=== PATIENT | male | born 1965 | race Caucasian/White ===

== ENCOUNTER → 2017-05-17 | Outpatient (CLI) | payer MEDICARE, OTHER ==
--- NOTE | 2017-05-17 14:37 | PN ---
PROGRESS NOTE 51-year-old gentleman has [facility] of obstructive sleep apnea-hypopnea syndrome. Recently patient had a polysomnogram and CPAP titration and I discussed results of sleep studies with patient in details. Recently, he was started on treatment with CPAP and able to use his machine without significant problems, except he does not feel very comfortable with his full face mask. I checked his CPAP unit. CPAP pressure is 11 cm of water as it was prescribed. Usage is 27/30 nights for more than 4 hours. Average usage 9.3 hours. Leak is in high range 44 L/minute. Apnea-hypopnea index is only 2.3, which is in normal range. MEDICATIONS: Lantus, NovoLog, niacin, Eliquis, aspirin, carvedilol, Lopid, Lasix, Cymbalta, lisinopril, Abilify, spironolactone, Protonix, nitroglycerin, Flonase, Claritin, B12, D supplement, temazepam. PHYSICAL EXAM: GENERAL During physical exam, patient in no distress. VITAL SIGNS BP 124/70, HR 104, RR 16, weight 263, temp 98.7, oxygen saturation room air 97%. HEENT PERRLA, EOMI, evaluation of oropharynx showed extremely low position of soft palate. NECK Supple, no JVD. Thyroid is not palpable. LUNGS Clear to percussion and to auscultation. Good air exchange. No wheezing or rhonchi. HEART S1, S2 regular. No murmurs, gallops, or rubs. ABDOMEN Obese. Soft and nontender. Bowel sounds are present. No organomegaly appreciated. EXTREMITIES No clubbing or cyanosis. PROJECT MANAGER/DESIGN MANAGER Awake, alert, and oriented X3. Cranial nerves 2 to 7 intact. There is no fasciculation or atrophy. noted. No focal deficits observed. IMPRESSION: 1. Obstructive sleep apnea-hypopnea syndrome on control with CPAP at 11 cm of water. Patient demonstrated close to 100% compliance with treatment benefitting from treatment. 2. The patient has some problem with the full-face mask. 3. Obesity. 4. Diabetes mellitus. 5. Coronary artery disease, status post CABG. 6. Status post defibrillator insertion. 7. Acid reflux. 8. History of sinusitis. PLAN: 1. We will consider to change fullface mask to nasal mask or nasal pillow mask. 2. Losing weight. 3. Continue to use CPAP every night for the whole night. 4. Lose losing weight. 5. No driving if feeling sleepiness. Thank you very much for allowing me to participate in management of your patient. Sincerely, Beka Ramirez MD, PhD, FAASM Diplomat of [employer] Hr Payroll Coordinator of [facility] Gary MMODL / IJN: [id number] /
== END | disposition home or self-care (01) ==
LOC: SLEEP 13:17
PROVIDERS: ATTEND Internal Medicine
DX: G47.33 Obstructive sleep apnea (adult) (pediatric) (principal); E66.9 Obesity, unspecified; E11.9 Type 2 diabetes mellitus without complications; I25.10 Atherosclerotic heart disease of native coronary artery without angina pectoris; K21.9 Gastro-esophageal reflux disease without esophagitis; Z95.1 Presence of aortocoronary bypass graft; Z79.899 Other long term (current) drug therapy; Z79.4 Long term (current) use of insulin; Z99.89 Dependence on other enabling machines and devices; Z79.82 Long term (current) use of aspirin; Z95.810 Presence of automatic (implantable) cardiac defibrillator; Z87.09 Personal history of other diseases of the respiratory system

== ENCOUNTER 2017-05-25 20:21 | Inpatient (IN) | payer MEDICARE, OTHER ==
[2017-05-25 21:46] LABS: Glucose,Whole Blood 135 mg/dL (75-99)
[2017-05-25] MEDS ORDERED: NALOXONE 0.4 MG/ML 1 ML VIAL IV PRN (22:07)
[2017-05-25] MEDS ORDERED: ALPRAZolam 0.25 MG TAB PO PRN (22:07)
[2017-05-25] MEDS ORDERED: TEMAZEPAM 15 MG CAP PO PRN (22:07)
[2017-05-25] MEDS ORDERED: ACETAMINOPHEN TAB 325 MG TAB PO PRN (22:07)
[2017-05-25] MEDS ORDERED: ALBUTEROL NEBULIZED 2.5 MG/3 ML INHALATION PRN (22:09)
[2017-05-25] MEDS ORDERED: TEMAZEPAM 7.5 MG CAP PO PRN (22:09)
[2017-05-25] MEDS ORDERED: NITROGLYCERIN SL TABS 0.4 MG TAB SUBLINGUAL PRN (22:09)
[2017-05-25 22:46] LABS: Basophils % (A) 0 %; Eosinophils % (A) 0 %; HCT 36.1 % (39.0-53.0); Lymphocytes % (A) 8 %; MCHC 33.3 g/dL (31.0-37.0); MCV 90.2 fL (80.0-100.0); Monocytes # (A) 0.6 k/uL (0-1.0); Monocytes % (A) 5 %; Neutrophils # (A) 10.3 k/uL (1.3-7.7); Neutrophils % (A) 84 %; Platelet Count 120 k/uL (150-450); RDW 12.7 % (11.5-15.5); WBC 12.1 k/uL (3.8-10.6)
[2017-05-25 22:56] LABS: ALT 49 U/L (21-72); AST 31 U/L (17-59); Alkaline Phosphatase 82 U/L (38-126); Anion Gap 10 mmol/L; Blood Urea Nitrogen 36 mg/dL (9-20); Calcium 8.1 mg/dL (8.4-10.2); Carbon Dioxide 25 mmol/L (22-30); Chloride 101 mmol/L (98-107); Glucose 128 mg/dL (74-99); Potassium 3.2 mmol/L (3.5-5.1); Sodium 136 mmol/L (137-145); Total Bilirubin 0.9 mg/dL (0.2-1.3); Total Protein 5.9 g/dL (6.3-8.2)
[2017-05-25] MEDS: INSULIN DETEMIR 100 UNIT/ML 10 ML VIAL SQ SCH (23:28)
[2017-05-25] MEDS: SODIUM CHLORIDE 0.9% 1,000 ML IV SCH (23:28)
[2017-05-25] MEDS ORDERED: Potassium Replacement Protocol 1 EACH MISC MISCELLANE PRN (23:32)
[2017-05-26] MEDS: ceFAZolin IN SWFI 2 GM/20 ML SYRINGE IVP SCH ×4 (00:08→23:45)
[2017-05-26] MEDS: POTASSIUM CHLORIDE ER 20 MEQ TAB.ER PO SCH ×6 (00:08→14:41)
[2017-05-26 06:21] LABS: Basophils % (A) 0 %; Eosinophils % (A) 0 %; HCT 36.3 % (39.0-53.0); HGB 11.7 gm/dL (13.0-17.5); Lymphocytes # (A) 0.9 k/uL (1.0-4.8); Lymphocytes % (A) 7 %; MCH 29.6 pg (25.0-35.0); MCHC 32.2 g/dL (31.0-37.0); MCV 91.9 fL (80.0-100.0); Mean Platelet Volume 8.5; Monocytes # (A) 0.6 k/uL (0-1.0); Monocytes % (A) 5 %; Neutrophils # (A) 10.8 k/uL (1.3-7.7); Neutrophils % (A) 87 %; Platelet Count 127 k/uL (150-450); RBC 3.95 m/uL (4.30-5.90); RDW 13.6 % (11.5-15.5); WBC 12.5 k/uL (3.8-10.6)
[2017-05-26 06:31] LABS: Anion Gap 9 mmol/L; Blood Urea Nitrogen 31 mg/dL (9-20); Calcium 8.2 mg/dL (8.4-10.2); Carbon Dioxide 26 mmol/L (22-30); Chloride 102 mmol/L (98-107); Glucose 130 mg/dL (74-99); Sodium 137 mmol/L (137-145)
[2017-05-26 06:34] LABS: Glucose,Whole Blood 138 mg/dL (75-99)
[2017-05-26 06:37] LABS: Potassium 3.4 mmol/L (3.5-5.1)
[2017-05-26] MEDS: INSULIN ASPART 100 UNIT/ML 1 ML 10 ML VIAL SQ SCH ×3 (07:14→17:37)
[2017-05-26] MEDS: PANTOPRAZOLE 40 MG TABLET PO SCH (07:15)
[2017-05-26] MEDS: GEMFIBROZIL 600 MG TAB PO SCH ×2 (07:15→17:37)
[2017-05-26] MEDS: HYDROmorphone 0.5 MG/0.5 ML SYRINGE IVP PRN (08:40)
[2017-05-26] MEDS: APIXABAN 5 MG TAB PO SCH ×2 (08:41→21:25)
[2017-05-26] MEDS: ARIPiprazole 5 MG TAB PO SCH (08:41)
[2017-05-26] MEDS: FATTY ACIDS PO SCH ×2 (08:42→20:57)
[2017-05-26] MEDS: FLUTICASONE 50MCG/SPRAY NASAL 16GM EA NOSTRIL SCH (08:42)
[2017-05-26] MEDS: OMEGA PO SCH ×2 (08:42→20:57)
[2017-05-26] MEDS: DULoxetine HCL 60 MG CAPSULE.DR PO SCH (08:42)
[2017-05-26] MEDS: LISINOPRIL 2.5 MG TAB PO SCH (08:42)
[2017-05-26] MEDS: CARVEDILOL 3.125 MG TAB PO SCH ×2 (08:42→21:25)
[2017-05-26] MEDS: MAGNESIUM OXIDE 400 MG TAB PO SCH (08:42)
[2017-05-26] MEDS: LORATADINE 10 MG TAB PO SCH (08:42)
--- NOTE | 2017-05-26 08:55 | P.CRDCN ---
History of Present Illness History of present illness: Patient was transferred from [facility]. He was complaining of nausea vomiting He denied any chest discomfort we no shortness of breath no dizziness lightheadedness. He is sleeping comfortably in bed Patient Dr. Santana. Past history of coronary artery disease coronary artery bypass grafting ICD implantation ischemic adenopathy hypertension dyslipidemia diabetes prior history of smoking Multiple coronary stents Medication list is reviewed and as documented in the chart NO KNOWN DRUG ALLERGIES Review of systems: No fever chills or rigors, no cough, phlegm or expectoration , positive GI symptoms, no hematuria, dysuria, no musculoskeletal complaints, no strokes or seizures, no skin lesions. Stress test few months back showed reduced LV systolic function which is chronic , no stress-induced ischemia noted The echo has shown severe LV dysfunction ejection fraction less than 20% Impression Patient admitted with upper GI symptoms. Denies any chest discomfort or shortness of breath does not appear to be in overt heart failure does have a chronic reduced LV systolic function CAD coronary artery bypass grafting ischemic cardio myopathy ICD implant Suggest Troponin level BMP Continue cardiac medications Past Medical History Past Medical History: Coronary Artery Disease (CAD), Diabetes Mellitus, GERD/ Reflux, Hyperlipidemia, Hypertension History of Any Multi-Drug Resistant Organisms: None Reported Past Surgical History: AICD, Cholecystectomy, Coronary Bypass/CABG, Heart Catheterization With Stent Additional Past Surgical History / Comment(s): LEFT ROTATOR CUFF REPAIR CABG-4 VESSELS, HEART STENTS X ?2-3 Past Anesthesia/Blood Transfusion Reactions: No Reported Reaction Date of Last Stent Placement:: 2011 APPROX Type of Cardiac Device: AICD Device Placement Date:: July 2014 Past Psychological History: Depression Smoking Status: Former smoker Past Alcohol Use History: None Reported Additional Past Alcohol Use History / Comment(s): QUIT SMOKING APPROX 2005, STARTED SMOKING AT AGE 18 Past Drug Use History: None Reported - Past Family History Father Family Medical History: Cancer Additional Family Medical History / Comment(s): LIVER Medications and Allergies Home Medications Medication Instructions Recorded Confirmed Type ARIPiprazole [Abilify] 5 mg PO DAILY 07/06/14 05/25/17 History DULoxetine HCL [Cymbalta] 60 mg PO DAILY 07/06/14 05/25/17 History Gemfibrozil [Lopid] 600 mg PO AC-BID 07/06/14 05/25/17 History Insulin Glargine [Lantus] 90 unit SQ HS 07/06/14 05/25/17 History Albuterol Inhaler [Ventolin Hfa 2 puff INHALATION RT-Q4H PRN 08/31/15 05/25/17 History Inhaler] Fluticasone Nasal [place] [Flonase 1 spr EA NOSTRIL DAILY 08/31/15 05/25/17 History Nasal [place]] Magnesium Oxide [Mag-Ox] 400 mg PO DAILY 08/31/15 05/25/17 History Niacin [Niacin ER] 1,000 mg PO HS 08/31/15 05/25/17 History [place]-3 Fatty Acids [[place]-3] 1 gm PO BID 08/31/15 05/25/17 History Atorvastatin [Lipitor] 80 mg PO HS #30 tab 09/04/15 05/25/17 Rx Lisinopril [Zestril] 2.5 mg PO DAILY #30 tab 09/04/15 05/25/17 Rx Nitroglycerin Sl Tabs [Nitrostat] 0.4 mg SUBLINGUAL Q5M PRN #25 tab 09/04/15 Rx Pantoprazole [Protonix] 40 mg PO AC-BRKFST #30 tablet.dr 09/04/15 05/25/17 Rx Apixaban [Eliquis] 5 mg PO BID 02/13/17 05/25/17 History Carvedilol [Coreg] 3.125 mg PO BID 02/13/17 05/25/17 History Ergocalciferol [Vitamin D2 50,000 unit PO Q7D 02/13/17 05/25/17 History ([place])] Hydrocodone/Acetaminophen [[place] 1 tab PO TID PRN 02/13/17 05/25/17 History 7.5-325] Insulin Aspart [NovoLOG Flexpen] 15 units SQ AC-TID 02/13/17 05/25/17 History Loratadine [Claritin] 10 mg PO DAILY 02/13/17 05/25/17 History Temazepam [Restoril] 7.5 - 15 mg PO HS PRN 02/13/17 05/25/17 History Allergies Allergy/AdvReac Type Severity Reaction Status Date / Time No Known Allergies Allergy Verified 05/25/17 22:13 Physical Exam Vitals: Vital Signs Temp Pulse Resp BP Pulse Ox 05/26/17 08:15 98.2 F 104 H 18 135/72 96 05/26/17 04:00 98.5 F 95 16 120/76 96 05/26/17 00:00 97.9 F 90 16 100/56 98 05/25/17 22:02 99.2 F 90 16 116/65 95 Intake and Output 05/25/17 05/26/17 05/26/17 22:59 06:59 14:59 Intake Total 660 Output Total 40 750 Balance 620 -750 Intake: IV 160 Sodium Chloride 0.9% 1, 160 000 ml @ 20 mls/hr IV . Q24H [facility] Rx#:[id number] Oral 500 Output: Urine 750 Stool 40 Other: Voiding Method Toilet Urinal # Voids 1 Weight 115.212 kg 117.1 kg Results 05/26/17 05:50 05/26/17 05:50 Cardiac Enzymes 05/25/17 Range/Units 22:25 AST 31 (17-59) U/L CBC 05/25/17 05/26/17 Range/Units 22:25 05:50 WBC 12.1 H 12.5 H (3.8-10.6) k/uL RBC 4.00 L 3.95 L (4.30-5.90) m/uL Hgb 12.0 L 11.7 L (13.0-17.5) gm/dL Hct 36.1 L 36.3 L (39.0-53.0) % Plt Count 120 L 127 L (150-450) k/uL Comprehensive Metabolic Panel 05/25/17 05/26/17 Range/Units 22:25 05:50 Sodium 136 L 137 (137-145) mmol/L Potassium 3.2 L 3.4 L (3.5-5.1) mmol/L Chloride 101 102 (98-107) mmol/L Carbon Dioxide 25 26 (22-30) mmol/L BUN 36 H 31 H (9-20) mg/dL Creatinine 1.00 1.00 (0.66-1.25) mg/dL Glucose 128 H 130 H (74-99) mg/dL Calcium 8.1 L 8.2 L (8.4-10.2) mg/dL AST 31 (17-59) U/L ALT 49 (21-72) U/L Alkaline Phosphatase 82 (38-126) U/L Total Protein 5.9 L (6.3-8.2) g/dL Albumin 3.0 L (3.5-5.0) g/dL Current Medications Generic Name Dose Route Start Last Admin Trade Name Freq PRN Reason Stop Dose Admin Acetaminophen 650 mg 05/25/17 22:07 Tylenol Tab PO Q6HR PRN Mild Pain or Fever > 100.5 Hydrocodone Bitart/Acetaminophen 1 each 05/25/17 22:07 [place] 5-325 PO Q4HR PRN Moderate Pain Hydrocodone Bitart/Acetaminophen 1 each 05/25/17 22:09 [place] 7.5-325 PO TID PRN Pain Albuterol Sulfate 2.5 mg 05/25/17 22:09 Ventolin Nebulized INHALATION RT-Q4H PRN Shortness Of Breath Alprazolam 0.25 mg 05/25/17 22:07 Xanax PO Q6HR PRN Anxiety Apixaban 5 mg 05/26/17 09:00 05/26/17 08:41 Eliquis PO 5 mg BID [facility] Administration Aripiprazole 5 mg 05/26/17 09:00 05/26/17 08:41 Abilify PO 5 mg DAILY [facility] Administration Atorvastatin Calcium 80 mg 05/26/17 21:00 Lipitor PO HS [facility] Carvedilol 3.125 mg 05/26/17 09:00 05/26/17 08:42 Coreg PO 3.125 mg BID [facility] Administration Cefazolin Sodium 2 gm 05/26/17 00:00 05/26/17 00:08 Kefzol IVP 2 gm Q8HR [facility] Administration Duloxetine HCl 60 mg 05/26/17 09:00 05/26/17 08:42 Cymbalta PO 60 mg DAILY [facility] Administration Ergocalciferol 50,000 unit 05/27/17 09:00 Vitamin D2 PO Q7D [facility] Fluticasone Propionate 1 spray 05/26/17 09:00 05/26/17 08:42 Flonase Nasal [place] EA NOSTRIL 1 spray DAILY [facility] Administration Gemfibrozil 600 mg 05/26/17 07:30 05/26/17 07:15 Lopid PO 600 mg AC-BID [facility] Administration Hydromorphone HCl 0.5 mg 05/25/17 22:12 05/26/17 08:40 Dilaudid IVP 0.5 mg Q6HR PRN Administration Severe Pain Sodium Chloride 1,000 mls @ 20 mls/hr 05/25/17 22:15 05/25/17 23:28 Saline 0.9% IV 20 mls/hr .Q24H [facility] Administration Insulin Aspart 15 unit 05/26/17 07:30 05/26/17 07:14 Novolog SQ 15 unit AC-TID [facility] Administration Insulin Detemir 90 unit 05/25/17 22:15 05/25/17 23:28 Levemir SQ 90 unit HS [facility] Administration Lisinopril 2.5 mg 05/26/17 09:00 05/26/17 08:42 Zestril PO 2.5 mg DAILY [facility] Administration Loratadine 10 mg 05/26/17 09:00 05/26/17 08:42 Claritin PO 10 mg DAILY [facility] Administration Magnesium Oxide 400 mg 05/26/17 09:00 05/26/17 08:42 Mag-Ox PO 400 mg DAILY [facility] Administration Miscellaneous Information 1 each 05/25/17 23:32 Potassium Per Protocol MISCELLANE DAILY PRN Per Protocol Protocol Naloxone HCl 0.2 mg 05/25/17 22:07 Narcan IV Q2M PRN Opioid Reversal Niacin 1,000 mg 05/26/17 21:00 Niacin Tr PO HS [facility] Nitroglycerin 0.4 mg 05/25/17 22:09 Nitrostat SUBLINGUAL Q5M PRN Chest Pain Non-Formulary Medication 1 gm 05/26/17 09:00 05/26/17 08:42 [place]-3 Fatty Acids [[place]-3] PO Not Given BID [facility] Pantoprazole Sodium 40 mg 05/26/17 07:30 05/26/17 07:15 Protonix PO 40 mg AC-BRKFST [facility] Administration Potassium Chloride 20 meq 05/26/17 08:00 05/26/17 08:41 K-Dur 20 PO 05/26/17 09:01 20 meq Q1HR [facility] Administration Temazepam 15 mg 05/25/17 22:07 Restoril PO HS PRN Insomnia Intake and Output 05/25/17 05/26/17 05/26/17 22:59 06:59 14:59 Intake Total 660 Output Total 40 750 Balance 620 -750 Intake: IV 160 Sodium Chloride 0.9% 1, 160 000 ml @ 20 mls/hr IV . Q24H [facility] Rx#:[id number] Oral 500 Output: Urine 750 Stool 40 Other: Voiding Method Toilet Urinal # Voids 1 Weight 115.212 kg 117.1 kg 05/26/17 05:50 05/26/17 05:50
[2017-05-26 09:01] LABS: Appearance,Urine Clear (Clear); Bilirubin,Urine Negative (Negative); Blood,Urine Negative (Negative); Color,Urine Yellow; Glucose,Urine (UA) Negative (Negative); Ketones,Urine Negative (Negative); Leukocyte Esterase,Urine Negative (Negative); Nitrite,Urine Negative (Negative); PH, Urine 5.5 (5.0-8.0); Protein,Urine Trace (Negative); Specific Gravity,Urine 1.018 (1.001-1.035); Urobilinogen,Urine <2.0 mg/dL (<2.0)
--- NOTE | 2017-05-26 09:13 | HP ---
HISTORY AND PHYSICAL DATE OF SERVICE: 05/25/2017 CHIEF COMPLAINT: Pain and swelling of the left leg and cellulitis. HISTORY OF PRESENT ILLNESS: This 51-year-old gentleman with a past medical history of multiple medical problems including CAD, history of diabetes mellitus, GERD, hypertension, hyperlipidemia, AICD, CAD, CABG, stent, depression being followed by Dr. Hilaria Patel in the outpatient setting apparently presented to [facility] with complaints of pain and swelling and discomfort of the left leg, which is going for several days according to him. The patient was noted to have hypotension, possibly due to sepsis suspected. Patient is on IV fluids, antibiotics and subsequently patient was transferred to [facility] for evaluation and treatment. Lactic acid is elevated elsewhere. There is no history of any chest pain, palpitation. No headache, loss of consciousness, seizures at this time. PAST MEDICAL HISTORY: History of CAD, diabetes mellitus type 2, GERD, hypertension, hyperlipidemia, AICD, cholecystectomy, CAD, CABG. MEDICATIONS: Prior to admission include home medications are: 1. Restoril 7.5/250 mg q.h.s. p.r.n. 2. Protonix 40 mg daily. 3. [place]-3 fatty acids p.o. b.i.d. 4. Nitrostat 0.4 mg p.r.n. 5. Niacin ER 1000 mg q.h.s. 6. Magnesium oxide 400 mg b.i.d. 7. Claritin 10 mg p.o. daily. 8. Zestril 2.5 mg p.o. daily. 9. Lantus 90 units subcu q.h.s. 10.NovoLog FlexPen 15 units a.c. t.i.d. 11.[place] 7.5 t.i.d. p.r.n. 12.Lopid 600 mg a.c. b.i.d. 13.Flonase 1 spray daily. 14.Vitamin D2 50,000 q.7 days. 15.Cymbalta 60 mg p.o. daily. 16.Coreg 3.125 mg p.o. b.i.d. 17.Lipitor 80 mg q.h.s. 18.Eliquis 5 mg p.o. b.i.d. 19.Ventolin HFA 2 puffs q.4h p.r.n. 20.Abilify 5 mg p.o. daily. ALLERGIES: None. FAMILY HISTORY: History of liver cancer in the family. SOCIAL HISTORY: Previous smoking. No history of current smoking or alcohol intake. REVIEW OF SYSTEMS: ENT: Diminished vision. No diminished hearing. CARDIOVASCULAR: No angina, palpitations. RESPIRATORY: No cough or hemoptysis. GI: No nausea. : No dysuria. NERVOUS SYSTEM: As mentioned. ALLERGIES/IMMUNOLOGY: No asthma. MUSCULOSKELETAL: As mentioned earlier. HEMATOLOGY: No history of anemia. ENDOCRINE: As mentioned earlier. CONSTITUTIONAL: As mentioned earlier. DERMATOLOGY: Negative. RHEUMATOLOGY: Negative. PSYCHIATRIC: As mentioned earlier. PHYSICAL EXAM: Patient is alert, oriented x3. Pulse 90, blood pressure 116/60, respiration 18, temperature 99.2, pulse ox 94% room air. HEENT: Conjunctivae normal. Oral mucosa moist. Neck is no jugular venous distention. No carotid bruit. No lymph node enlargement. CARDIOVASCULAR: S1, S2. No S3, no S4. RESPIRATORY: Breath sounds diminished in the bases. A few scattered rhonchi. No crackles. ABDOMEN: Soft, nontender. No mass palpable. LEGS: Left leg swelling erythematous and evidence of cellulitis also present, minimally tender. Multiple areas of excoriations and ulcerations also noted. The exact etiology is unknown to the patient on both legs. NERVOUS SYSTEM: Higher functions as mentioned earlier, moves all 4 limbs, no focal motor sensory deficits. LYMPHATICS: No lymphadenopathy in the neck, axillae, groin. SKIN: No ulcers, rash or bleeding. LABS: WBC 12.2, hemoglobin is 12, sodium 133, potassium 3.2, albumin 3. ASSESSMENT: 1. Acute cellulitis of the bilateral legs, left more than the right with some ulcerations with sepsis present on admission. 2. Increased WBC. 3. Anemia of chronic disease. 4. Thrombocytopenia. 5. Hyponatremia. 6. Hypokalemia. 7. History of coronary artery disease, CABG, stent. 8. History of diabetes type 2. 9. Hypertension. 10.Hyperlipidemia. 11.Gastroesophageal reflux disease. 12.Possible diabetic peripheral neuropathy. 13.History of AICD. 14.History of depression. 15.Remote history of nicotine dependence. RECOMMENDATIONS AND DISCUSSION: This 51-year-old gentleman who presented with multiple complex medical issues, we will monitor the patient closely. Continue the current management and symptomatic treatment. Continue broad spectrum IV antibiotics. Obtain cultures. Resume the home medications. DVT prophylaxis. Obtain cultures. Prognosis guarded because of multiple complex medical issues. Further recommendations to follow. Copy of dictation being forwarded to Dr. Hilaria Patel who is the primary physician. [id number] / LETTYN: [id number] /
[2017-05-26] MEDS: HYDROcodone/APAP 5-325MG 1 EACH TAB PO PRN ×2 (10:15→17:37)
[2017-05-26 12:17] LABS: Glucose,Whole Blood 159 mg/dL (75-99)
--- NOTE | 2017-05-26 16:59 | US ---
EXAMINATION TYPE: US venous doppler duplex LE LT DATE OF EXAM: 05/26/2017 4:44 PM COMPARISON: None CLINICAL HISTORY: 51-year-old male R/O DVT LEFT LEG. Pt states painful, swollen left leg SIDE PERFORMED: Left TECHNIQUE: The lower extremity deep venous system is examined utilizing real time linear array sonog lucas with graded compression, doppler sonography and color-flow sonography. FINDINGS: VESSELS IMAGED: External Iliac Vein (EIV) Common Femoral Vein Deep Femoral Vein Greater Saphenous Vein * Femoral Vein Popliteal Vein Small Saphenous Vein * Proximal Calf Veins (* superficial vessels) Left Leg: Negative for DVT Numerous prominent but nonenlarged left inguinal lymph nodes measuring up to 1 cm short axis. Mildly complex Wen's cyst left pop fossa= 4.2 x 2.0 x 3.9 cm IMPRESSION: 1. No evidence for DVT within the left lower extremity imaged from the groin to the upper calf. 2. Findings suggest a small to moderate sized, mildly complex Wen's cyst. 3. Numerous prominent but nonenlarged left inguinal lymph nodes probably reactive. These can be asses sed and followed clinically.
[2017-05-26 17:13] LABS: Glucose,Whole Blood 109 mg/dL (75-99)
[2017-05-26] MEDS ORDERED: POTASSIUM CHLORIDE ER 20 MEQ TAB.ER PO SCH (19:00)
[2017-05-26] MEDS: ATORVASTATIN 80 MG TAB PO SCH (21:25)
[2017-05-26] MEDS: NIACIN TR 250 MG CAPSULE.ER PO SCH (21:25)
[2017-05-26 21:35] LABS: Glucose,Whole Blood 70 mg/dL (75-99)
[2017-05-26] MEDS: INSULIN DETEMIR 100 UNIT/ML 10 ML VIAL SQ SCH (22:32)
[2017-05-26] MEDS: SODIUM CHLORIDE 0.9% 1,000 ML IV SCH (22:32)
[2017-05-27] MEDS: HYDROmorphone 0.5 MG/0.5 ML SYRINGE IVP PRN ×2 (00:29→15:17)
[2017-05-27] MEDS: HYDROcodone/APAP 7.5-325MG 1 EACH TAB PO PRN ×3 (04:54→20:07)
[2017-05-27 06:36] LABS: Basophils % (A) 0 %; Eosinophils % (A) 0 %; HCT 34.9 % (39.0-53.0); HGB 11.4 gm/dL (13.0-17.5); Lymphocytes % (A) 9 %; MCH 29.4 pg (25.0-35.0); MCHC 32.5 g/dL (31.0-37.0); MCV 90.3 fL (80.0-100.0); Mean Platelet Volume 8.7; Monocytes # (A) 0.7 k/uL (0-1.0); Monocytes % (A) 7 %; Neutrophils # (A) 9.1 k/uL (1.3-7.7); Neutrophils % (A) 83 %; Platelet Count 127 k/uL (150-450); RBC 3.86 m/uL (4.30-5.90); RDW 13.2 % (11.5-15.5)
[2017-05-27 06:46] LABS: Glucose,Whole Blood 193 mg/dL (75-99)
[2017-05-27 06:47] LABS: Anion Gap 8 mmol/L; Blood Urea Nitrogen 25 mg/dL (9-20); Calcium 7.9 mg/dL (8.4-10.2); Carbon Dioxide 26 mmol/L (22-30); Chloride 103 mmol/L (98-107); Glucose 105 mg/dL (74-99); Sodium 137 mmol/L (137-145)
--- NOTE | 2017-05-27 07:05 | PN ---
PROGRESS NOTE DATE OF SERVICE: 05/26/2017 This 51-year-old gentleman who was admitted with pain and swelling of the left leg and cellulitis also had hypotension also. The patient had features of early sepsis. The patient also had extensive cardiac history. The patient does have some swelling on the left leg also. The ejection fraction found to be 20%. No stress induced ischemia directly in the recent stress test. A venous Doppler was ordered today which showed a Wen's cyst, but no DVT. Lymph nodes also noted. PAST MEDICAL HISTORY: Reviewed. REVIEW OF SYSTEMS: CARDIOVASCULAR: As mentioned. RESPIRATORY: As mentioned. GI: No nausea. : No dysuria. NERVOUS SYSTEM: As mentioned earlier. CURRENT MEDICATIONS: 1. Tylenol 650 q.6 p.r.n. 2. [place] 5 mg q.4h p.r.n. 3. [place] 7.5 t.i.d. p.r.n. 4. Ventolin 2.5 q.4h p.r.n. 5. Xanax 0.5 q.6h p.r.n. 6. Eliquis 5 mg p.o. b.i.d. 7. Abilify 5 mg p.o. daily. 8. Lipitor 80 mg q.h.s. 9. Coreg 3.125 mg b.i.d. 10.Kefzol 2 g IV q.8h. 11.Cymbalta 60 mg daily. 12.Vitamin D2 50,000 daily. 13.Flonase 1 daily. 14.Lopid 600 mg b.i.d. 15.Dilaudid 0.5 q.6h p.r.n. 16.NovoLog and Levemir 19 units subcu q.h.s. 17.Zestril 2.5 mg. 18.Claritin 10 mg. 19.Magnesium oxide 400 mg daily. 20.Narcan 0.2 q.2h p.r.n. 21.Niacin 1000 mg q.h.s. 22.Nitrostat 0.4 mg p.r.n. 23.[place]-3 fatty acids b.i.d. 24.Protonix 40 mg daily. 25.Restoril 50 mg q.h.s. p.r.n. PHYSICAL EXAM: Patient is alert, oriented x3. Pulse is 106. Blood pressure 138/71, respiration 18, temp 98.6, pulse ox 94% room air. HEENT: Conjunctivae normal. Oral mucosa moist. Neck is no jugular venous distention. No carotid bruit. No lymph node enlargement. CARDIOVASCULAR: S1, S2. RESPIRATORY: Breath sounds diminished in the bases. A few scattered rhonchi, no crackles. ABDOMEN: Soft, nontender. LEGS: Left leg edema and swelling present and tenderness also present. Significant cellulitis also present. Pulses diminished bilaterally NERVOUS SYSTEM: Higher function as mentioned earlier, moves all 4 limbs. Otherwise minimal sensory neuropathy present bilaterally. SKIN: As mentioned earlier. LAB INVESTIGATIONS: At this time shows WBC 12.5, hemoglobin 11.7, platelets 127, otherwise glucose 70. C difficile is negative. ASSESSMENT: 1. Acute cellulitis of bilateral legs, left more than the right with multiple ulcerations and sepsis present on admission. 2. Increased WBC. 3. Anemia of chronic disease. 4. Thrombocytopenia. 5. Hyponatremia. 6. Hypokalemia. 7. History of coronary artery disease, CABG, stent. 8. Congestive heart failure with chronic systolic dysfunction, ejection fraction 20%. 9. History of diabetes mellitus type 2. 10.Hypertension. 11.Hyperlipidemia. 12.Gastroesophageal reflux disease. 13.Possible diabetic peripheral neuropathy. 14.History AICD. 15.History of depression. 16.Remote history of nicotine dependence. 17.FULL CODE. RECOMMENDATIONS AND DISCUSSION: This 51-year-old gentleman who presented with multiple complex medical issues, will monitor the patient closely. Continue the current management and symptomatic treatment. At this time, I recommend broad-spectrum IV antibiotics. I would also recommend infectious disease evaluation. The cultures are negative so far. Otherwise repeat labs will be ordered. Continue the rest of the medications. DVT prophylaxis. Guarded prognosis. Multiple complex medical issues and further recommendations to follow. Monitor blood sugars closely. MMODL / IJN: [id number] /
[2017-05-27] MEDS: GEMFIBROZIL 600 MG TAB PO SCH ×2 (07:08→17:46)
[2017-05-27] MEDS: INSULIN ASPART 100 UNIT/ML 1 ML 10 ML VIAL SQ SCH ×7 (07:08→20:07)
[2017-05-27] MEDS: PANTOPRAZOLE 40 MG TABLET PO SCH (07:08)
[2017-05-27] MEDS: FLUTICASONE 50MCG/SPRAY NASAL 16GM EA NOSTRIL SCH (08:43)
[2017-05-27] MEDS: ARIPiprazole 5 MG TAB PO SCH (08:44)
[2017-05-27] MEDS: CARVEDILOL 3.125 MG TAB PO SCH ×2 (08:44→20:09)
[2017-05-27] MEDS: DULoxetine HCL 60 MG CAPSULE.DR PO SCH (08:44)
[2017-05-27] MEDS: APIXABAN 5 MG TAB PO SCH ×2 (08:44→20:08)
[2017-05-27] MEDS: OMEGA PO SCH ×2 (08:45→20:09)
[2017-05-27] MEDS: LISINOPRIL 2.5 MG TAB PO SCH (08:45)
[2017-05-27] MEDS: FATTY ACIDS PO SCH ×2 (08:45→20:09)
[2017-05-27] MEDS: LORATADINE 10 MG TAB PO SCH (08:45)
[2017-05-27] MEDS: MAGNESIUM OXIDE 400 MG TAB PO SCH (08:45)
[2017-05-27] MEDS ORDERED: ERGOCALCIFEROL 50,000 UNIT CAP PO SCH (09:00)
[2017-05-27] MEDS: ceFAZolin IN SWFI 2 GM/20 ML SYRINGE IVP SCH ×3 (09:39→23:39)
[2017-05-27 11:43] LABS: Glucose,Whole Blood 392 mg/dL (75-99)
--- NOTE | 2017-05-27 13:30 | P.PN ---
Subjective Patient is doing well. He denies any chest discomfort no undue shortness of breath or dizziness or lightheadedness or palpitations On examination his blood pressure is 104/62 mmHg pulse rate in the 80s and 90s, afebrile 98.3F Breath sounds are clear no rhonchi no crackles heart sounds are normal normal S1 normal S2 Abdomen is soft nontender Extended is warm no edema Impression Known cardiac myopathy and congestive heart failure systolic, chronic normal cardiac enzymes Status post ICD implant Suggest Continue current medications without any changes Objective - Vital Signs Vital signs: Vital Signs Temp 98.3 F 05/27/17 08:23 Pulse 92 05/27/17 08:23 Resp 16 05/27/17 08:23 BP 104/62 05/27/17 08:23 Pulse Ox 94 L 05/27/17 08:23 Intake & Output 05/26/17 05/27/17 05/27/17 18:59 06:59 18:59 Intake Total 180 1340 360 Output Total 790 350 Balance -610 990 360 Weight 117.1 kg 117.934 kg Intake: IV 160 Sodium Chloride 0.9% 1, 160 000 ml @ 20 mls/hr IV . Q24H [facility] Rx#:[id number] Intake, IV Titration 1000 Amount Sodium Chloride 0.9% 1, 1000 000 ml @ 20 mls/hr IV . Q24H [facility] Rx#:[id number] Oral 180 180 360 Output: Urine 750 350 Stool 40 Other: Voiding Method Toilet Toilet Toilet Urinal Urinal Urinal # Voids 1 - Labs CBC & Chem 7: 05/27/17 05:59 05/27/17 05:59 Labs: Abnormal Lab Results - Last 24 Hours (Table) 05/26/17 05/26/17 05/27/17 Range/Units 17:09 21:15 05:59 WBC 11.0 H (3.8-10.6) k/uL RBC 3.86 L (4.30-5.90) m/uL Hgb 11.4 L (13.0-17.5) gm/dL Hct 34.9 L (39.0-53.0) % Plt Count 127 L (150-450) k/uL Neutrophils # 9.1 H (1.3-7.7) k/uL BUN (9-20) mg/dL Glucose (74-99) mg/dL POC Glucose (mg/dL) 109 H 70 L (75-99) mg/dL Calcium (8.4-10.2) mg/dL 05/27/17 05/27/17 05/27/17 Range/Units 05:59 06:36 11:31 WBC (3.8-10.6) k/uL RBC (4.30-5.90) m/uL Hgb (13.0-17.5) gm/dL Hct (39.0-53.0) % Plt Count (150-450) k/uL Neutrophils # (1.3-7.7) k/uL BUN 25 H (9-20) mg/dL Glucose 105 H (74-99) mg/dL POC Glucose (mg/dL) 193 H 392 H (75-99) mg/dL Calcium 7.9 L (8.4-10.2) mg/dL Microbiology - Last 24 Hours (Table) 05/25/17 22:25 Blood Culture - Preliminary Blood No Growth after 24 hours 05/25/17 22:40 Gram Stain - Preliminary Foot - Left Wound Culture - Preliminary
[2017-05-27 16:01] LABS: Glucose,Whole Blood 84 mg/dL (75-99)
[2017-05-27 17:14] LABS: Glucose,Whole Blood 78 mg/dL (75-99)
--- NOTE | 2017-05-27 18:38 | PN ---
PROGRESS NOTE DATE OF SERVICE: 05/27/2017 INTERIM HISTORY: This 51-year-old gentleman who was admitted with acute cellulitis bilateral legs , also with possible history of sepsis also. The patient's blood sugar is also fluctuating at this time. The venous Doppler showed no acute DVT. No chest pain. No palpitations. EXAM: Alert and oriented x3. Pulse is 95, blood pressure 111/56, respirations 16, temperature 98.2, pulse ox 99% on room air. HEENT: Conjunctivae normal. Neck is no jugular venous distention. Cardiovascular: S1, S2. Respirations: Breath sounds diminished in the bases. A few scattered rhonchi and no crackles. Abdomen is soft, obese, nontender. Legs: Left leg edema cellulitis. Central nervous system: No focal deficits. LAB STUDIES: WBC 11, hemoglobin 11.4, glucose 392. ASSESSMENT: 1. Acute cellulitis of bilateral legs, left more than the right with multiple ulcerations, sepsis present on admission. 2. Increased WBC. 3. Anemia of chronic disease. 4. Hypoglycemia with diabetes type 2, uncontrolled. 5. Thrombocytopenia. 6. Hyponatremia. 7. Hypokalemia. 8. History of coronary artery disease, coronary artery bypass grafting, stent. 9. History of congestive heart failure with chronic systolic dysfunction, ejection fraction 20%. 10.History of diabetes type 2. 11.Hypertension. 12.Hyperlipidemia. 13.Gastroesophageal reflux disease. 14.History of diabetic nephropathy. 15.History AICD. 16.History of depression. 17.Remote history of nicotine dependence. 18.FULL CODE. RECOMMENDATIONS AND DISCUSSION: Recommend to continue current medications, continue symptomatic treatment. Adjust dose of nighttime insulin. Otherwise continue the rest of medication. Continue the broad- spectrum IV antibiotics. The cultures are negative so far. Closely follow. Further recommendations to follow. MMODL / IJN: [id number] / MARY
[2017-05-27 19:20] LABS: Hemoglobin A1C 6.9 % (4.0-6.0)
[2017-05-27 20:03] LABS: Glucose,Whole Blood 174 mg/dL (75-99)
[2017-05-27] MEDS: NIACIN TR 250 MG CAPSULE.ER PO SCH (20:08)
[2017-05-27] MEDS: ATORVASTATIN 80 MG TAB PO SCH (20:08)
[2017-05-27] MEDS: INSULIN DETEMIR 100 UNIT/ML 10 ML VIAL SQ SCH (21:31)
[2017-05-27] MEDS: SODIUM CHLORIDE 0.9% 1,000 ML IV SCH (23:43)
[2017-05-28] MEDS: HYDROcodone/APAP 7.5-325MG 1 EACH TAB PO PRN ×3 (05:17→22:20)
[2017-05-28 07:16] LABS: Glucose,Whole Blood 121 mg/dL (75-99)
[2017-05-28] MEDS: INSULIN ASPART 100 UNIT/ML 1 ML 10 ML VIAL SQ SCH ×7 (07:38→21:34)
[2017-05-28 07:41] LABS: Basophils % (A) 0 %; Eosinophils # (A) 0.1 k/uL (0-0.7); Eosinophils % (A) 1 %; Lymphocytes # (A) 1.1 k/uL (1.0-4.8); Lymphocytes % (A) 11 %; MCH 29.6 pg (25.0-35.0); MCHC 32.4 g/dL (31.0-37.0); MCV 91.5 fL (80.0-100.0); Mean Platelet Volume 8.4; Monocytes # (A) 0.7 k/uL (0-1.0); Monocytes % (A) 7 %; Neutrophils # (A) 7.9 k/uL (1.3-7.7); Neutrophils % (A) 80 %; Platelet Count 143 k/uL (150-450); RBC 3.71 m/uL (4.30-5.90); RDW 12.5 % (11.5-15.5); WBC 9.9 k/uL (3.8-10.6)
[2017-05-28 08:13] LABS: Anion Gap 8 mmol/L; Blood Urea Nitrogen 22 mg/dL (9-20); Calcium 8.3 mg/dL (8.4-10.2); Carbon Dioxide 26 mmol/L (22-30); Chloride 102 mmol/L (98-107); Glucose 119 mg/dL (74-99); Sodium 136 mmol/L (137-145)
[2017-05-28] MEDS: GEMFIBROZIL 600 MG TAB PO SCH ×2 (08:13→17:33)
[2017-05-28] MEDS: ARIPiprazole 5 MG TAB PO SCH (08:14)
[2017-05-28] MEDS: PANTOPRAZOLE 40 MG TABLET PO SCH (08:14)
[2017-05-28] MEDS: APIXABAN 5 MG TAB PO SCH ×2 (08:14→22:21)
[2017-05-28] MEDS: DULoxetine HCL 60 MG CAPSULE.DR PO SCH (08:15)
[2017-05-28] MEDS: FLUTICASONE 50MCG/SPRAY NASAL 16GM EA NOSTRIL SCH (08:15)
[2017-05-28] MEDS: LISINOPRIL 2.5 MG TAB PO SCH (08:15)
[2017-05-28] MEDS: CARVEDILOL 3.125 MG TAB PO SCH ×2 (08:15→22:21)
[2017-05-28] MEDS: MAGNESIUM OXIDE 400 MG TAB PO SCH (08:16)
[2017-05-28] MEDS: LORATADINE 10 MG TAB PO SCH (08:16)
[2017-05-28] MEDS: FATTY ACIDS PO SCH ×2 (08:17→22:21)
[2017-05-28] MEDS: OMEGA PO SCH ×2 (08:17→22:21)
[2017-05-28] MEDS: ceFAZolin IN SWFI 2 GM/20 ML SYRINGE IVP SCH ×3 (08:24→23:57)
--- NOTE | 2017-05-28 09:06 | CONS ---
CONSULTATION DATE OF SERVICE: 05/27/2017. REASON FOR CONSULTATION: Left foot and leg cellulitis and sepsis. Antibiotic recommendations. HISTORY OF PRESENT ILLNESS: The patient is a 51-year-old male with past medical history significant for diabetes mellitus. The patient apparently started using some new shoes over the last few weeks. The patient did have underlying diabetic neuropathy, no significant Sensation in foot area. The patient noticed to have some swelling and redness of the left foot with at times some dull aching pain that was not improving with symptoms going on for the last 2 weeks pain was mild to 3 out of 10 and no radiation. Hence he presented to the [facility]. In the [facility], the patient was noted to be septic with hypotension, elevated white count, elevated lactic acid. The patient has been given IV fluids and subsequent transfer to the [facility] for further evaluation. The patient did have a left lower extremity Doppler that was negative for DVT and showed inguinal lymphadenopathy. ID was consulted for further recommendation regarding antibiotic therapy. REVIEW OF SYSTEMS: Constitutional: Positive for weakness and some chills. Eyes no complaint. ENT no complaint. Respiratory no complaint. Cardiovascular no complaint. Genitourinary no complaint. Gastrointestinal: No complaint. Musculoskeletal as per HPI. Integumentary as per HPI. PSYCHOLOGICAL: No complaint. Endocrine no complaint. Neurologic no complaint. PAST MEDICAL HISTORY: Significant for diabetes mellitus type 2, gastroesophageal reflux disease, hypertension, hyperlipidemia, AICD. PAST SURGICAL HISTORY: ICD placement, cholecystectomy, and coronary bypass grafting. SOCIAL HISTORY: Remote history of smoking. No drinking or drug use. FAMILY HISTORY: No pertinent findings noticed. ALLERGIES: No known drug allergies. MEDICATION: Medications include the patient is currently on: Tylenol, Russell, Xanax, Eliquis , Abilify, Lipitor, Coreg, cefazolin 2 g q.8h, Cymbalta, vitamin D2, Flonase, Lopid, Dilaudid, NovoLog Levemir, Zestril, Claritin, Mag oxide, Narcan, niacin, Nitrostat, Protonix, and Restoril. EXAMINATION: Blood pressure is 106/61 with a pulse of 97, temperature of 98.2 he is 99% on room air. General description is a middle aged male up in the bed, in no distress. No tachypnea or accessory muscle of respiration use. HEENT: Shows slight pallor. No scleral icterus. Oral mucosa membranes dry. No pharyngeal erythema or thrush Neck trachea central. No thyromegaly. Lungs unlabored breathing. Clear to auscultation anteriorly. No wheeze or crackles. Heart S1, S2. Regular rate and rhythm. No murmur ABDOMEN: Soft, no tenderness. No guarding or rigidity. No organomegaly Extremities left leg and foot swelling and redness. The patient did have a necrotic area to the left lateral border at the base of the 5th toe. Some drainage was noticed that was cultured Neurological the patient is awake, alert, oriented x3. Mood and affect normal. Speech is normal LABS: Hemoglobin is 11.4, white count of 11, admission white count was 12.1. BUN of 25, creatinine 0.96. Urine has been negative. Doppler study as mentioned above. DIAGNOSTIC IMPRESSION AND PLAN: Patient with left lower extremity cellulitis with left diabetic foot infection in a patient who did have a slight necrotic patch in the base of the 5th toe with a wound likely from a new shoes with trauma from the same and likely from a gram- positive skin jeanine such as Staphylococcus aureus, however polymicrobial infection not excluded as the patient is diabetic, With uncontrolled diabetes likely at risk factor in a patient also have a history of coronary artery disease, with concern for possible peripheral arterial disease, that will Complicate the healing process PLAN: 1. I recommend vascular surgery evaluation for possible debridement of the left foot lateral border wound and deep cultures. 2. Patient will be given cefazolin 2 g q.8 hours. 3. Ortega the area of redness. 4. Dilip wrap from just above to below the knee. 5. Depending upon his clinical response as well as cultures to further adjust the medication further if needed. Thank you for this consultation. Will follow the patient along with you. MMODL / IJN: [id number] / MARY
[2017-05-28 11:15] LABS: Glucose,Whole Blood 220 mg/dL (75-99)
[2017-05-28] MEDS ORDERED: VANCOMYCIN IV PER PHARMACY 1 EACH MISC MISCELLANE PRN (16:07)
[2017-05-28] MEDS: HYDROcodone/APAP 5-325MG 1 EACH TAB PO PRN (16:17)
[2017-05-28] MEDS ORDERED: VANCOMYCIN 2,000 MG in SODIUM CHLORIDE 0.9% 500 ML IVPB ONE (17:00)
[2017-05-28 17:14] LABS: Glucose,Whole Blood 91 mg/dL (75-99)
[2017-05-28 20:26] LABS: Glucose,Whole Blood 97 mg/dL (75-99)
--- NOTE | 2017-05-28 21:51 | PN ---
PROGRESS NOTE DATE OF SERVICE: 05/28/2017. INTERVAL HISTORY: This 51-year-old gentleman who was admitted with acute cellulitis bilateral legs and multiple ulcerations also. No chest pain. No palpitations. No fever. The culture showed presumptive Staph aureus and as well as strep agalactiae. The patient has also been started on vancomycin, also. EXAM: Alert and oriented x3. Pulse is 99. Blood pressure 111/64. Respirations 18. Temperature 100 degrees, pulse ox 98% on room air. HEENT: Conjunctivae normal. Neck: No jugular venous distention. Cardiovascular: S1, S2 muffled. Respiratory: Breath sounds diminished in the bases. A few scattered rhonchi and crackles. Abdomen is soft, nontender. No mass palpable. Legs: Left leg swelling and erythema present. Nervous system: No focal deficits. LABS: WBC 9.9, hemoglobin 11, sodium 133. ASSESSMENT: 1. Acute cellulitis of bilateral legs, left more than the right with multiple ulcerations with sepsis present on admission. 2. Presumptive Staph and strep agalactiae present on cultures. 3. Increased WBC. 4. Anemia of chronic disease. 5. Hypoglycemia, diabetes type 2 uncontrolled. 6. Thrombocytopenia. 7. Hyponatremia. 8. Hypokalemia. 9. History of coronary artery disease, coronary artery bypass grafting, stent. 10.History of congestive heart failure with chronic systolic dysfunction, EF 20%. 11.History of diabetes type 2. 12.Hypertension. 13.Hyperlipidemia. 14.History of gastroesophageal reflux disease. 15.History of diabetic nephropathy. 16.History of AICD. 17.History of depression. 18.Remote history of nicotine dependence. 19.FULL CODE. RECOMMENDATIONS AND DISCUSSION: Recommend to continue current medications, continue to monitor. Symptomatic treatment. Otherwise at this time, we will monitor the patient closely. Vascular surgery opinion. I would also obtain a bone scan also to rule out the possibility of any new osteomyelitis. Guarded prognosis. Further recommendations to follow. MMODL / IJN: [id number] /
[2017-05-28 22:06] LABS: Glucose,Whole Blood 117 mg/dL (75-99)
[2017-05-28] MEDS: INSULIN DETEMIR 100 UNIT/ML 10 ML VIAL SQ SCH (22:21)
[2017-05-28] MEDS: ATORVASTATIN 80 MG TAB PO SCH (22:21)
[2017-05-28] MEDS: NIACIN TR 250 MG CAPSULE.ER PO SCH (22:21)
[2017-05-28] MEDS: VANCOMYCIN 1,750 MG in SODIUM CHLORIDE 0.9% 250 ML IVPB SCH (23:57)
[2017-05-29] MEDS: SODIUM CHLORIDE 0.9% 1,000 ML IV SCH (07:18)
[2017-05-29 07:41] LABS: Glucose,Whole Blood 75 mg/dL (75-99)
[2017-05-29] MEDS: INSULIN ASPART 100 UNIT/ML 1 ML 10 ML VIAL SQ SCH ×7 (07:41→21:36)
--- NOTE | 2017-05-29 08:01 | PN ---
PROGRESS NOTE DATE OF SERVICE: 05/28/17 REASON FOR FOLLOW UP: Left diabetic foot infection with cellulitis. INTERVAL HISTORY: The patient did have a low-grade fever this afternoon. The patient denies having any chest pain or shortness of breath, cough. No abdominal pain, left leg swelling and redness. No worsening. Denies any worsening pain and no diarrhea. EXAMINATION: Blood pressure 111/54 with a pulse of 99, temperature of 100. He is 98% on room air. General description is a middle-aged male lying in bed in no distress. Respiratory system unlabored breathing. Clear to auscultation anteriorly. Heart S1, S2. Regular rate and rhythm. Abdomen soft. No tenderness. Left foot lateral border did have a necrotic area with some surrounding redness. No drainage was noticed today. LABS: Hemoglobin is 11, white count 9.9 with a BUN of 22, creatinine 0.89. Culture showing presumptive Staph aureus and Streptococcus agalactiae. DIAGNOSTIC IMPRESSION AND PLAN: Patient with a left diabetic foot infection with secondary cellulitis. Wound culture with Staph aureus and group B Strep. Vancomycin will be added to cover for possible MRSA and continue cefazolin. Await the vascular surgery evaluation and possible treatment of the infected hip. Continue supportive care. MMODL / IJN: [id number] /
--- NOTE | 2017-05-29 08:13 | CONS ---
DATE OF CONSULTATION: 05/28/2017 This is a 51-year-old gentleman who has been admitted to [facility] with history off infection left foot involving base of the 5th toe for the past few days. The patient has been admitted with IV antibiotic and I was consulted for surgical evaluation. SURGICAL HISTORY: Patient had a history of ICD placement, cholecystectomy and coronary artery bypass graft and greater saphenous vein has been used from the left leg. PHYSICAL EXAMINATION: NECK: Supple. CHEST: Clear. ABDOMEN: Soft. Femorals are palpable. Posterior tibial, dorsalis pedis by the Doppler. Patient has a cellulitis of the left foot and also the base of the 5th toe. There is a necrotic skin on the lateral aspect of the foot and some redness noted on the left foot fifth toe. There is some fluctuation also noted, tenderness. The patient is on IV antibiotics. Most likely patient will need debridement and possible 5th 5th toe amputation if it does not improve by antibiotic therapy. We will follow with you and we will arrange. Thank very much for this consultation. RODOLFOL / IJN: [id number] / MARY
[2017-05-29 08:17] LABS: Anion Gap 9 mmol/L; Blood Urea Nitrogen 19 mg/dL (9-20); Calcium 8.5 mg/dL (8.4-10.2); Carbon Dioxide 23 mmol/L (22-30); Chloride 105 mmol/L (98-107); Glucose 74 mg/dL (74-99); Potassium 4.6 mmol/L (3.5-5.1); Sodium 137 mmol/L (137-145)
[2017-05-29] MEDS: ceFAZolin IN SWFI 2 GM/20 ML SYRINGE IVP SCH ×2 (08:37→16:11)
[2017-05-29] MEDS: VANCOMYCIN 1,750 MG in SODIUM CHLORIDE 0.9% 250 ML IVPB SCH ×2 (08:37→16:11)
[2017-05-29] MEDS: HYDROcodone/APAP 7.5-325MG 1 EACH TAB PO PRN ×2 (08:45→16:08)
[2017-05-29 09:48] LABS: Glucose,Whole Blood 280 mg/dL (75-99)
[2017-05-29] MEDS: GEMFIBROZIL 600 MG TAB PO SCH ×2 (09:56→17:50)
[2017-05-29] MEDS: PANTOPRAZOLE 40 MG TABLET PO SCH (09:57)
[2017-05-29] MEDS: APIXABAN 5 MG TAB PO SCH ×3 (09:57→18:27)
[2017-05-29] MEDS: CARVEDILOL 3.125 MG TAB PO SCH ×2 (09:58→21:36)
[2017-05-29] MEDS: LORATADINE 10 MG TAB PO SCH (09:58)
[2017-05-29] MEDS: LISINOPRIL 2.5 MG TAB PO SCH (09:58)
[2017-05-29] MEDS: MAGNESIUM OXIDE 400 MG TAB PO SCH (09:58)
[2017-05-29] MEDS: FLUTICASONE 50MCG/SPRAY NASAL 16GM EA NOSTRIL SCH (09:58)
[2017-05-29] MEDS: DULoxetine HCL 60 MG CAPSULE.DR PO SCH (09:58)
[2017-05-29] MEDS: ARIPiprazole 5 MG TAB PO SCH (09:58)
[2017-05-29 10:09] LABS: Basophils % (A) 0 %; Eosinophils # (A) 0.1 k/uL (0-0.7); Eosinophils % (A) 1 %; HCT 33.8 % (39.0-53.0); HGB 11.6 gm/dL (13.0-17.5); Lymphocytes % (A) 10 %; MCH 30.2 pg (25.0-35.0); MCHC 34.2 g/dL (31.0-37.0); MCV 88.3 fL (80.0-100.0); Mean Platelet Volume 11.2; Monocytes # (A) 0.8 k/uL (0-1.0); Monocytes % (A) 7 %; Neutrophils # (A) 8.3 k/uL (1.3-7.7); Neutrophils % (A) 81 %; Platelet Count 112 k/uL (150-450); RBC 3.83 m/uL (4.30-5.90); RDW 13.1 % (11.5-15.5); WBC 10.3 k/uL (3.8-10.6)
[2017-05-29] MEDS: OMEGA PO SCH ×2 (10:49→21:37)
[2017-05-29] MEDS: FATTY ACIDS PO SCH ×2 (10:49→21:37)
[2017-05-29 11:33] LABS: Glucose,Whole Blood 254 mg/dL (75-99)
[2017-05-29] MEDS ORDERED: LIDOCAINE 1% (PF) 10MG/ML VIAL SQ STA (13:18)
--- NOTE | 2017-05-29 14:36 | NM ---
EXAMINATION TYPE: NM bone 3 phase DATE OF EXAM: 05/29/2017 COMPARISON: NONE HISTORY: Nonhealing wound left foot Triple phase bone scintigraphy was performed following the injection of29.5 mCi Tc 99m MDP. Immediat e images and 6 hours post injection images acquired. FINDINGS: There is increased perfusion to the left ankle and foot. There is increased soft tissue uptake compatible cellulitis within the left foot. Delayed images demonstrate symmetric uptake about the knees compatible with arthritic changes. There is increased uptake seen within the tarsal region of both bones and within the left fifth metacarpal. Abnormal uptake involving the phalanges likely is post arthritic. IMPRESSION: Findings compatible with cellulitis involving the left foot. If there is concern for osteomyelitis re lated to the fifth digit and the findings would be compatible otherwise consider trauma. X-ray correlation recommended.
[2017-05-29] MEDS ORDERED: HYDROmorphone 0.5 MG/0.5 ML SYRINGE IVP PRN (16:56)
[2017-05-29 17:26] LABS: Glucose,Whole Blood 133 mg/dL (75-99)
[2017-05-29] MEDS: LACTATED RINGERS 1,000 ML IV SCH (17:43)
--- NOTE | 2017-05-29 19:40 | PN ---
PROGRESS NOTE DATE OF SERVICE: 05/29/2017. INTERVAL HISTORY: This 51-year-old gentleman who was admitted with acute cellulitis of the bilateral legs, left more than the right, also had a significant lesion also on the left toe. The bone scan was noted which showed cellulitis involving the left foot. There is also concern of osteomyelitis of 5th digit. No chest pain. No palpitations. No fever. PHYSICAL EXAM: Alert and oriented x2. Pulse is 95, blood pressure 115/61, respirations 18, temperature 98.4, pulse ox 98% room air. HEENT: Conjunctivae normal. NECK: No jugular venous distention. CARDIOVASCULAR: S1, S2 muffled. RESPIRATORY: Breath sounds diminished in the bases. No scattered rhonchi. No crackles. ABDOMEN: Soft, nontender. No mass palpable. LEGS: Left leg ulceration and significant discoloration also present in the left little toe. Otherwise, evidence of cellulitis on the left montes area present. NERVOUS SYSTEM: No focal deficits. LABS: WBC 10.1, hemoglobin is 11.6 and the cultures are Staph aureus and Strep agalactiae. Staph aureus is MSSA. ASSESSMENT: 1. Acute cellulitis of bilateral legs, left more than the right, with multiple ulcerations with sepsis present on admission. 2. Methicillin-sensitive Staphylococcus aureus as well as Streptococcus agalactiae present on cultures. 3. Increased WBC. 4. Anemia of chronic disease. 5. Hypoglycemia with diabetes mellitus type 2, uncontrolled. 6. Thrombocytopenia. 7. Hyponatremia. 8. Hypokalemia. 9. History of coronary artery disease, coronary artery bypass graft, stent. 10.History of congestive heart failure with chronic systolic dysfunction, ejection fraction 20%. 11.History of diabetes mellitus type 2. 12.Hypertension. 13.Hyperlipidemia. 14.History of gastroesophageal reflux disease. 15.History of diabetic nephropathy. 16.History automatic implantable cardioverter-defibrillator. 17.History of depression. 18.Remote history of nicotine dependence. 19.FULL CODE. RECOMMENDATIONS AND DISCUSSION: Continue current medications, continue with monitoring and symptomatic treatment. Otherwise, discussed with Dr. Del Cid possible amputation of the little toe. Otherwise continue the antibiotics. Closely follow with Infectious Disease. Prognosis guarded. Further recommendations to follow. MMODL / IJN: [id number] /
[2017-05-29 20:35] LABS: Glucose,Whole Blood 209 mg/dL (75-99)
[2017-05-29] MEDS: ATORVASTATIN 80 MG TAB PO SCH (21:36)
[2017-05-29] MEDS: INSULIN DETEMIR 100 UNIT/ML 10 ML VIAL SQ SCH (21:36)
[2017-05-29] MEDS: NIACIN TR 250 MG CAPSULE.ER PO SCH (21:36)
--- NOTE | 2017-05-29 22:37 | PN ---
PROGRESS NOTE DATE OF SERVICE: 05/29/2017 REASON FOR FOLLOWUP: Left diabetic foot infection with cellulitis. INTERVAL HISTORY: The patient is afebrile, has been breathing comfortably. Denies having any chest pain. No cough. No abdominal pain or any worsening pain in her left leg area. PHYSICAL EXAMINATION: Blood pressure is 115/61 with a pulse of 95, temperature 98.4. He is 98% on room air. General description is a middle-aged male lying in bed in no distress. RESPIRATORY SYSTEM: Unlabored breathing. Clear to auscultation anteriorly. HEART: S1, S2. Regular rate and rhythm. ABDOMEN: Soft. No tenderness. Left foot lateral border necrotic patch with the redness slightly improved. LABS: White count down to 10.3, BUN of 19, creatinine 0.77. Wound culture has been finalized with MSSA and group B strep. DIAGNOSTIC IMPRESSION AND PLAN: Patient with a left diabetic foot infection with a black patch on the left lateral foot, likely from trauma from a new shoe, culture now showing MSSA and group B strep. Vancomycin will be discontinued. Keep the patient on cefazolin. Patient will likely need debridement of that area and deep culture. Will discuss with vascular surgeon Dr. Del Cid. MMODL / IJN: [id number] / MARY
[2017-05-30] MEDS ORDERED: HYDROcodone/APAP 7.5-325MG 1 EACH TAB ONE
[2017-05-30] MEDS ORDERED: VANCOMYCIN TROUGH DUE 1 EACH MISC MISCELLANE ONE (07:00)
[2017-05-30 07:03] LABS: Glucose,Whole Blood 130 mg/dL (75-99)
[2017-05-30] MEDS: SODIUM CHLORIDE 0.9% 1,000 ML IV SCH ×2 (07:09→21:58)
[2017-05-30] MEDS: ceFAZolin IN SWFI 2 GM/20 ML SYRINGE IVP SCH ×4 (07:10→23:44)
[2017-05-30] MEDS: GEMFIBROZIL 600 MG TAB PO SCH ×2 (08:13→17:39)
[2017-05-30] MEDS: CARVEDILOL 3.125 MG TAB PO SCH ×2 (08:14→20:45)
[2017-05-30] MEDS: DULoxetine HCL 60 MG CAPSULE.DR PO SCH (08:14)
[2017-05-30] MEDS: ARIPiprazole 5 MG TAB PO SCH (08:14)
[2017-05-30] MEDS: PANTOPRAZOLE 40 MG TABLET PO SCH (08:14)
[2017-05-30] MEDS: INSULIN ASPART 100 UNIT/ML 1 ML 10 ML VIAL SQ SCH ×7 (08:14→20:44)
[2017-05-30] MEDS: LORATADINE 10 MG TAB PO SCH (08:15)
[2017-05-30] MEDS: FLUTICASONE 50MCG/SPRAY NASAL 16GM EA NOSTRIL SCH (08:15)
[2017-05-30] MEDS: LISINOPRIL 2.5 MG TAB PO SCH (08:15)
[2017-05-30] MEDS: MAGNESIUM OXIDE 400 MG TAB PO SCH (08:15)
[2017-05-30] MEDS: HYDROcodone/APAP 7.5-325MG 1 EACH TAB PO PRN ×2 (08:20→20:44)
[2017-05-30 08:53] LABS: Anion Gap 9 mmol/L; Blood Urea Nitrogen 17 mg/dL (9-20); Calcium 8.5 mg/dL (8.4-10.2); Carbon Dioxide 28 mmol/L (22-30); Chloride 103 mmol/L (98-107); Glucose 128 mg/dL (74-99); Potassium 4.6 mmol/L (3.5-5.1); Sodium 140 mmol/L (137-145)
[2017-05-30 08:59] LABS: Basophils % (A) 0 %; Eosinophils # (A) 0.1 k/uL (0-0.7); Eosinophils % (A) 1 %; HCT 35.3 % (39.0-53.0); Lymphocytes # (A) 1.1 k/uL (1.0-4.8); Lymphocytes % (A) 11 %; MCH 29.5 pg (25.0-35.0); MCHC 31.2 g/dL (31.0-37.0); Monocytes # (A) 0.6 k/uL (0-1.0); Monocytes % (A) 6 %; Neutrophils # (A) 8.4 k/uL (1.3-7.7); Neutrophils % (A) 81 %; RBC 3.74 m/uL (4.30-5.90); RDW 13.3 % (11.5-15.5); WBC 10.4 k/uL (3.8-10.6)
[2017-05-30 09:13] LABS: Platelet Count 190 k/uL (150-450)
[2017-05-30 09:14] LABS: MCV 94.4 fL (80.0-100.0)
[2017-05-30] MEDS: OMEGA PO SCH ×2 (09:22→20:49)
[2017-05-30] MEDS: FATTY ACIDS PO SCH ×2 (09:22→20:49)
--- NOTE | 2017-05-30 11:20 | PN ---
PROGRESS NOTE This is a 51-year-old gentleman with history of diabetes. The patient came with cellulitis and discoloration of the left foot fifth toe and some scab formation noted on the base of the fifth toe. The patient is on IV antibiotic and the patient was growing Staph and also they have been using Silvadene cream for cellulitis of the dorsal aspect of the foot and left lower extremity. The patient also has some scab formation noted on the right foot fifth toe and big toe, but no sign of infection. The posterior tibial and dorsalis pedis by Doppler. No rest pain. No ischemic changes. The patient does have some ischemic changes noted on the fifth toe, but on the lateral aspect, the mid aspect, the patient had good color. At this point, no discharge or redness noted of the toe but there is some cellulitis noted on the dorsal aspect of the lower extremity and foot. We will watch for another 48 hours to continue with IV antibiotic and local care. So toe is not demarcating for to be amputated. I have discussed with infectious disease. Will continue with IV antibiotic and re-evaluate if patient needs left fifth toe amputation. MMODL / IJN: [id number] /
[2017-05-30 11:30] LABS: Glucose,Whole Blood 206 mg/dL (75-99)
[2017-05-30] MEDS: CLINDAMYCIN 900 MG in DEXTROSE 5% IN WATER 50 ML IVPB SCH ×4 (16:12→23:39)
[2017-05-30 17:17] LABS: Glucose,Whole Blood 90 mg/dL (75-99)
[2017-05-30] MEDS: LACTATED RINGERS 1,000 ML IV SCH (17:19)
--- NOTE | 2017-05-30 17:40 | PN ---
PROGRESS NOTE DATE OF SERVICE: 05/30/2017 REASON FOR FOLLOWUP: Left foot wound and cellulitis. INTERVAL HISTORY: The patient is afebrile, has been breathing comfortably. Denies significant chest pain. No cough. No abdominal pain or any worsening pain in the left leg area. PHYSICAL EXAMINATION: Blood pressure 140/77 with a pulse of 93, temperature of 98. He is 95% on room air. General description is a middle-aged male lying in bed in no distress. RESPIRATORY SYSTEM: Unlabored breathing. Clear to auscultation anteriorly. HEART: S1, S2. Regular rate and rhythm. ABDOMEN: Soft. No tenderness. Left foot lateral border still has that necrotic area and the toe looks slightly bluish, discolored as well. Redness has slightly decreased. Swelling persists, though. LABS: Hemoglobin is 11, white count 10.4, BUN of 17, creatinine 0.81. DIAGNOSTIC IMPRESSION AND PLAN: Patient with a left foot lateral border injury, likely pressure-related with necrotic spot with secondary cellulitis. Culture has been positive for group B strep and Staph aureus. Will keep the patient on cefazolin. Clindamycin will be added in view of the persistent cellulitis. Vascular Surgery is following the patient and the timing of the surgical debridement is per them. Continue supportive care. MMODL / IJN: [id number] /
[2017-05-30 20:33] LABS: Glucose,Whole Blood 149 mg/dL (75-99)
[2017-05-30] MEDS: INSULIN DETEMIR 100 UNIT/ML 10 ML VIAL SQ SCH (20:44)
[2017-05-30] MEDS: APIXABAN 5 MG TAB PO SCH (20:45)
[2017-05-30] MEDS: NIACIN TR 250 MG CAPSULE.ER PO SCH (20:45)
[2017-05-30] MEDS: ATORVASTATIN 80 MG TAB PO SCH (20:45)
--- NOTE | 2017-05-30 22:08 | PN ---
PROGRESS NOTE DATE OF SERVICE: 05/30/2017. INTERVAL HISTORY: This 51-year-old gentleman who was admitted with acute cellulitis of bilateral legs, left more than the right with multiple ulcerations schedule to have surgery by Dr. Del Cid. A bone scan showed possible osteomyelitis. IV antibiotics have been continued. No chest pain. No palpitation. EXAM: Alert and oriented times three. Pulse 85, blood pressure 108/60 respirations 16, temperature 98.4, pulse ox 100% on room air. HEENT: Conjunctivae normal. Neck: No jugular venous distention. Cardiovascular: S1, S2 muffled. Respirations: Breath sounds diminished in the bases. No rhonchi. No crackles. Abdomen soft nontender. Legs: Left leg cellulitis and . Central nervous system: No focal deficits. LABS: WBC 10.5, hemoglobin is 11. ASSESSMENT: 1. Acute cellulitis of bilateral legs, left more than the right with multiple ulcerations, sepsis present on admission. 2. Methicillin-sensitive Staphylococcus aureus as well as streptogalactaie present on cultures. 3. Increased WBC. 4. Anemia of chronic disease. 5. Hypoglycemia and diabetes type 2 uncontrolled. 6. Thrombocytopenia. 7. Hyponatremia. 8. Hypokalemia. 9. History of coronary artery disease, coronary artery bypass grafting, stent. 10.History of congestive heart failure with chronic systolic dysfunction, ejection fraction 20%. 11.History of diabetes type 2. 12.Hypertension. 13.Hyperlipidemia. 14.Gastroesophageal reflux disease. 15.History of diabetic neuropathy. 16.History of AICD. 17.History of depression. 18.Remote history of nicotine dependence. 19.FULL CODE. RECOMMENDATIONS AND DISCUSSION: Recommend to continue current medications, management and symptomatic treatment. Continue IV antibiotics. Closely follow with Infectious Disease and Vascular Surgery. Prognosis is extremely guarded because of multiple complex medical issues. Further recommendations to follow. MMODL / IJN: [id number] / MTDD
[2017-05-31 07:34] LABS: Glucose,Whole Blood 73 mg/dL (75-99)
[2017-05-31] MEDS: ceFAZolin IN SWFI 2 GM/20 ML SYRINGE IVP SCH ×2 (07:46→16:04)
[2017-05-31] MEDS: INSULIN ASPART 100 UNIT/ML 1 ML 10 ML VIAL SQ SCH ×7 (07:46→21:04)
[2017-05-31] MEDS: CLINDAMYCIN 900 MG in DEXTROSE 5% IN WATER 50 ML IVPB SCH ×4 (07:47→16:04)
[2017-05-31] MEDS: HYDROcodone/APAP 7.5-325MG 1 EACH TAB PO PRN ×2 (07:48→19:03)
[2017-05-31] MEDS: FLUTICASONE 50MCG/SPRAY NASAL 16GM EA NOSTRIL SCH (08:44)
[2017-05-31] MEDS: APIXABAN 5 MG TAB PO SCH ×2 (08:44→21:03)
[2017-05-31] MEDS: ARIPiprazole 5 MG TAB PO SCH (08:44)
[2017-05-31] MEDS: GEMFIBROZIL 600 MG TAB PO SCH ×2 (08:44→18:12)
[2017-05-31] MEDS: DULoxetine HCL 60 MG CAPSULE.DR PO SCH (08:44)
[2017-05-31] MEDS: PANTOPRAZOLE 40 MG TABLET PO SCH (08:44)
[2017-05-31] MEDS: CARVEDILOL 3.125 MG TAB PO SCH ×2 (08:44→21:03)
[2017-05-31] MEDS: LISINOPRIL 2.5 MG TAB PO SCH (08:45)
[2017-05-31] MEDS: LORATADINE 10 MG TAB PO SCH (08:45)
[2017-05-31] MEDS: MAGNESIUM OXIDE 400 MG TAB PO SCH (08:45)
[2017-05-31] MEDS: FATTY ACIDS PO SCH ×2 (08:46→22:47)
[2017-05-31] MEDS: OMEGA PO SCH ×2 (08:46→22:47)
--- NOTE | 2017-05-31 09:03 | PN ---
PROGRESS NOTE This is a 51-year-old, diabetic male, who came with cellulitis of the left lower extremity and dorsal aspect of the foot with some discoloration of the left foot fifth toe with some scab formation noted. Patient has been treated with IV antibiotic and local wound care. Medial aspect of the 5th toe has good color but lateral aspect of the foot has some skin changes. PLAN: We will continue with IV antibiotic and when there is demarcation of the 5th toe we proceed with possible amputation. Cellulitis is getting some much better. We will make decision pretty soon when this demarcation of the 5th toe was seen. MMODL / IJN: [id number] /
[2017-05-31 10:33] VITALS: BMI 35.4
[2017-05-31 10:46] LABS: Glucose,Whole Blood 142 mg/dL (75-99)
[2017-05-31 12:06] LABS: Glucose,Whole Blood 122 mg/dL (75-99)
--- NOTE | 2017-05-31 17:06 | PN ---
PROGRESS NOTE DATE OF SERVICE: 05/31/17 REASON FOR FOLLOWUP: Left foot wound with secondary cellulitis MSSA and Group B Strep. INTERVAL HISTORY: The patient is afebrile. He is currently breathing comfortably. Denies any chest pain or cough. No abdominal pain or any worsening pain in the left foot area. PHYSICAL EXAMINATION: Blood pressure is 124/60 with a pulse of 85, temperature of 98.6. He is 95% on room air. General description is a middle aged male up in the room in no distress. Respiratory system: Unlabored breathing, clear to auscultation anteriorly. Heart S1, S2 regular rate and rhythm. Abdomen soft with no tenderness. Left foot lateral border with some necrotic black area with some surrounding redness. No drainage. LABS: White count of 10.4, sedimentation rate was 54, BUN of 17, creatinine 0.81. DIAGNOSTIC IMPRESSION AND PLAN: Patient with left foot wound, traumatic with secondary cellulitis. Culture positive for group B strep and MSSA. Vascular Surgery is following the patient and timing of the debridement of the wound. He will continue with cefazolin and Clinda and in view of extensive infection, may benefit from PICC line and outpatient IV antibiotic therapy. Also discussed in detail with the nurse practitioner for the primary team who is working on the discharge. Continue supportive care. MMODL / IJN: [id number] /
[2017-05-31 17:45] LABS: Glucose,Whole Blood 79 mg/dL (75-99)
--- NOTE | 2017-05-31 18:12 | PN ---
PROGRESS NOTE DATE OF SERVICE: 05/31/17 INTERVAL HISTORY: This 51-year-old gentleman who was admitted with acute cellulitis of bilateral legs, left more than right, is being closely monitored. Dr. Del Cid is planning for a demarcation line to appear. No chest pain. No palpitations. No fever. EXAM: Alert and oriented times three. Pulse 85, blood pressure 124/60, respiration 21, temperature 98.6, pulse ox 94% on room air. HEENT: Conjunctivae normal. Neck: No jugular venous distention. Cardiovascular: S1, S2 muffled. Respiratory: Breath sounds diminished in the bases. No rhonchi and no crackles. Abdomen is soft, nontender. Legs: Leg cellulitis and ulceration present. Nervous system: No focal deficits. LABS: Accu-Cheks 140-122. Hemoglobin is 11. Other labs are noted. The culture is Staph aureus and strep agalactiae emesis. ASSESSMENT: 1. Acute cellulitis of bilateral legs, left more than the right with multiple ulcerations with sepsis present on admission. 2. MSSA as well as Strep agalactiae present on cultures. 3. Increased WBC. 4. Anemia of chronic disease. 5. Hypoglycemia with diabetes type 2 uncontrolled. 6. Thrombocytopenia. 7. Hyponatremia. 8. Hypokalemia. 9. History of coronary artery disease, coronary artery bypass grafting stent. 10.History of congestive heart failure with chronic systolic dysfunction, ejection fraction 20%. 11.History of diabetes type 2. 12.Hypertension. 13.Hyperlipidemia. 14.Gastroesophageal reflux disease. 15.History of diabetic neuropathy. 16.History AICD. 17.History of depression. 18.Remote history of nicotine dependence. 19.FULL CODE. RECOMMENDATIONS AND DISCUSSION: Recommend to continue current medications, management and symptomatic treatment. Otherwise continue the antibiotics. Closely monitor. Guarded prognosis because of multiple complex medical issues. Further recommendations to follow. MMODL / IJN: [id number] / MARY
[2017-05-31] MEDS: LACTATED RINGERS 1,000 ML IV SCH (19:25)
[2017-05-31 20:00] LABS: Glucose,Whole Blood 131 mg/dL (75-99)
[2017-05-31] MEDS: ATORVASTATIN 80 MG TAB PO SCH (21:03)
[2017-05-31] MEDS: SODIUM CHLORIDE 0.9% 1,000 ML IV SCH (21:03)
[2017-05-31] MEDS: NIACIN TR 250 MG CAPSULE.ER PO SCH (21:03)
[2017-05-31] MEDS: INSULIN DETEMIR 100 UNIT/ML 10 ML VIAL SQ SCH (21:04)
[2017-06-01] MEDS: ceFAZolin IN SWFI 2 GM/20 ML SYRINGE IVP SCH ×3 (00:17→17:14)
[2017-06-01] MEDS: CLINDAMYCIN 900 MG in DEXTROSE 5% IN WATER 50 ML IVPB SCH ×6 (00:17→17:13)
[2017-06-01] MEDS: HYDROcodone/APAP 7.5-325MG 1 EACH TAB PO PRN ×2 (04:42→12:46)
[2017-06-01 07:02] LABS: Glucose,Whole Blood 93 mg/dL (75-99)
[2017-06-01] MEDS: INSULIN ASPART 100 UNIT/ML 1 ML 10 ML VIAL SQ SCH ×6 (07:05→18:07)
[2017-06-01] MEDS: ARIPiprazole 5 MG TAB PO SCH (08:06)
[2017-06-01] MEDS: CARVEDILOL 3.125 MG TAB PO SCH (08:06)
[2017-06-01] MEDS: APIXABAN 5 MG TAB PO SCH (08:06)
[2017-06-01] MEDS: PANTOPRAZOLE 40 MG TABLET PO SCH (08:06)
[2017-06-01] MEDS: GEMFIBROZIL 600 MG TAB PO SCH ×2 (08:06→18:07)
[2017-06-01] MEDS: DULoxetine HCL 60 MG CAPSULE.DR PO SCH (08:06)
[2017-06-01] MEDS: LISINOPRIL 2.5 MG TAB PO SCH (08:06)
[2017-06-01] MEDS: MAGNESIUM OXIDE 400 MG TAB PO SCH (08:07)
[2017-06-01] MEDS: FLUTICASONE 50MCG/SPRAY NASAL 16GM EA NOSTRIL SCH (08:07)
[2017-06-01] MEDS: LORATADINE 10 MG TAB PO SCH (08:07)
[2017-06-01] MEDS: FATTY ACIDS PO SCH (08:12)
[2017-06-01] MEDS: OMEGA PO SCH (08:12)
[2017-06-01 09:39] VITALS: PULSE 82
[2017-06-01 11:47] LABS: Glucose,Whole Blood 142 mg/dL (75-99)
--- NOTE | 2017-06-01 15:16 | PN ---
PROGRESS NOTE DATE OF SERVICE: 06/01/2017 REASON FOR FOLLOWUP: Left diabetic foot infection. INTERVAL HISTORY: The patient is afebrile, has been breathing comfortably. The blister he has on the left foot lateral border has opened, drainage of some clear purulent material. The overall swelling and redness of the foot has improved. Denies having any chest pain or shortness of breath or cough. PHYSICAL EXAMINATION: His blood pressure is 117/56 with a pulse of 82, temperature of 98. He is 95% on room air. General description is a middle-aged male lying in bed, in no distress. RESPIRATORY SYSTEM: Unlabored breathing, clear to auscultation anteriorly. HEART: S1, S2. Regular rate and rhythm. ABDOMEN: Soft, no tenderness. Left foot and leg swelling and redness has improved. On the lateral border, the blister has opened up, leading to a good granulation tissue, no purulence was noted. LABS: Hemoglobin is 11, white count of 10.4. Wound culture with MSSA and streptococcal agalactiae. DIAGNOSTIC IMPRESSION AND PLAN: Patient with left diabetic foot infection with an infected blister, status post spontaneous rupture. Local wound care with Aquacel Silver dressing to be applied dry. The 5th toe still has slight discoloration and Vascular Surgery is evaluated the patient. Clinically doubt underlying osteomyelitis, BONE SCAN negative as well. Plan to finish therapy with oral Keflex 500 mg t.i.d. for another 10 days. Local wound care with Aquacel Silver and close outpatient followup. MMODL / IJN: [id number] / [id number]
[2017-06-01 16:34] VITALS: BP 118/76; RESP 16; TEMP 98.1
[2017-06-01 17:34] LABS: Glucose,Whole Blood 209 mg/dL (75-99)
--- NOTE | 2017-06-02 11:26 | DS ---
DISCHARGE SUMMARY DATE OF SERVICE: 06/01/2017 FINAL DIAGNOSES: 1. Acute cellulitis of bilateral legs, left more than right with multiple ulcerations and sepsis present on admission. 2. No cultures. 3. Increased WBC. 4. Anemia of chronic disease. 5. Hypoglycemia with diabetes type 2, uncontrolled. 6. Thrombocytopenia. 7. Hyponatremia. 8. Hypokalemia. 9. History of CAD, CABG, stent. DISCHARGE DISPOSITION: The patient is being discharged in stable condition with guarded prognosis. HISTORY OF PRESENT ILLNESS: Discharge cleared by Dr. Winn and as well as Dr. Del Cid. This 51-year-old gentleman admitted with infection diabetic foot cellulitis and multiple ulcerations treated symptomatically. Patient improved significantly. Dr. Winn and Dr. Del Cid saw the patient and recommended the patient be discharged and follow up in the outpatient setting. On exam, vital signs are stable. Cardiovascular: S1, S2. Abdomen is soft. Central nervous system: No focal deficits. LEGS: Leg ulceration present which is improving. DISCHARGE ADVICE AND MEDICATIONS: 1. Ventolin HFA 2 puffs q.i.d. p.r.n. 2. Eliquis 5 mg p.o. b.i.d. 3. Abilify 5 mg. 4. Lipitor 80 mg q.h.s. 5. Coreg 3.125 mg p.o. b.i.d. 6. Keflex 500 mg q.6h for 10 days. 7. Cymbalta 60 mg p.o. daily. 8. Vitamin D2 50,000 daily. 9. Flonase 1 spray daily. 10.Lopid 600 mg daily. 11.Hydrocodone acetaminophen. 12.NovoLog FlexPen 15 units a.c. t.i.d. 13.Lantus 70 units subcu q.h.s. 14.Zestril 2.5 mg p.o. daily. 15.Claritin 10 mg p.o. daily. 16.Magnesium oxide 400 mg. 17.Niacin ER 1000 mg q.h.s. 18.Nitro 0.2 mg p.r.n. 19.[place] 3 1 g p.o. b.i.d. 20.Protonix 40 mg daily. 21.Restoril 7.5/50 mg p.o. q.h.s. p.r.n. Once again, the patient being discharged in a stable condition with guarded prognosis. Follow up with primary physician, Dr. Hilaria Patel in the outpatient setting. Total time taken 35 minutes. DIAMANTE / LETTYN: [id number] / MTDD
== END 2017-06-01 19:17 | disposition home or self-care (01) | DRG 872 ==
LOC: 6SEL 21:34 → 5MS5E 05-27 16:12
PROVIDERS: ADMIT Hospitalist; ATTEND Hospitalist
DX: A41.9 Sepsis, unspecified organism (principal); D69.6 Thrombocytopenia, unspecified; E11.21 Type 2 diabetes mellitus with diabetic nephropathy; E11.40 Type 2 diabetes mellitus with diabetic neuropathy, unspecified; E11.622 Type 2 diabetes mellitus with other skin ulcer; E87.1 Hypo-osmolality and hyponatremia; I50.22 Chronic systolic (congestive) heart failure; L03.115 Cellulitis of right lower limb; L03.116 Cellulitis of left lower limb; L97.909 Non-pressure chronic ulcer of unspecified part of unspecified lower leg with unspecified severity; D63.8 Anemia in other chronic diseases classified elsewhere; E11.628 Type 2 diabetes mellitus with other skin complications; E11.649 Type 2 diabetes mellitus with hypoglycemia without coma; E78.5 Hyperlipidemia, unspecified; E87.6 Hypokalemia; F32.9 Major depressive disorder, single episode, unspecified; I11.0 Hypertensive heart disease with heart failure; I25.10 Atherosclerotic heart disease of native coronary artery without angina pectoris; I25.5 Ischemic cardiomyopathy; K21.9 Gastro-esophageal reflux disease without esophagitis; M71.20 Synovial cyst of popliteal space [Baker], unspecified knee; S91.302A Unspecified open wound, left foot, initial encounter; Z79.01 Long term (current) use of anticoagulants; Z79.4 Long term (current) use of insulin; Z79.899 Other long term (current) drug therapy; Z80.0 Family history of malignant neoplasm of digestive organs; Z87.891 Personal history of nicotine dependence; Z95.1 Presence of aortocoronary bypass graft; Z95.5 Presence of coronary angioplasty implant and graft; Z95.810 Presence of automatic (implantable) cardiac defibrillator; B95.1 Streptococcus, group B, as the cause of diseases classified elsewhere; B95.61 Methicillin susceptible Staphylococcus aureus infection as the cause of diseases classified elsewhere
CPT/HCPCS: 78315; 80048; 80053; 80202; 81003; 83036; 83605; 84132; 84484; 85025; 85652; 86140; 87040; 87070; 87075; 87077; 87186; 87205; 87324

== ENCOUNTER 2017-11-15 21:50 | Inpatient (IN) | payer MEDICARE, OTHER ==
[2017-11-16 00:42] VITALS: BMI 34.2
[2017-11-16 01:32] LABS: Glucose,Whole Blood 89 mg/dL (75-99)
[2017-11-16] MEDS ORDERED: NITROGLYCERIN SL TABS 0.4 MG TAB SUBLINGUAL PRN (01:37)
[2017-11-16] MEDS ORDERED: VANCOMYCIN IV PER PHARMACY 1 EACH MISC MISCELLANE PRN (01:45)
[2017-11-16] MEDS ORDERED: VANCOMYCIN 1,750 MG in SODIUM CHLORIDE 0.9% 500 ML IVPB ONE (03:00)
[2017-11-16] MEDS: LACTATED RINGERS 1,000 ML IV SCH ×3 (03:38→21:32)
[2017-11-16] MEDS: VANCOMYCIN 1,750 MG in SODIUM CHLORIDE 0.9% 500 ML IVPB SCH ×2 (06:02→17:54)
[2017-11-16] MEDS ORDERED: INSULIN ASPART 100 UNIT/ML 1 ML 10 ML VIAL SQ SCH (07:30)
[2017-11-16 07:39] LABS: Glucose,Whole Blood 199 mg/dL (75-99)
[2017-11-16] MEDS: FUROSEMIDE 40 MG TAB PO SCH ×2 (08:24→16:16)
[2017-11-16] MEDS: APIXABAN 5 MG TAB PO SCH ×2 (08:24→20:24)
[2017-11-16] MEDS: DULoxetine HCL 60 MG CAPSULE.DR PO SCH (08:25)
[2017-11-16] MEDS: LORATADINE 10 MG TAB PO SCH (08:25)
[2017-11-16] MEDS: PANTOPRAZOLE 40 MG TABLET PO SCH (08:25)
[2017-11-16] MEDS: MAGNESIUM OXIDE 400 MG TAB PO SCH (08:25)
[2017-11-16] MEDS: ARIPiprazole 5 MG TAB PO SCH (08:25)
[2017-11-16] MEDS: CARVEDILOL 3.125 MG TAB PO SCH ×2 (08:25→17:52)
[2017-11-16] MEDS: ASPIRIN 81 MG PO SCH (08:25)
[2017-11-16] MEDS: LISINOPRIL 2.5 MG TAB PO SCH (08:25)
[2017-11-16] MEDS: INSULIN ASPART 100 UNIT/ML 1 ML 10 ML VIAL SQ SCH ×4 (08:27→21:31)
[2017-11-16] MEDS: FLUTICASONE 50MCG/SPRAY NASAL 16GM EA NOSTRIL SCH (08:28)
[2017-11-16] MEDS ORDERED: FATTY ACIDS PO SCH (09:00)
[2017-11-16] MEDS ORDERED: OMEGA PO SCH (09:00)
[2017-11-16 09:14] LABS: Basophils % (A) 0 %; Eosinophils # (A) 0.2 k/uL (0-0.7); Eosinophils % (A) 3 %; HGB 11.4 gm/dL (13.0-17.5); Hypochromasia Slight; Lymphocytes # (A) 1.3 k/uL (1.0-4.8); Lymphocytes % (A) 24 %; MCH 26.8 pg (25.0-35.0); MCHC 31.7 g/dL (31.0-37.0); MCV 84.3 fL (80.0-100.0); Mean Platelet Volume 7.4; Monocytes # (A) 0.4 k/uL (0-1.0); Monocytes % (A) 7 %; Neutrophils # (A) 3.5 k/uL (1.3-7.7); Neutrophils % (A) 63 %; Platelet Count 145 k/uL (150-450); RBC 4.27 m/uL (4.30-5.90); RDW 15.4 % (11.5-15.5); WBC 5.6 k/uL (3.8-10.6)
[2017-11-16 09:27] LABS: Anion Gap 10 mmol/L; Blood Urea Nitrogen 24 mg/dL (9-20); Calcium 8.4 mg/dL (8.4-10.2); Carbon Dioxide 25 mmol/L (22-30); Chloride 105 mmol/L (98-107); Glucose 217 mg/dL (74-99); Sodium 140 mmol/L (137-145)
[2017-11-16 11:53] LABS: Glucose,Whole Blood 231 mg/dL (75-99)
[2017-11-16 16:57] LABS: Glucose,Whole Blood 184 mg/dL (75-99)
[2017-11-16] MEDS ORDERED: ASPIRIN 81 MG PO SCH (17:00)
[2017-11-16] MEDS ORDERED: ACETAMINOPHEN TAB 325 MG TAB PO PRN (17:01)
[2017-11-16] MEDS ORDERED: LACTULOSE 20 GM/30 ML CUP PO PRN (17:01)
[2017-11-16] MEDS ORDERED: MELATONIN 3 MG TABLET PO PRN (17:01)
[2017-11-16] MEDS ORDERED: CALCIUM CARBONATE 500 MG CHEWABLE PO PRN (17:01)
[2017-11-16] MEDS ORDERED: LORazepam 0.5 MG TAB PO PRN (17:01)
[2017-11-16] MEDS ORDERED: MAGNESIUM HYDROXIDE 2,400 MG/10 ML CUP PO PRN (17:01)
[2017-11-16] MEDS ORDERED: ONDANSETRON 4 MG/2 ML VIAL IVP PRN (17:01)
--- NOTE | 2017-11-16 17:52 | HP ---
HISTORY AND PHYSICAL DATE OF ADMISSION: 11/15/2017 DATE OF SERVICE: 11/16/2017 PRESENTING COMPLAINT: Redness, pain in the left lower extremity. HISTORY OF PRESENTING COMPLAINT: This is a 52-year-old patient who follows with Dr. Hilaria Patel. Chronic stable medical conditions include coronary artery disease, diabetes, GERD, hyperlipidemia, hypertension. Patient has had vascular surgery done on his lower extremity, including amputation of the 2 small toes on the left by Dr. Del Cid. Patient presents with increasing pain, swelling, redness of the left lower extremity coming on for 2 or 3 days. There was no fever or chills. The patient was admitted with acute cellulitis. Patient in the ER was started on vancomycin. Pain and redness actually started to improve. He was given IV fluids. The patient did tolerate some diet. Does feel tired and rundown. REVIEW OF SYSTEMS: CONSTITUTIONAL: Tired. HEENT: None. RESPIRATORY: None. CARDIOVASCULAR: None. GASTROINTESTINAL: Heartburn. GENITOURINARY: None. MUSCULOSKELETAL: As above. DERMATOLOGICAL: As above. LYMPHATICS: None. PSYCHIATRY: Depression, controlled. NEUROLOGICAL: Numbness and tingling in the feet. PAST MEDICAL HISTORY: 1. Coronary artery disease. 2. Diabetes. 3. GERD. 4. Hyperlipidemia. 5. Hypertension. 6. Suspected brachial plexus injury. Patient was born with umbilical cord around his neck and he says he was born with an outstretched arm. PAST SURGICAL HISTORY: 1. AICD. 2. Cholecystectomy. 3. Coronary artery bypass, stent. 4. Left rotator cuff repair. 5. Coronary artery bypass, 4-vessel, stents. PSYCH HISTORY: Depression. SOCIAL HISTORY: Patient started smoking at age of 18. Smoked for about 30 years. Stopped in 2013. Lives with his girlfriend. No alcohol. FAMILY HISTORY: Liver cancer. HOME MEDICATIONS: 1. Restoril 15 mg with supper. 2. Magnesium oxide. 3. Sandra's Wort. 4. Cohosh 1 tablet p.o. daily. 5. Lasix 40 mg p.o. daily. 6. Insulin Lantus 45 units subcutaneously at bedtime. 7. Augmentin 1 tablet p.o. b.i.d. 8. Aspirin 81 mg p.o. daily. 9. Abilify 5 mg p.o. daily. 10.Eliquis 5 mg p.o. b.i.d. 11.Lopid 600 mg b.i.d. 12.Flonase. 13.Cymbalta 60 mg p.o. daily. 14.Coreg 3.125 p.o. b.i.d. 15.Lipitor 80 mg at bedtime. 16.Claritin 10 mg p.o. daily. 17.Zestril 2.5 p.o. daily. 18.NovoLog 15 units before meals t.i.d. 19.Nitrostat 0.4 sublingually q.5 p.r.n. 20.Niacin ER 1000 mg p.o. at bedtime. 21.Protonix 40 mg with breakfast. 22.[place]-3 1 gram p.o. b.i.d. ALLERGIES: NONE. PHYSICAL EXAMINATION: Temperature 98, pulse 97, respiration 14, blood pressure 110/70, pulse ox 99% on room air. GENERAL APPEARANCE: Average build. BMI 31.8. Lying in bed. EYES: Pupils equal. Conjunctivae normal. HEENT: External appearance of nose and ears normal. Oral cavity normal. NECK: JVD not raised. Mass not palpable. RESPIRATORY: Effort normal. Lungs are clear. CARDIOVASCULAR: First and second sounds normal. No edema. ABDOMEN: Soft, non-tender. Liver and spleen not palpable. LYMPHATIC: No lymph node palpable in neck or axillae. PSYCHIATRY: Alert and oriented x3. Mood and affect normal. EXTREMITIES: Patient has some scar sprague on the lower extremities. Patient has had amputation of left foot lateral toes. Some redness, mild tenderness in left lower extremity coming up to below the knee. INVESTIGATIONS: White count 5.6, hemoglobin 11.4, potassium 4, BUN 24, creatinine 1.0. Accu-Cheks are noted. ASSESSMENT: 1. Acute left lower extremity cellulitis. 2. Diabetes mellitus, type 2, chronically on insulin. 3. Coronary artery disease with prior history of coronary artery bypass. 4. Gastroesophageal reflux disease. 5. Hyperlipidemia. 6. Essential hypertension. 7. Depression not otherwise specified. PLAN: Patient was started on vancomycin in the ER. Home medications are resumed. Accu-Cheks will be followed. Will switch the patient over to clindamycin. Labs in the morning. Patient overall is feeling better. MMODL / IJN: [id number] /
[2017-11-16] MEDS: TEMAZEPAM 15 MG CAP PO SCH (17:53)
[2017-11-16 18:53] LABS: Hemoglobin A1C 6.1 % (4.0-6.0)
[2017-11-16] MEDS ORDERED: ATORVASTATIN 80 MG TAB PO SCH (21:00)
[2017-11-16] MEDS ORDERED: NIACIN TR 500 MG CAPSULE.ER PO SCH (21:00)
[2017-11-16] MEDS ORDERED: INSULIN DETEMIR 100 UNIT/ML 10 ML VIAL SQ SCH ×2 (21:00)
[2017-11-16 21:11] LABS: Glucose,Whole Blood 165 mg/dL (75-99)
[2017-11-17] MEDS: VANCOMYCIN 1,750 MG in SODIUM CHLORIDE 0.9% 500 ML IVPB SCH (06:20)
[2017-11-17 07:43] LABS: Glucose,Whole Blood 158 mg/dL (75-99)
[2017-11-17 07:46] VITALS: RESP 16
[2017-11-17] MEDS: ARIPiprazole 5 MG TAB PO SCH (09:26)
[2017-11-17] MEDS: PANTOPRAZOLE 40 MG TABLET PO SCH (09:26)
[2017-11-17] MEDS: MAGNESIUM OXIDE 400 MG TAB PO SCH (09:26)
[2017-11-17] MEDS: CARVEDILOL 3.125 MG TAB PO SCH ×2 (09:26→17:42)
[2017-11-17] MEDS: LISINOPRIL 2.5 MG TAB PO SCH (09:26)
[2017-11-17] MEDS: APIXABAN 5 MG TAB PO SCH (09:26)
[2017-11-17] MEDS: DULoxetine HCL 60 MG CAPSULE.DR PO SCH (09:27)
[2017-11-17] MEDS: FUROSEMIDE 40 MG TAB PO SCH ×2 (09:27→17:41)
[2017-11-17] MEDS: LORATADINE 10 MG TAB PO SCH (09:27)
[2017-11-17] MEDS: ASPIRIN 81 MG PO SCH (09:27)
[2017-11-17] MEDS: INSULIN ASPART 100 UNIT/ML 1 ML 10 ML VIAL SQ SCH ×3 (09:30→17:42)
[2017-11-17] MEDS: FLUTICASONE 50MCG/SPRAY NASAL 16GM EA NOSTRIL SCH (09:32)
[2017-11-17 12:30] LABS: Glucose,Whole Blood 230 mg/dL (75-99)
[2017-11-17] MEDS: LACTATED RINGERS 1,000 ML IV SCH ×2 (13:00→17:42)
[2017-11-17 14:51] VITALS: BP 122/57; PULSE 79; TEMP 96.4
[2017-11-17 17:34] LABS: Glucose,Whole Blood 170 mg/dL (75-99)
[2017-11-17] MEDS: TEMAZEPAM 15 MG CAP PO SCH (17:42)
--- NOTE | 2017-11-17 21:41 | DS ---
DISCHARGE SUMMARY DATE OF ADMISSION: 11/15/2017 DATE OF DISCHARGE: 11/17/2017 FINAL DIAGNOSES: 1. Acute left lower extremity cellulitis. 2. Diabetes mellitus type 2, chronically on insulin. 3. Coronary artery disease, prior history of coronary artery bypass. 4. Gastroesophageal reflux disease. 5. Hyperlipidemia. 6. Essential hypertension. 7. Depression, not otherwise specified. 8. Left foot metatarsal stump following amputation, healing well. HOSPITAL COURSE: This patient has had left foot 2 small toes removed by Dr. Del Cid and follows up with Dr. Winn at the wound center at [facility], admitted with cellulitis left lower extremity, doing much better. The patient had told me he was following with Dr. Del Cid, but Dr. Del Cid told me that the patient actually follows with Dr. Winn at the wound care center. Leg is really doing well. No fever. No chills. The pain is greatly improved. Tolerating a diet. EXAMINATION: Lungs are clear. CARDIOVASCULAR: First and second sounds normal. Much improved appearance of left lower extremity. Wound is healing well. DISCUSSION AND DISCHARGE PLANNING: More than 35 minutes. DISCHARGE MEDICATIONS: 1. Cymbalta 60 mg a day. 2. Lopid 600 mg b.i.d. 3. Flonase 1 spray each nostril daily. 4. Niacin ER 1000 mg p.o. q.h.s. 5. [place]-3 1 g p.o. b.i.d. 6. Lipitor 80 mg q.h.s. 7. Zestril 2.5 p.o. daily. 8. Nitrostat 0.4 sublingual q.5 p.r.n. 9. Protonix 40 mg before breakfast. 10.Eliquis 5 mg p.o. b.i.d. 11.Coreg 3.125 p.o. b.i.d. 12.Insulin Aspart 15 units subcu a.c. t.i.d. p.r.n. 13.Claritin 10 mg p.o. daily. 14.Abilify 5 mg a day. 15.Aspirin 81 mg p.o. daily. 16.Lasix 40 mg daily. 17.Insulin Lantus 45 units subcu q.h.s. 18.Black cohosh 1 tablet p.o. daily. 19.Restoril 50 mg p.o. with supper. 20.Doxycycline 100 mg p.o. q.12, 14 tablets. Wound care to continue as before. FOLLOWUP: With Hilaria Patel in 1 week. Follow up with Dr. Winn at the wound center at [facility]. MMLEONEL / LETTYN: [id number] /
[2017-11-18] MEDS ORDERED: VANCOMYCIN TROUGH DUE 1 EACH MISC MISCELLANE ONE (06:00)
== END 2017-11-17 20:23 | disposition home or self-care (01) | DRG 603 ==
LOC: 4MS4W 21:50
PROVIDERS: ADMIT Hospitalist; ATTEND Hospitalist
DX: L03.116 Cellulitis of left lower limb (principal); E11.9 Type 2 diabetes mellitus without complications; I25.10 Atherosclerotic heart disease of native coronary artery without angina pectoris; K21.9 Gastro-esophageal reflux disease without esophagitis; E78.5 Hyperlipidemia, unspecified; I10 Essential (primary) hypertension; F32.9 Major depressive disorder, single episode, unspecified; Z79.01 Long term (current) use of anticoagulants; Z79.82 Long term (current) use of aspirin; Z79.4 Long term (current) use of insulin; Z79.51 Long term (current) use of inhaled steroids; Z79.899 Other long term (current) drug therapy; Z90.49 Acquired absence of other specified parts of digestive tract; Z87.891 Personal history of nicotine dependence; Z95.1 Presence of aortocoronary bypass graft; Z89.422 Acquired absence of other left toe(s); Z80.0 Family history of malignant neoplasm of digestive organs
CPT/HCPCS: 80048; 83036; 85025

== ENCOUNTER 2017-12-13 17:34 | Inpatient (IN) | payer MEDICARE, OTHER ==
[2017-12-14] MEDS ORDERED: NALOXONE 0.4 MG/ML 1 ML VIAL IV PRN (00:05)
[2017-12-14] MEDS ORDERED: TEMAZEPAM 15 MG CAP PO PRN (00:07)
[2017-12-14] MEDS ORDERED: ALPRAZolam 0.25 MG TAB PO PRN (00:07)
[2017-12-14] MEDS ORDERED: hydrALAZINE HCL 20 MG/ML 1 ML VIAL IVP PRN (00:07)
[2017-12-14] MEDS ORDERED: ACETAMINOPHEN TAB 500 MG TAB PO PRN (00:07)
[2017-12-14] MEDS ORDERED: INSULIN ASPART 100 UNIT/ML 1 ML 10 ML VIAL SQ PRN (00:08)
[2017-12-14] MEDS ORDERED: VANCOMYCIN IV PER PHARMACY 1 EACH MISC MISCELLANE PRN (00:08)
[2017-12-14] MEDS ORDERED: NITROGLYCERIN SL TABS 0.4 MG TAB SUBLINGUAL PRN (00:08)
[2017-12-14] MEDS ORDERED: VANCOMYCIN 2,000 MG in SODIUM CHLORIDE 0.9% 250 ML IVPB ONE (00:30)
[2017-12-14] MEDS ORDERED: VANCOMYCIN 2,000 MG in SODIUM CHLORIDE 0.9% 500 ML IVPB ONE (00:30)
[2017-12-14] MEDS: SODIUM CHLORIDE 0.9% 1,000 ML IV SCH (01:01)
[2017-12-14] MEDS: PIPERACILLIN-TAZOBACTAM 3.375 GM in DEXTROSE/WATER 1 50ML.BAG IVPB SCH ×3 (01:02→18:09)
[2017-12-14] MEDS: HYDROcodone/APAP 5-325MG 1 EACH TAB PO PRN ×2 (01:44→20:49)
--- NOTE | 2017-12-14 06:12 | HP ---
HISTORY AND PHYSICAL DATE OF SERVICE: 12/13/2017 CHIEF COMPLAINT: Pain, swelling and infection of the left foot. HISTORY OF PRESENT ILLNESS: This 52-year-old gentleman with a past medical history of CHF, diabetes, GERD, hypertension, hyperlipidemia being followed by Dr. Hilaria Patel in the outpatient setting presented to [facility] with the complaints of pain and discharge from the left foot. The patient was directly transferred to [facility] for further evaluation and treatment. There is no history of any rigors or chills. No history of headache, loss of consciousness, or seizures. Patient had a previous amputation by Dr. Del Cid. PAST MEDICAL HISTORY: CAD, CHF, diabetes mellitus, history of GERD, hypertension, hyperlipidemia, AICD, CAD, CABG, stent. MEDICATIONS: Medications prior to admission include home medications are: 1. Eliquis 5 mg p.o. b.i.d. 2. Abilify 5 mg p.o. daily. 3. Lipitor 80 mg at bedtime. 4. Ecotrin 81 mg. 5. Flonase 1 spray daily. 6. Vibramycin 100 mg p.o. b.i.d. 7. Cymbalta 60 mg p.o. daily. 8. Coreg 3.125 mg p.o. b.i.d. 9. NovoLog FlexPen 15 units subcutaneous t.i.d. p.r.n. 10.Lopid 600 mg a.c. b.i.d. 11.Lasix 40 mg p.o. daily. 12.Restoril 15 mg with supper. 13.Claritin 10 mg p.o. daily. 14.Zestril 2.5 mg p.o. daily. 15.Basaglar KwikPen 45 units subcutaneous at bedtime. 16.Niacin ER 1000 mg at bedtime. 17.Magnesium oxide 1 p.o. daily. 18.Protonix 40 mg with breakfast. 19.[place]-3 1 p.o. daily. 20.Nitrostat 0.4 sublingual p.r.n. ALLERGIES: Allergies are none. FAMILY HISTORY: History of liver cancer in the family. SOCIAL HISTORY: No history of smoking. No history of alcohol intake. REVIEW OF SYSTEMS: ENT: No diminished hearing or diminished vision. CARDIOVASCULAR SYSTEM: No angina. RESPIRATORY SYSTEM: No cough or hemoptysis. GI: No nausea. : No dysuria. NERVOUS SYSTEM: No numbness or weakness. ALLERGY/IMMUNOLOGICAL: No asthma or hayfever. MUSCULOSKELETAL: As mentioned earlier. HEMATOLOGY/ONCOLOGY: No history of anemia. ENDOCRINE: As mentioned earlier. CONSTITUTIONAL: As mentioned earlier. DERMATOLOGY: Negative. RHEUMATOLOGY: Negative. PSYCHIATRY: As mentioned earlier. PHYSICAL EXAMINATION: The patient is alert and oriented x3. Pulse of 91, blood pressure 137/63, respirations 16, temperature 99.5, pulse ox 97% on room. HEENT: Conjunctivae normal. Oral mucosa moist. Neck is no jugular venous distention. No carotid bruit. No lymph node enlargement. CARDIOVASCULAR: S1, S2 muffled. No S3 or S4. RESPIRATORY: Breath sounds diminished at the bases. A few scattered rhonchi. No crackles. ABDOMEN: Soft, nontender. No mass palpable. LEGS: Left leg pain and swelling and tenderness present. Sensation diminished. NERVOUS SYSTEM: Higher function as mentioned earlier. No focal motor deficit. LYMPHATICS: No lymphadenopathy of the neck, axillae or groin. JOINTS: No active deforming arthropathy. LABS: Labs are not available. ASSESSMENT: 1. Left foot infection with failure of outpatient treatment, rule out osteomyelitis. 2. Diabetes mellitus type 2. 3. Congestive heart failure. 4. Gastroesophageal reflux disease. 5. History of coronary artery disease, stent. 6. Hypertension. 7. Hyperlipidemia. 8. History of AICD. 9. History of cholecystectomy. 10.History of depression. RECOMMENDATIONS AND DISCUSSION: This 52-year-old gentleman who presented with multiple complex medical issues, will monitor the patient closely. Continue the current medications. Continue symptomatic treatment. Otherwise broad-spectrum IV antibiotic, cultures, Infectious Disease and as well as Vascular Surgery consultations. Guarded prognosis because of multiple complex medical issues. Further recommendations to follow. A copy of dictation forwarded to Dr. Hilaria Patel who is the primary physician. Will monitor blood sugars closely. DVT prophylaxis. See orders for details. MMODL / IJN: [id number] /
[2017-12-14 07:22] LABS: Glucose,Whole Blood 122 mg/dL (75-99)
[2017-12-14 07:57] LABS: Basophils % (A) 0 %; Eosinophils % (A) 0 %; HCT 34.3 % (39.0-53.0); HGB 11.1 gm/dL (13.0-17.5); Lymphocytes # (A) 1.1 k/uL (1.0-4.8); Lymphocytes % (A) 11 %; MCH 27.2 pg (25.0-35.0); MCHC 32.3 g/dL (31.0-37.0); MCV 84.1 fL (80.0-100.0); Monocytes # (A) 0.5 k/uL (0-1.0); Monocytes % (A) 4 %; Neutrophils # (A) 8.8 k/uL (1.3-7.7); Neutrophils % (A) 84 %; Platelet Count 128 k/uL (150-450); RBC 4.09 m/uL (4.30-5.90); RDW 14.9 % (11.5-15.5); WBC 10.5 k/uL (3.8-10.6)
[2017-12-14 08:16] LABS: Anion Gap 9 mmol/L; Blood Urea Nitrogen 28 mg/dL (9-20); Calcium 7.8 mg/dL (8.4-10.2); Carbon Dioxide 23 mmol/L (22-30); Chloride 106 mmol/L (98-107); Glucose 103 mg/dL (74-99); Potassium 3.4 mmol/L (3.5-5.1); Sodium 138 mmol/L (137-145)
[2017-12-14] MEDS ORDERED: MAG OX PO SCH (09:00)
[2017-12-14] MEDS ORDERED: [UNRECOGNIZED DRUG - OTHER] PO SCH (09:00)
--- NOTE | 2017-12-14 09:24 | CONS ---
CONSULTATION This is a 52-year-old gentleman known to me from the past. Patient had gangrene of the left foot 4th and 5th toe for that patient went for ray amputation. He has been seeing Dr. Winn in the wound center for local wound care. He came in and admitted to the hospital with swelling, discharge and tenderness to the wound area. The patient is on IV antibiotic and I was consulted for evaluation. MEDICAL HISTORY: History of coronary artery disease, congestive heart failure, diabetes mellitus, history of hypertension, hyperlipidemia, AICD placement, coronary artery disease and CABG and stent placed. The patient is on Eliquis, Ecotrin. PHYSICAL EXAMINATION: On examination, neck is supple. Chest is clear on auscultation. ABDOMEN: Soft. Femorals are present. The patient has a left foot open wound on the lateral aspect post ray amputation of the 4th and 5th toe. Base of the wound is granulating. There is some callus formation noted at this point. We will continue with local wound care and IV antibiotic. Follow with you. MMODL / IJN: [id number] /
[2017-12-14] MEDS: INSULIN ASPART 100 UNIT/ML 1 ML 10 ML VIAL SQ SCH ×4 (10:20→20:50)
[2017-12-14] MEDS: PANTOPRAZOLE 40 MG TABLET PO SCH (10:22)
[2017-12-14] MEDS: LISINOPRIL 2.5 MG TAB PO SCH (10:22)
[2017-12-14] MEDS: GEMFIBROZIL 600 MG TAB PO SCH ×2 (10:22→18:06)
[2017-12-14] MEDS: ASPIRIN 81 MG PO SCH (10:22)
[2017-12-14] MEDS: CARVEDILOL 3.125 MG TAB PO SCH ×2 (10:22→18:07)
[2017-12-14] MEDS: LORATADINE 10 MG TAB PO SCH (10:22)
[2017-12-14] MEDS: FUROSEMIDE 40 MG TAB PO SCH (10:22)
[2017-12-14] MEDS: APIXABAN 5 MG TAB PO SCH ×2 (10:23→20:49)
[2017-12-14] MEDS: DULoxetine HCL 60 MG CAPSULE.DR PO SCH (10:23)
[2017-12-14] MEDS: ARIPiprazole 5 MG TAB PO SCH (10:23)
[2017-12-14] MEDS: FLUTICASONE 50MCG/SPRAY NASAL 16GM EA NOSTRIL SCH (10:23)
[2017-12-14 11:12] LABS: Glucose,Whole Blood 165 mg/dL (75-99)
[2017-12-14 13:39] LABS: Hemoglobin A1C 6.2 % (4.0-6.0)
--- NOTE | 2017-12-14 15:14 | NM ---
EXAMINATION TYPE: NM bone 3 phase DATE OF EXAM: 12/14/2017 COMPARISON: Prior 3 phase bone scan 05/29/2017 HISTORY: Osteomyelitis left foot Triple phase bone scintigraphy was performed following the injection of 26.2 mCi Tc 99m MDP. Immedia te images and 6.5 hours post injection images acquired. FINDINGS: Increased blood flow and blood pool activity noted to the lateral aspect of the left foot, increased radio pharmaceutical uptake noted on delayed imaging focal pattern to the lateral aspect of the left foot. Uptake in the midfoot and ankles is likely degenerative. IMPRESSION: Findings compatible with osteomyelitis lateral left foot.
[2017-12-14 16:57] LABS: Glucose,Whole Blood 170 mg/dL (75-99)
--- NOTE | 2017-12-14 18:06 | CONS ---
CONSULTATION DATE OF SERVICE: 12/14/2017 REASON FOR CONSULTATION: Left diabetic foot infection, possible osteomyelitis. HISTORY OF PRESENT ILLNESS: The patient is a 52-year-old male with a past medical history significant for left diabetic foot infection, Kiki's grade 4, with gangrene of his left fifth toe. The patient subsequently had left fourth and fifth toe amputation. The patient did have a chronic wound, currently being treated at the [facility]. However, the patient has not been very compliant with his follow-up visit in view of unavailability of transportation. The patient presented to [facility] yesterday with the chief complaints of not feeling well off and on, having some fever, and the patient was complaining of more drainage from his left foot lateral wound. The patient subsequently also developed some redness to the left leg. The patient did have mild pain into the left foot, more of a dull aching 3 to 4 out of 10, and no radiation. With these symptoms, the patient was evaluated at that facility and subsequently has been transferred to [facility] for further evaluation and management. Patient on arrival at this hospital was been afebrile. His highest temperature has been 99.5. Patient did have a white count of 10.5. He did have some local wound culture which is currently pending. A bone scan subsequently done is suspicious for osteomyelitis. Patient will be treated with broad-spectrum antibiotics. Infectious Disease was consulted for further recommendations regarding antibiotic therapy. REVIEW OF SYSTEMS: CONSTITUTIONAL: Positive for weakness and some chills. EYES: No complaint. ENT: No complaint. RESPIRATORY: No complaint. CARDIOVASCULAR: No complaint. GENITOURINARY: No complaint. GASTROINTESTINAL: No complaint. MUSCULOSKELETAL: As per HPI. INTEGUMENTARY: As per HPI. PSYCHOLOGICAL: No complaint. ENDOCRINE: No complaint. NEUROLOGICAL: No complaint. PAST MEDICAL HISTORY: 1. Diabetes mellitus, type 2. 2. Gastroesophageal reflux disease. 3. Hypertension. 4. Hyperlipidemia. 5. AICD placement. PAST SURGICAL HISTORY: 1. ICD placement. 2. Cholecystectomy. 3. Coronary artery bypass grafting. 4. Amputation of his left fourth and fifth toes. SOCIAL HISTORY: Remote history of smoking. No drinking or drug use. FAMILY HISTORY: No pertinent findings noticed. ALLERGIES: NO KNOWN DRUG ALLERGIES. CURRENT MEDICATIONS: 1. Vancomycin, Pharmacy to dose. 2. Zosyn 3.375 grams q.8. 3. Tylenol. 4. [place]. 5. Xanax. 6. Eliquis. 7. Abilify. 8. Aspirin. 9. Lipitor. 10.Coreg. 11.Cymbalta. 12.Lasix. 13.Gemfibrozil. 14.Hydralazine. 15.NovoLog. 16.Levemir. 17.Zestril. 18.Claritin. 19.Protonix. PHYSICAL EXAMINATION: Blood pressure 119/59 with a pulse of 79, temperature 97.9. He is 98% on room air. General description is a middle-aged male lying in bed in no distress. No tachypnea or accessory muscle of respiration use. HEENT examination shows slight pallor. No scleral icterus. Oral mucosa membrane is dry. No pharyngeal erythema or thrush. NECK: Trachea is central. No thyromegaly. LUNGS: Unlabored breathing. Clear to auscultation anteriorly. No wheeze or crackle. HEART: S1, S2. Regular rate and rhythm. ABDOMEN: Soft. No tenderness. No guarding or rigidity. EXTREMITIES: Left leg with minimal swelling and redness, slightly warm to touch. Left foot actually looks much better than what was seen last time. Very minimal drainage on the dressing. No significant warmth was noticed or any foul smell. Neurologically patient is awake, alert, oriented x3. Mood and affect normal. LABS: Hemoglobin is 11.1, white count 10.5, BUN of 28, creatinine 1.04. Wound culture currently pending. Unfortunately blood cultures were not done. DIAGNOSTIC IMPRESSION AND PLAN: Patient with left diabetic foot infection with a nonhealing wound to the left lateral foot area, status post amputation of left fourth and fifth toes, now with evidence of secondary cellulitis to the left leg, likely from gram-positive; however, gram-negative infection not excluded in view of his underlying diabetes mellitus, currently controlled. PLAN: 1. We will obtain x-rays of his left foot and compare those with the bone scan that has been ordered to determine the significance of this bone scan. 2. Check a baseline CRP and sed rate. 3. Vancomycin, Pharmacy to dose, target of 15, while watching his kidney function closely, along with Zosyn 3.375 grams q.8 hours. 4. Local wound care with an Aquacel Silver dressing, changing every 48 hours. 5. We will follow up on clinical condition and culture to further adjust medication if needed. Thank you for this consultation. Will follow this patient along with you. MMODL / IJN: [id number] /
[2017-12-14 19:56] LABS: Glucose,Whole Blood 188 mg/dL (75-99)
--- NOTE | 2017-12-14 20:22 | XR ---
EXAMINATION TYPE: XR foot complete LT DATE OF EXAM: 12/14/2017 COMPARISON: NONE HISTORY: Foot pain osteomyelitis TECHNIQUE: 3 views FINDINGS: There is amputation deformity of the little toe at the level of the mid fifth metatarsal. T here is amputation deformity of the fourth toe at the fourth metatarsal head. I see no focal bone mathew truction. There are plantar and Achilles calcaneal spurs. There is soft tissue swelling of the forefo ot. There is deformity of the distal fourth metatarsal consistent with old fracture. IMPRESSION: No acute bony abnormality. Soft tissue swelling. No specific sign of osteomyelitis.
[2017-12-14] MEDS: NIACIN TR 500 MG CAPSULE.ER PO SCH (20:49)
[2017-12-14] MEDS: ATORVASTATIN 80 MG TAB PO SCH (20:49)
[2017-12-14] MEDS: INSULIN DETEMIR 100 UNIT/ML 10 ML VIAL SQ SCH (20:50)
[2017-12-15] MEDS: PIPERACILLIN-TAZOBACTAM 3.375 GM in DEXTROSE/WATER 1 50ML.BAG IVPB SCH ×3 (01:47→16:52)
[2017-12-15] MEDS: SODIUM CHLORIDE 0.9% 1,000 ML IV SCH (05:35)
[2017-12-15 07:13] LABS: Basophils % (A) 0 %; Eosinophils # (A) 0.2 k/uL (0-0.7); Eosinophils % (A) 3 %; HCT 35.7 % (39.0-53.0); HGB 11.3 gm/dL (13.0-17.5); Lymphocytes # (A) 1.3 k/uL (1.0-4.8); Lymphocytes % (A) 18 %; MCHC 31.7 g/dL (31.0-37.0); Mean Platelet Volume 7.3; Monocytes # (A) 0.4 k/uL (0-1.0); Monocytes % (A) 6 %; Neutrophils % (A) 70 %; Platelet Count 128 k/uL (150-450); RDW 14.9 % (11.5-15.5); WBC 7.2 k/uL (3.8-10.6)
[2017-12-15 07:17] LABS: Anion Gap 7 mmol/L; Blood Urea Nitrogen 18 mg/dL (9-20); C Reactive Protein 81.7 mg/L (<10.0); Calcium 8.5 mg/dL (8.4-10.2); Carbon Dioxide 23 mmol/L (22-30); Chloride 108 mmol/L (98-107); Glucose 120 mg/dL (74-99); Potassium 3.9 mmol/L (3.5-5.1); Sodium 138 mmol/L (137-145)
[2017-12-15 07:21] LABS: Glucose,Whole Blood 116 mg/dL (75-99)
[2017-12-15] MEDS: INSULIN ASPART 100 UNIT/ML 1 ML 10 ML VIAL SQ SCH ×4 (07:23→21:36)
[2017-12-15] MEDS: PANTOPRAZOLE 40 MG TABLET PO SCH (08:23)
[2017-12-15] MEDS: FLUTICASONE 50MCG/SPRAY NASAL 16GM EA NOSTRIL SCH (08:23)
[2017-12-15] MEDS: APIXABAN 5 MG TAB PO SCH ×2 (08:24→21:37)
[2017-12-15] MEDS: CARVEDILOL 3.125 MG TAB PO SCH ×2 (08:24→17:53)
[2017-12-15] MEDS: POTASSIUM CHLORIDE ER 20 MEQ TAB.ER PO SCH ×2 (08:24→21:37)
[2017-12-15] MEDS: ARIPiprazole 5 MG TAB PO SCH (08:24)
[2017-12-15] MEDS: LISINOPRIL 2.5 MG TAB PO SCH (08:24)
[2017-12-15] MEDS: FUROSEMIDE 40 MG TAB PO SCH (08:25)
[2017-12-15] MEDS: GEMFIBROZIL 600 MG TAB PO SCH ×2 (08:25→17:53)
[2017-12-15] MEDS: DULoxetine HCL 60 MG CAPSULE.DR PO SCH (08:25)
[2017-12-15] MEDS: ASPIRIN 81 MG PO SCH (08:25)
[2017-12-15] MEDS: LORATADINE 10 MG TAB PO SCH (08:25)
[2017-12-15 09:38] LABS: Erythrocyte Sedimentation Rate 30 mm/hr (0-15)
--- NOTE | 2017-12-15 09:40 | PN ---
PROGRESS NOTE DATE OF SERVICE: 12/14/2017. INTERVAL HISTORY: This 52-year-old gentleman was admitted with significant cellulitis, being closely monitored at this time. The cultures are negative. Infectious Disease and Wound Care, Dr. Del Cid, are following the patient. No chest pain. No palpitations. No fever. EXAM: Alert and oriented x3. Pulse 77, blood pressure 128/77, respirations 16, temperature 98.7, pulse ox 98% on room air. HEENT: Conjunctivae normal. NECK: No JVD. CARDIOVASCULAR: S1 and S2 muffled. LUNGS: Breath sounds diminished at the bases. No rhonchi. No crackles. ABDOMEN: Soft, nontender. EXTREMITIES: Legs, left leg wound. NERVOUS SYSTEM: No focal deficits. LABORATORY DATA: WBC 10, hemoglobin 11, sodium 130, potassium 3.4 otherwise, Accu-Cheks noted. ASSESSMENT: 1. Left foot infection and failure of outpatient treatment. Rule out osteomyelitis. 2. Diabetes type 2. 3. Congestive heart failure. 4. Hypokalemia. 5. Gastroesophageal reflux disease. 6. History of coronary artery disease with stent. 7. Hyperlipidemia. 8. History of automatic implantable cardioverter defibrillator. 9. History of cholecystectomy. 10.History of depression. 11.Osteomyelitis, left lateral foot. RECOMMENDATIONS: Recommend to continue current medication. Continue symptomatic treatment. Continue with broad-spectrum IV antibiotics. Otherwise repeat labs. We will continue to monitor. Bone scan was done which showed osteomyelitis of the left lateral foot. We will continue to monitor. MMODL / IJN: [id number] /
[2017-12-15 12:05] LABS: Glucose,Whole Blood 211 mg/dL (75-99)
--- NOTE | 2017-12-15 16:52 | PN ---
PROGRESS NOTE DATE OF SERVICE: 12/15/2017 This 52-year-old gentleman was admitted with significant cellulitis and possible osteomyelitis of the foot, is being closely monitored. No chest pain or palpitation. No fever. PHYSICAL EXAMINATION: On exam, alert and oriented x3. The pulse is 71, blood pressure 109/57, respiration 18, temperature 97.8, pulse ox 94% on room air. HEENT: Conjunctivae normal. NECK: No jugular venous distention. CARDIOVASCULAR: S1, S2 muffled. RESPIRATORY: Breath sounds diminished at the bases. No rhonchi, no crackles. Abdomen is soft, nontender. LEGS: Left foot infection, possible osteomyelitis. NERVOUS SYSTEM: No focal deficits. LABS: WBC 7.2, hemoglobin 11.3. Glucose 120, 116. C-reactive protein is 81.7. ASSESSMENT: 1. Left foot infection with failure of outpatient treatment, possible osteomyelitis. 2. Diabetes mellitus type 2. 3. Congestive heart failure. 4. Hypokalemia. 5. Gastroesophageal reflux disease. 6. History of coronary artery disease, stent. 7. Hyperlipidemia. 8. History of AICD. 9. History of cholecystectomy. 10.History of depression. 11.Osteomyelitis, left lateral foot: RECOMMENDATIONS AND DISCUSSION: Recommend to continue current medications. Continued monitoring and symptomatic treatment. Otherwise at this time, continue the broad-spectrum IV antibiotics. Closely monitor. Guarded prognosis. Further recommendations to follow. PT, OT evaluation. Possible ECF rehab. MMODL / IJN: [id number] /
[2017-12-15 17:40] LABS: Glucose,Whole Blood 131 mg/dL (75-99)
[2017-12-15 20:36] LABS: Glucose,Whole Blood 158 mg/dL (75-99)
[2017-12-15] MEDS: HYDROcodone/APAP 5-325MG 1 EACH TAB PO PRN (21:36)
[2017-12-15] MEDS: NIACIN TR 500 MG CAPSULE.ER PO SCH (21:37)
[2017-12-15] MEDS: ATORVASTATIN 80 MG TAB PO SCH (21:37)
[2017-12-15] MEDS: INSULIN DETEMIR 100 UNIT/ML 10 ML VIAL SQ SCH (22:04)
[2017-12-16] MEDS: PIPERACILLIN-TAZOBACTAM 3.375 GM in DEXTROSE/WATER 1 50ML.BAG IVPB SCH ×3 (00:21→16:57)
[2017-12-16] MEDS: SODIUM CHLORIDE 0.9% 1,000 ML IV SCH (00:23)
[2017-12-16] MEDS: HYDROcodone/APAP 5-325MG 1 EACH TAB PO PRN ×2 (07:16→15:37)
[2017-12-16] MEDS: APIXABAN 5 MG TAB PO SCH ×2 (07:17→20:14)
[2017-12-16] MEDS: PANTOPRAZOLE 40 MG TABLET PO SCH (07:17)
[2017-12-16] MEDS: GEMFIBROZIL 600 MG TAB PO SCH ×2 (07:17→17:00)
[2017-12-16] MEDS: ARIPiprazole 5 MG TAB PO SCH (07:18)
[2017-12-16] MEDS: LORATADINE 10 MG TAB PO SCH (07:18)
[2017-12-16] MEDS: LISINOPRIL 2.5 MG TAB PO SCH (07:18)
[2017-12-16] MEDS: CARVEDILOL 3.125 MG TAB PO SCH ×2 (07:18→17:36)
[2017-12-16] MEDS: ASPIRIN 81 MG PO SCH (07:19)
[2017-12-16] MEDS: POTASSIUM CHLORIDE ER 20 MEQ TAB.ER PO SCH (07:19)
[2017-12-16 07:20] LABS: Glucose,Whole Blood 135 mg/dL (75-99)
[2017-12-16] MEDS: DULoxetine HCL 60 MG CAPSULE.DR PO SCH (07:20)
[2017-12-16] MEDS: FUROSEMIDE 40 MG TAB PO SCH (07:22)
[2017-12-16] MEDS: FLUTICASONE 50MCG/SPRAY NASAL 16GM EA NOSTRIL SCH (07:22)
[2017-12-16] MEDS: INSULIN ASPART 100 UNIT/ML 1 ML 10 ML VIAL SQ SCH ×4 (07:32→20:51)
[2017-12-16 08:06] LABS: Basophils % (A) 1 %; Eosinophils # (A) 0.3 k/uL (0-0.7); Eosinophils % (A) 4 %; HCT 35.6 % (39.0-53.0); HGB 11.9 gm/dL (13.0-17.5); Lymphocytes # (A) 1.6 k/uL (1.0-4.8); Lymphocytes % (A) 24 %; MCH 27.5 pg (25.0-35.0); MCHC 33.4 g/dL (31.0-37.0); MCV 82.3 fL (80.0-100.0); Mean Platelet Volume 8.1; Monocytes # (A) 0.4 k/uL (0-1.0); Monocytes % (A) 6 %; Neutrophils # (A) 4.2 k/uL (1.3-7.7); Neutrophils % (A) 64 %; Platelet Count 138 k/uL (150-450); RBC 4.33 m/uL (4.30-5.90); RDW 14.9 % (11.5-15.5); WBC 6.6 k/uL (3.8-10.6)
[2017-12-16 08:11] LABS: Anion Gap 10 mmol/L; Calcium 8.9 mg/dL (8.4-10.2); Carbon Dioxide 20 mmol/L (22-30); Chloride 111 mmol/L (98-107); Glucose 110 mg/dL (74-99); Sodium 141 mmol/L (137-145)
[2017-12-16 08:15] LABS: Blood Urea Nitrogen 16 mg/dL (9-20); Potassium 5.6 mmol/L (3.5-5.1)
[2017-12-16 12:04] LABS: Glucose,Whole Blood 159 mg/dL (75-99)
--- NOTE | 2017-12-16 16:38 | PN ---
PROGRESS NOTE DATE OF SERVICE: 12/16/2017. This 52-year-old gentleman who was admitted with left foot infection also has hyperkalemia today. No chest pain. No palpitations. No fever. The multiple organisms grown from the cultures including a Pseudomonas and strep agalactiae. No chest pain. No palpitations. No fever. PHYSICAL EXAM: Alert and oriented x3. Pulse 75, blood pressure 120/72, respiration 18, temperature 97.7, pulse ox 97% on room air. HEENT: Conjunctivae normal. NECK: No jugular venous distention. CARDIOVASCULAR: S1, S2. RESPIRATORY: Breath sounds diminished in the bases. No rhonchi, no crackles. ABDOMEN: Soft. LEGS: Left leg wound present. NERVOUS SYSTEM: No focal deficits. LAB STUDIES: WBC 6, hemoglobin 11.2, potassium 5.6. ASSESSMENT: 1. Left foot infection with failure of outpatient treatment with possible osteomyelitis. 2. Hyperkalemia. 3. Diabetes mellitus type 2. 4. Congestive heart failure history. 5. Hypokalemia. 6. Gastroesophageal reflux disease. 7. History of coronary artery disease, stent. 8. Hyperlipidemia. 9. History of AICD. 10.History of cholecystectomy. 11.History of depression. 12.Osteomyelitis of the left lateral foot. RECOMMENDATIONS AND DISCUSSION: I recommend to continue current medications, monitoring and symptomatic treatment. Otherwise at this time I will recommend to stop the potassium. Monitor lytes closely. Otherwise, continue the rest of the medications. Guarded prognosis. Further recommendations to follow. MMODL / IJN: [id number] /
[2017-12-16 17:20] LABS: Glucose,Whole Blood 166 mg/dL (75-99)
[2017-12-16] MEDS ORDERED: SODIUM POLYSTYRENE SULFONATE 15 GM/60 ML BOTTLE PO STA (19:37)
[2017-12-16] MEDS: NIACIN TR 500 MG CAPSULE.ER PO SCH (20:11)
[2017-12-16] MEDS: ATORVASTATIN 80 MG TAB PO SCH (20:12)
[2017-12-16 20:48] LABS: Glucose,Whole Blood 153 mg/dL (75-99)
[2017-12-16] MEDS: INSULIN DETEMIR 100 UNIT/ML 10 ML VIAL SQ SCH (20:51)
[2017-12-17] MEDS: PIPERACILLIN-TAZOBACTAM 3.375 GM in DEXTROSE/WATER 1 50ML.BAG IVPB SCH ×3 (00:10→17:59)
--- NOTE | 2017-12-17 02:53 | PN ---
PROGRESS NOTE DATE OF SERVICE: 12/16/2017 REASON FOR FOLLOWUP: Left diabetic foot wound with secondary cellulitis. INTERVAL HISTORY: The patient is currently afebrile, has been breathing comfortably. Denies having any chest pain or shortness of breath or cough. No vomiting. The left leg redness has improved and no pain into the leg area. EXAMINATION: Blood pressure 149/73 with a pulse of 73. Temperature 97.3. He is 100% on room air. General description is a middle-aged male lying in bed in no distress. Respiratory system: Unlabored breathing. Clear to auscultation anteriorly. Heart S1, S2. Regular rate and rhythm. Abdomen is soft, no tenderness. Left leg redness has improved. Wound is currently dressed up. No obvious drainage on the dressing. LABS: White count 6.6, BUN of 16, creatinine 0.67. DIAGNOSTIC IMPRESSION AND PLAN: Patient with left diabetic foot wound with secondary cellulitis. Cultures from the foot show Pseudomonas aeruginosa, E coli and Staphylococcus agalactiae. Currently on vancomycin and Zosyn as no gram-positive has been grown. Discontinue the vancomycin. Review the x-ray and the bone scan with radiologist to determine his discharge antibiotics. Continue local wound care as ordered. Continue supportive care. MMODL / IJN: [id number] /
[2017-12-17] MEDS: HYDROcodone/APAP 5-325MG 1 EACH TAB PO PRN ×2 (05:14→21:40)
[2017-12-17] MEDS: SODIUM CHLORIDE 0.9% 1,000 ML IV SCH (05:24)
[2017-12-17 07:00] LABS: Glucose,Whole Blood 150 mg/dL (75-99)
[2017-12-17 08:13] LABS: Basophils % (A) 0 %; Eosinophils # (A) 0.2 k/uL (0-0.7); Eosinophils % (A) 3 %; HCT 38.4 % (39.0-53.0); HGB 12.4 gm/dL (13.0-17.5); Lymphocytes # (A) 1.6 k/uL (1.0-4.8); Lymphocytes % (A) 26 %; MCH 27.3 pg (25.0-35.0); MCHC 32.3 g/dL (31.0-37.0); MCV 84.5 fL (80.0-100.0); Mean Platelet Volume 7.7; Monocytes # (A) 0.3 k/uL (0-1.0); Monocytes % (A) 5 %; Neutrophils # (A) 3.8 k/uL (1.3-7.7); Neutrophils % (A) 63 %; Platelet Count 170 k/uL (150-450); RBC 4.55 m/uL (4.30-5.90); RDW 14.6 % (11.5-15.5)
[2017-12-17 08:26] LABS: Anion Gap 11 mmol/L; Blood Urea Nitrogen 14 mg/dL (9-20); Calcium 9.1 mg/dL (8.4-10.2); Carbon Dioxide 27 mmol/L (22-30); Chloride 103 mmol/L (98-107); Glucose 116 mg/dL (74-99); Potassium 4.2 mmol/L (3.5-5.1); Sodium 141 mmol/L (137-145)
[2017-12-17] MEDS: GEMFIBROZIL 600 MG TAB PO SCH ×2 (08:26→18:00)
[2017-12-17] MEDS: INSULIN ASPART 100 UNIT/ML 1 ML 10 ML VIAL SQ SCH ×4 (08:26→21:39)
[2017-12-17] MEDS: CARVEDILOL 3.125 MG TAB PO SCH ×2 (08:26→18:00)
[2017-12-17] MEDS: ARIPiprazole 5 MG TAB PO SCH (08:27)
[2017-12-17] MEDS: PANTOPRAZOLE 40 MG TABLET PO SCH (08:27)
[2017-12-17] MEDS: ASPIRIN 81 MG PO SCH (08:27)
[2017-12-17] MEDS: APIXABAN 5 MG TAB PO SCH ×2 (08:27→21:38)
[2017-12-17] MEDS: DULoxetine HCL 60 MG CAPSULE.DR PO SCH (08:28)
[2017-12-17] MEDS: LORATADINE 10 MG TAB PO SCH (08:28)
[2017-12-17] MEDS: FLUTICASONE 50MCG/SPRAY NASAL 16GM EA NOSTRIL SCH (08:28)
[2017-12-17] MEDS: FUROSEMIDE 40 MG TAB PO SCH (08:28)
[2017-12-17 11:03] LABS: Glucose,Whole Blood 130 mg/dL (75-99)
--- NOTE | 2017-12-17 12:52 | CDI ---
Last Revision, April 2017 Documentation Clarification Form Date: 12/17/2017 12:38:20 PM From: Dorota PollardDeanTAMMY, CCDS Admit Date: 12/13/2017 8:55:00 PM Patient Name: John Miguel Visit Number: [id number] Discharge Date: ATTENTION: The Clinical Documentation Specialists (CDI) and [facility] Coding Staff appreciate your assistance in clarifying documentation. Please respond to the clarification below the line at the bottom and electronically sign. The CDI & [facility] Coding staff will review the response and follow-up if needed. Please note: Queries are made part of the Legal Health Record. If you have any questions, please contact the author of this message via ITS. Que White MD Osteomyelitis has been documented in the Infectious Disease consult & subsequent documentation. 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 Clinical Indicators: Presented with increased redness, swelling & drainage from the lateral portion of left foot. Labs: Calcium 7.8*, CRP 81.7^. X-Ray Results: NM Bone Scan left foot: Osteomyelitis lateral left foot. Treatment: Insulin sc, IV Vancomycin, IV Zosyn In your professional opinion, please specify the acuity of the patient's osteomyelitis: following: Acute Chronic Subacute Unable to Determine Please continue to document in your progress notes and discharge summary in order to capture severity of illness and risk of mortality. Include clinical findings that support your diagnosis. MTDD
--- NOTE | 2017-12-17 13:51 | PN ---
PROGRESS NOTE DATE OF SERVICE: 12/17/2017. INTERVAL HISTORY: This 52-year-old gentleman who was admitted with left foot infection and failure of failure of outpatient treatment had osteomyelitis. No chest pain. No palpitations. No fever. EXAM: GENERAL: Alert and oriented times three. VITAL SIGNS: Pulse 76. Blood pressure 130/81, respiration 16, temperature 97.8, pulse ox 97% on room air. HEENT: Conjunctivae normal. NECK: No jugular venous distention. CARDIOVASCULAR: S1, S2. RESPIRATORY: Breath sounds diminished in the bases. A few scattered rhonchi. No crackles. ABDOMEN: Soft, nontender. LEGS: Foot infection presented. CENTRAL NERVOUS SYSTEM: No focal deficits. LAB STUDIES: Potassium 4.2, hemoglobin 12.4. Glucose 130. ASSESSMENT: 1. Left foot infection with failure of outpatient treatment with possible osteomyelitis. 2. Hyperkalemia, improved. 3. Diabetes type 2. 4. Congestive heart failure history. 5. Hypokalemia. 6. Gastroesophageal reflux disease. 7. History of coronary artery disease/stent. 8. Hyperlipidemia. 9. History of AICD. 10.History of cholecystectomy. 11.History of depression. 12.Osteomyelitis of the left lateral foot. RECOMMENDATIONS AND DISCUSSION: Recommend to continue current medications, management and symptomatic treatment. Otherwise, at this time, I recommend continue with the current medications. Monitor potassium closely. Otherwise, continue with antibiotics, possible IV antibiotics. Infectious disease evaluation. Further recommendations to follow. MMODL / IJN: [id number] /
[2017-12-17 17:21] LABS: Glucose,Whole Blood 184 mg/dL (75-99)
[2017-12-17 19:57] LABS: Glucose,Whole Blood 158 mg/dL (75-99)
[2017-12-17] MEDS: NIACIN TR 500 MG CAPSULE.ER PO SCH (21:39)
[2017-12-17] MEDS: ATORVASTATIN 80 MG TAB PO SCH (21:39)
[2017-12-17] MEDS: INSULIN DETEMIR 100 UNIT/ML 10 ML VIAL SQ SCH (21:40)
--- NOTE | 2017-12-17 23:32 | PN ---
PROGRESS NOTE DATE OF SERVICE: 12/17/2017 REASON FOR FOLLOWUP: Left diabetic foot wound infection with secondary cellulitis and osteomyelitis, acute. INTERVAL HISTORY: The patient is currently afebrile. He has been breathing comfortably. Denies having any chest pain or shortness of breath or cough and no abdominal pain. Left leg redness has improved. Denies pain to the left foot area. Still has some drainage. PHYSICAL EXAMINATION: Blood pressure 133/56, pulse of 76, temperature 97.3. He is 99% on room air. General description is a middle-aged male lying in bed in no distress. RESPIRATORY SYSTEM: Unlabored breathing. Clear to auscultation anteriorly. HEART: S1, S2. Regular rate and rhythm. ABDOMEN: Soft. No tenderness. Left lateral foot wound currently still has some drainage, but leg redness has improved. LABS: Hemoglobin 12.4, white count 6.0, BUN of 14, creatinine 0.94. DIAGNOSTIC IMPRESSION AND PLAN: Patient with a left diabetic foot infection, Sy grade 3, in a patient who did have a component of acute osteomyelitis involving the left foot wound area on the basis of the bone scan with associated factors, including diabetes mellitus. Antibiotic, currently Zosyn, will be adjusted to cefepime 2 grams q.12, which the patient needs for at least 6 weeks in the outpatient setting. Continue with supportive care. Will get a PICC line tomorrow. MMODL / IJN: [id number] /
[2017-12-18] MEDS: PIPERACILLIN-TAZOBACTAM 3.375 GM in DEXTROSE/WATER 1 50ML.BAG IVPB SCH ×3 (00:25→17:35)
[2017-12-18 07:05] LABS: Glucose,Whole Blood 170 mg/dL (75-99)
[2017-12-18 07:43] LABS: Basophils % (A) 0 %; Eosinophils # (A) 0.2 k/uL (0-0.7); Eosinophils % (A) 2 %; HCT 36.5 % (39.0-53.0); HGB 11.9 gm/dL (13.0-17.5); Lymphocytes % (A) 27 %; MCH 27.3 pg (25.0-35.0); MCHC 32.5 g/dL (31.0-37.0); Mean Platelet Volume 7.9; Monocytes # (A) 0.4 k/uL (0-1.0); Monocytes % (A) 5 %; Neutrophils # (A) 4.9 k/uL (1.3-7.7); Neutrophils % (A) 65 %; Platelet Count 181 k/uL (150-450); RBC 4.34 m/uL (4.30-5.90); RDW 14.6 % (11.5-15.5); WBC 7.6 k/uL (3.8-10.6)
[2017-12-18 07:57] LABS: Anion Gap 8 mmol/L; Blood Urea Nitrogen 15 mg/dL (9-20); Calcium 8.9 mg/dL (8.4-10.2); Carbon Dioxide 29 mmol/L (22-30); Chloride 104 mmol/L (98-107); Glucose 135 mg/dL (74-99); Potassium 3.9 mmol/L (3.5-5.1); Sodium 141 mmol/L (137-145)
[2017-12-18] MEDS: SODIUM CHLORIDE 0.9% 1,000 ML IV SCH (08:07)
[2017-12-18] MEDS: CARVEDILOL 3.125 MG TAB PO SCH ×2 (08:08→17:35)
[2017-12-18] MEDS: GEMFIBROZIL 600 MG TAB PO SCH ×2 (08:08→17:35)
[2017-12-18] MEDS: INSULIN ASPART 100 UNIT/ML 1 ML 10 ML VIAL SQ SCH ×4 (08:09→22:27)
[2017-12-18] MEDS: PANTOPRAZOLE 40 MG TABLET PO SCH (08:09)
[2017-12-18] MEDS: APIXABAN 5 MG TAB PO SCH ×2 (08:10→22:23)
[2017-12-18] MEDS: ARIPiprazole 5 MG TAB PO SCH (08:10)
[2017-12-18] MEDS: ASPIRIN 81 MG PO SCH (08:10)
[2017-12-18] MEDS: DULoxetine HCL 60 MG CAPSULE.DR PO SCH (08:10)
[2017-12-18] MEDS: LORATADINE 10 MG TAB PO SCH (08:11)
[2017-12-18] MEDS: FUROSEMIDE 40 MG TAB PO SCH (08:11)
[2017-12-18] MEDS: FLUTICASONE 50MCG/SPRAY NASAL 16GM EA NOSTRIL SCH (08:11)
[2017-12-18 11:58] LABS: Glucose,Whole Blood 154 mg/dL (75-99)
--- NOTE | 2017-12-18 15:16 | PN ---
PROGRESS NOTE DATE OF SERVICE: 12/18/2017 This is a 52-year-old gentleman who was admitted with possible foot infection, osteomyelitis. Scheduled for a PICC line. No chest pain. No palpitations. No fever. PHYSICAL EXAM: Alert and oriented x3. Pulse 76, blood pressure 112/60, respiration 17, temperature 97.8, pulse ox 98% on room air. HEENT: Conjunctivae normal, oral mucosa moist. Neck is no jugular venous distention. No lymph node enlargement. CARDIOVASCULAR SYSTEMS: S1, S2, muffled. RESPIRATORY: Breath sounds diminished at the bases, no rhonchi, no crackles. ABDOMEN: Soft, nontender. Left foot infection present. Nervous system focal. LABS: WBC 7.2, hemoglobin 11.9. ASSESSMENT: 1. Left foot infection with failure of outpatient treatment, with possible osteomyelitis. 2. Hyperkalemia, improved. 3. Diabetes mellitus type 2. 4. Congestive heart failure. 5. Hypokalemia. 6. Gastroesophageal reflux disease. 7. History of coronary artery disease with stent. 8. Hyperlipidemia. 9. History of AICD. 10.History of cholecystectomy. 11.History of depression. 12.Osteomyelitis of the left lateral foot. RECOMMENDATIONS AND DISCUSSION: Recommend to continue current management and treatment. Otherwise at this time, I recommend top monitor the patient closely. Possible PICC line for outpatient antibiotics. Continue the rest of the medications. Guarded prognosis. Further recommendations to follow. MMKAREEML / LETTYN: [id number] /
[2017-12-18 16:37] LABS: Glucose,Whole Blood 164 mg/dL (75-99)
[2017-12-18 20:26] LABS: Glucose,Whole Blood 153 mg/dL (75-99)
--- NOTE | 2017-12-18 22:22 | PN ---
PROGRESS NOTE DATE OF SERVICE: 12/18/2017. REASON FOR FOLLOWUP: Left diabetic foot infection acute osteomyelitis, culture positive for Pseudomonas, E. coli and group B strep. INTERVAL HISTORY: The patient is currently afebrile. He is waiting for a PICC line placement and outpatient antibiotic arrangement. The patient denies having any chest pain or shortness of breath or cough. No abdominal pain. No diarrhea. EXAMINATION: Blood pressure 110/59 with a pulse of 82, temperature 97.1. He is 97% on room air. General description is a middle-aged male lying in bed in no distress. RESPIRATORY SYSTEM: Unlabored breathing. Clear to auscultation anteriorly. HEART: S1, S2. Regular rate and rhythm. ABDOMEN: Soft. No tenderness. Left leg redness is improved. The foot wound is dressed. Minimal drainage on the dressing. LABS: Hemoglobin is 11.9, white count of 7.6, BUN of 15, creatinine 1.02. DIAGNOSTIC IMPRESSION AND PLAN: Patient with acute left foot diabetic foot infection with acute osteomyelitis, culture positive for Pseudomonas, Escherichia coli and group B Streptococcus. The patient antibiotic will be switched to cefepime 2 g q.12h for total of 6 weeks. Once antibiotic arranged, he should be able to go home from ID standpoint. Local wound care to continue with Aquacel silver dressing. Continue supportive care. MMODL / IJN: [id number] /
[2017-12-18] MEDS: INSULIN DETEMIR 100 UNIT/ML 10 ML VIAL SQ SCH (22:23)
[2017-12-18] MEDS: ATORVASTATIN 80 MG TAB PO SCH (22:27)
[2017-12-18] MEDS: NIACIN TR 500 MG CAPSULE.ER PO SCH (22:28)
[2017-12-18] MEDS: HYDROcodone/APAP 5-325MG 1 EACH TAB PO PRN (22:29)
[2017-12-19] MEDS: PIPERACILLIN-TAZOBACTAM 3.375 GM in DEXTROSE/WATER 1 50ML.BAG IVPB SCH ×2 (03:05→10:24)
[2017-12-19] MEDS: SODIUM CHLORIDE 0.9% 1,000 ML IV SCH (05:55)
[2017-12-19 07:07] LABS: Glucose,Whole Blood 164 mg/dL (75-99)
[2017-12-19 07:43] LABS: HGB 11.5 gm/dL (13.0-17.5); Lymphocytes % (A) 21 %; MCH 27.4 pg (25.0-35.0); MCHC 32.7 g/dL (31.0-37.0); MCV 83.9 fL (80.0-100.0); Mean Platelet Volume 7.7; Neutrophils % (A) 70 %; Platelet Count 142 k/uL (150-450); RBC 4.18 m/uL (4.30-5.90); RDW 14.6 % (11.5-15.5)
[2017-12-19 07:44] LABS: Basophils % (A) 0 %; Eosinophils # (A) 0.1 k/uL (0-0.7); Eosinophils % (A) 1 %; Lymphocytes # (A) 1.6 k/uL (1.0-4.8); Monocytes # (A) 0.6 k/uL (0-1.0); Monocytes % (A) 7 %; Neutrophils # (A) 5.6 k/uL (1.3-7.7)
[2017-12-19] MEDS: CARVEDILOL 3.125 MG TAB PO SCH (07:45)
[2017-12-19] MEDS: INSULIN ASPART 100 UNIT/ML 1 ML 10 ML VIAL SQ SCH ×2 (07:45→12:42)
[2017-12-19] MEDS: LORATADINE 10 MG TAB PO SCH (07:46)
[2017-12-19] MEDS: PANTOPRAZOLE 40 MG TABLET PO SCH (07:46)
[2017-12-19] MEDS: GEMFIBROZIL 600 MG TAB PO SCH (07:46)
[2017-12-19] MEDS: ASPIRIN 81 MG PO SCH (07:46)
[2017-12-19] MEDS: FLUTICASONE 50MCG/SPRAY NASAL 16GM EA NOSTRIL SCH (07:47)
[2017-12-19] MEDS: DULoxetine HCL 60 MG CAPSULE.DR PO SCH (07:47)
[2017-12-19] MEDS: ARIPiprazole 5 MG TAB PO SCH (07:47)
[2017-12-19] MEDS: APIXABAN 5 MG TAB PO SCH (07:47)
[2017-12-19] MEDS: FUROSEMIDE 40 MG TAB PO SCH (07:48)
[2017-12-19 07:54] LABS: Anion Gap 7 mmol/L; Blood Urea Nitrogen 14 mg/dL (9-20); Calcium 8.8 mg/dL (8.4-10.2); Carbon Dioxide 25 mmol/L (22-30); Chloride 106 mmol/L (98-107); Glucose 168 mg/dL (74-99); Potassium 4.3 mmol/L (3.5-5.1); Sodium 138 mmol/L (137-145)
[2017-12-19] MEDS ORDERED: CEFEPIME 2 GM in SODIUM CHLORIDE 0.9% 50 ML IVPB SCH (10:00)
[2017-12-19 11:02] VITALS: BMI 33.2
[2017-12-19 12:01] LABS: Glucose,Whole Blood 199 mg/dL (75-99)
[2017-12-19 15:18] VITALS: BP 108/59; PULSE 82; RESP 18; TEMP 97.6
[2017-12-19] MEDS ORDERED: LIDOCAINE 1% INJ 10MG/ML (20 ML MDV) SQ ONE (15:20)
--- NOTE | 2017-12-19 17:26 | PN ---
PROGRESS NOTE DATE OF SERVICE: 12/19/2017. REASON FOR FOLLOWUP: Left foot acute osteomyelitis with E coli and Pseudomonas aeruginosa and Staphylococcus agalactiae with left leg cellulitis associated diverticulitis. INTERVAL HISTORY: The patient is currently afebrile. He is breathing comfortably. Denies any chest pain or cough. No abdominal pain. He is currently waiting for the PICC line placement for outpatient antibiotic therapy. EXAMINATION: Blood pressure 126/71 with a pulse of 85, temperature 98.2. He is 96% on room air. General description is a middle aged male up in the bed in no distress. Respiratory system: Unlabored breathing. Clear to auscultation anteriorly. Heart is S1, S2. Regular rate and rhythm. Abdomen soft, no tenderness. Left foot has been dressed by the RN. Overall drainage has decreased. Left leg swelling and redness has improved. LABS: White count normal 8.0. Sedimentation rate was 30. Blood cultures not done. DIAGNOSTIC IMPRESSION AND PLAN: Patient with left leg cellulitis in a patient who did have a nonhealing wound to the left foot with bone scan suspicious for osteomyelitis. Culture positive for multiple pathogens, including Pseudomonas, E coli, Streptococcus agalactiae. Antibiotic has been adjusted to cefepime 2 g q.12h. The patient to continue in the outpatient setting for a total of 6 weeks with weekly monitoring of the CBC, BMP and sed rate. Continue supportive care. MMODL / IJN: [id number] /
--- NOTE | 2017-12-19 21:16 | DS ---
DISCHARGE SUMMARY FINAL DIAGNOSES: 1. Left foot infection with failure of outpatient treatment with possible osteomyelitis caused by Pseudomonas E coli and strep agalactiae group B. The patient on IV antibiotics. 2. Status post PICC line. 3. Hyperkalemia, improved. 4. Diabetes type 2. 5. Congestive heart failure. 6. Hypokalemia. 7. Gastroesophageal reflux disease. 8. History of coronary artery disease stent. 9. Hyperlipidemia. 10.History of AICD. 11.Cholecystectomy. 12.History of depression. 13.Depression. DISCHARGE DISPOSITION: The patient is being discharged in stable condition with guarded prognosis. HISTORY OF PRESENT ILLNESS: This 52-year-old gentleman with a past medical history of multiple medical problems, admitted with left foot infection had features of possible osteomyelitis. The patient was started on IV antibiotics. The cultures positive for Pseudomonas E coli and group B Streptococcus. On exam, vital signs are stable. CARDIOVASCULAR : S1, S2. Respiratory: Breath sounds diminished in the bases. Central nervous system: No focal deficits. The patient is being discharged in stable condition with guarded prognosis. Total time taken: 35 minutes. DISCHARGE ADVICE AND MEDICATIONS: 1. Diet is cardiac. 2. Activity limited until follow up. 3. Follow up with Dr. Hilaria Patel in 2-3 days. 4. Follow up with Infectious Disease as recommended. 5. Medications will be Eliquis 5 mg p.o. b.i.d. 6. Abilify 5 mg p.o. daily. 7. Ecotrin 81 mg daily. 8. PICC line care. 9. Coreg 3.125 mg b.i.d. 10.Cymbalta 90 mg p.o. daily. 11.Flonase 1 spray daily. 12.Lasix 40 mg p.o. b.i.d. 13.Lopid 600 mg daily. 14.Insulin FlexPen 15 units as before. 15.Lantus 45 units subcu q.h.s. 16.Claritin 10 mg p.o. daily. 17.Magnesium oxide 1 p.o. daily. 18.Niacin ER 1000 mg q.h.s. 19.Mesa-3 fatty acids 1 p.o. b.i.d. 20.Trazodone 50 mg q.h.s. 21.Tylenol p.r.n. 22.Lipitor 80 mg q.h.s. 23.Maxipime 2 g IV b.i.d. for 42 days. 24.Zestril 2.5 mg daily. 25.Nitrostat 0.4 mg sublingual p.r.n. 26.Protonix 40 mg daily. Once again, the patient is being discharged in stable condition with guarded prognosis. MMODL / IJN: [id number] /
--- NOTE | 2017-12-20 09:05 | IR ---
PICC LINE PLACEMENT: HISTORY: Infection requiring long-term antibiotic therapy PROCEDURE: Ultrasound and fluoroscopic guidance of PICC line placement. COMPLICATIONS: None ANESTHESIA: 1. 1% Lidocaine locally. FINDINGS/TECHNIQUE: The procedure was explained to the patient. The risks, complications, benefits and alternatives were discussed and any questions were answered. Informed consent was obtained. The patient was placed supine on the fluoroscopic table and prepped and draped in the usual sterile formerly [facility] ion. Utilizing a 21 gauge needle and sonographic and fluoroscopic guidance, access in the vein was achieved and there is placement of a 0.018 guidewire. The vein is patent. A 4-F sheath was placed o barbara the guidewire. The guidewire and dilator were removed and a 4-F. PICC line was placed through th e sheath with the tip at the level of the SVC. The sheath was removed, the catheter was flushed and sutured into position. The patient was stable throughout the procedure and remained stable upon disc harge from the Department of Radiology. The vein puncture was patent under ultrasound. A stout scale image was obtained to document patency of the vein punctured. All elements of the maximal barrier technique were utilized. FLUOROSCOPY TIME: 0.4 minutes, one image submitted IMPRESSION: Successful PICC line placement under ultrasound and fluoroscopic guidance.
== END 2017-12-19 17:55 | disposition home health service (06) | DRG 638 ==
LOC: 5MS5E 20:55
PROVIDERS: ADMIT Hospitalist; ATTEND Hospitalist
PROC: 02HV33Z Insertion of Infusion Device into Superior Vena Cava, Percutaneous Approach (ICD-10-PCS; principal; 2017-12-19 15:10)
DX: E11.69 Type 2 diabetes mellitus with other specified complication (principal); M86.172 Other acute osteomyelitis, left ankle and foot; E11.52 Type 2 diabetes mellitus with diabetic peripheral angiopathy with gangrene; I96 Gangrene, not elsewhere classified; L03.116 Cellulitis of left lower limb; B96.5 Pseudomonas (aeruginosa) (mallei) (pseudomallei) as the cause of diseases classified elsewhere; B96.20 Unspecified Escherichia coli [E. coli] as the cause of diseases classified elsewhere; B95.7 Other staphylococcus as the cause of diseases classified elsewhere; E11.628 Type 2 diabetes mellitus with other skin complications; E87.6 Hypokalemia; E87.5 Hyperkalemia; E78.5 Hyperlipidemia, unspecified; F32.9 Major depressive disorder, single episode, unspecified; I11.0 Hypertensive heart disease with heart failure; I25.10 Atherosclerotic heart disease of native coronary artery without angina pectoris; I50.9 Heart failure, unspecified; K21.9 Gastro-esophageal reflux disease without esophagitis; Z79.01 Long term (current) use of anticoagulants; Z79.82 Long term (current) use of aspirin; Z79.4 Long term (current) use of insulin; Z79.899 Other long term (current) drug therapy; Z95.810 Presence of automatic (implantable) cardiac defibrillator; Z95.5 Presence of coronary angioplasty implant and graft; Z95.1 Presence of aortocoronary bypass graft; Z90.49 Acquired absence of other specified parts of digestive tract; Z89.429 Acquired absence of other toe(s), unspecified side; Z87.891 Personal history of nicotine dependence; Z80.0 Family history of malignant neoplasm of digestive organs
CPT/HCPCS: 36569; 76937; 77001; 78315; 80048; 80051; 83036; 85025; 85652; 86140; 87070; 87075; 87077; 87186; 87205; 87324; 93005

== ENCOUNTER 2018-05-06 17:54 | Inpatient (IN) | payer MEDICARE, OTHER ==
[~2018-05-06 17:54] MED LIST: VANCOMYCIN 2,000 MG in SODIUM CHLORIDE 0.9% 500 ML 500 ML IVPB SCH
[2018-05-06] MEDS ORDERED: ONDANSETRON 4 MG/2 ML VIAL IVP PRN (18:44)
--- NOTE | 2018-05-06 18:44 | ED ---
General Adult HPI - General Source: patient, RN notes reviewed Mode of arrival: ambulatory Limitations: no limitations <Mark Kerr - Last Filed: 05/06/18 18:41> <Deshawn Palacios - Last Filed: 05/06/18 20:00> - General Chief complaint: Recheck/Abnormal Lab/Rx Stated complaint: INFECTION Time Seen by Provider: 05/06/18 18:08 - History of Present Illness Initial comments: 52-year-old male present emergency department as a transfer from [facility] for left foot diabetic ulcer. Patient states he has not felt well 53 and was found to have white count 19.4 with blood pressure around 100/70. Patient had a complete workup negative lactic acid. Patient was given ankle and Zosyn. Patient does have 2 IVs established. Patient states he had an amputation on his left foot by Dr. Macias in August. He is seen by Dr. Abdi in the wound center every other week. (Mark Kerr) - Related Data Home Medications Medication Instructions Recorded Confirmed Gemfibrozil [Lopid] 600 mg PO AC-BID 07/06/14 12/14/17 Fluticasone Nasal [place] [Flonase 1 spr EA NOSTRIL DAILY 08/31/15 12/14/17 Nasal [place]] Niacin [Niacin ER] 1,000 mg PO HS 08/31/15 12/14/17 [place]-3 Fatty Acids [[place]-3] 1 cap PO BID 08/31/15 12/14/17 Apixaban [Eliquis] 5 mg PO BID 02/13/17 12/14/17 Carvedilol [Coreg] 3.125 mg PO BID 02/13/17 12/14/17 Insulin Aspart [NovoLOG Flexpen] 15 units SQ AC-TID PRN 02/13/17 12/14/17 Loratadine [Claritin] 10 mg PO DAILY 02/13/17 12/14/17 ARIPiprazole [Abilify] 5 mg PO DAILY 11/16/17 12/14/17 Aspirin EC [Ecotrin Low Dose] 81 mg PO DAILY 11/16/17 12/14/17 Furosemide [Lasix] 40 mg PO BID 11/16/17 12/14/17 Mag Ox/[place] Wart/Eugenio Cohost 1 tab PO DAILY 11/16/17 12/14/17 DULoxetine HCL [Cymbalta] 90 mg PO DAILY 12/14/17 12/14/17 Insulin Glargine,Hum.rec.anlog 45 units SQ HS 12/14/17 12/14/17 [Basaglar Kwikpen U-100] traZODone HCL 50 mg PO HS 12/14/17 12/14/17 Previous Rx's Medication Instructions Recorded Atorvastatin [Lipitor] 80 mg PO HS #30 tab 09/04/15 Nitroglycerin Sl Tabs [Nitrostat] 0.4 mg SUBLINGUAL Q5M PRN #25 tab 09/04/15 Pantoprazole [Protonix] 40 mg PO AC-BRKFST #30 tablet. 09/04/15 Cefepime HCl [Maxipime] 2 gm IV Q12H #84 vial 12/17/17 Acetaminophen Tab [Tylenol] 500 mg PO Q6HR PRN tab 12/19/17 Allergies Allergy/AdvReac Type Severity Reaction Status Date / Time No Known Allergies Allergy Verified 05/06/18 18:10 Review of Systems ROS Other: All systems not noted in ROS Statement are negative. <Mark Kerr - Last Filed: 05/06/18 18:41> ROS Other: All systems not noted in ROS Statement are negative. <Deshawn Palacios - Last Filed: 05/06/18 20:00> ROS Statement: Those systems with pertinent positive or pertinent negative responses have been documented in the HPI. Past Medical History Past Medical History: Coronary Artery Disease (CAD), Heart Failure, Diabetes Mellitus, GERD/Reflux, Hyperlipidemia, Hypertension History of Any Multi-Drug Resistant Organisms: None Reported Past Surgical History: AICD, Cholecystectomy, Coronary Bypass/CABG, Heart Catheterization With Stent, Orthopedic Surgery Additional Past Surgical History / Comment(s): LEFT ROTATOR CUFF REPAIR CABG-4 VESSELS, HEART STENTS X ?2-3 Past Anesthesia/Blood Transfusion Reactions: No Reported Reaction Date of Last Stent Placement:: 2011 Type of Cardiac Device: AICD Device Placement Date:: July 2014 Past Psychological History: Depression Smoking Status: Never smoker Past Alcohol Use History: None Reported Past Drug Use History: None Reported - Past Family History Father Family Medical History: Cancer Additional Family Medical History / Comment(s): LIVER <Mark Kerr - Last Filed: 05/06/18 18:41> General Exam Limitations: no limitations General appearance: alert, in no apparent distress Head exam: Present: atraumatic, normocephalic, normal inspection Eye exam: Present: normal appearance, PERRL, EOMI. Absent: scleral icterus, conjunctival injection, periorbital swelling Respiratory exam: Present: normal lung sounds bilaterally. Absent: respiratory distress, wheezes, rales, rhonchi, stridor Cardiovascular Exam: Present: regular rate, normal rhythm, normal heart sounds. Absent: systolic murmur, diastolic murmur, rubs, gallop, clicks Extremities exam: Present: other (Left foot there is an open wound approximately 5 cm x 2 cm there and stated toes of the fourth and fifth digit) Skin exam: Present: warm, dry, intact, normal color. Absent: rash <Mark Kerr - Last Filed: 05/06/18 18:41> Course <Mark Kerr - Last Filed: 05/06/18 18:41> <Deshawn Palacios - Last Filed: 05/06/18 20:00> Vital Signs 05/06/18 05/06/18 17:59 19:48 Temperature 98.4 F Pulse Rate 100 101 H Respiratory 16 20 Rate Blood Pressure 91/50 97/59 O2 Sat by Pulse 96 97 Oximetry - Reevaluation(s) Reevaluation #1: 05/06/18 20:00 PA supervision: I proceeded [id number] evaluation the patient did discuss the findings with him. Patient is transferred from [facility] for diabetic foot infection. He will require admission. Patient will be admitted with consultation by infectious disease and vascular surgery. I did discuss the case with Dr. Francis. I do agree with the assessment and plan. Patient was relatively hypotensive looking at old charting his systolic blood pressure does run in the very low 100s. He is asymptomatic with no headache dizziness blurry vision focal weakness. (Deshawn Palacios) Medical Decision Making <Mark Kerr - Last Filed: 05/06/18 18:41> <Deshawn Palacios - Last Filed: 05/06/18 20:00> - Medical Decision Making 52-year-old male presented for transfer. Patient will be admitted for diabetic foot ulcer, history of osteomyelitis. Patient we continued on antibiotics with infectious disease consult. (Mark Kerr) Disposition <Mark Kerr - Last Filed: 05/06/18 18:41> <Deshawn Palacios - Last Filed: 05/06/18 20:00> Clinical Impression: Diabetic foot ulcer, Leukocytosis Disposition: ADMITTED IP TO THIS HOSP Condition: Fair Referrals: None,Stated [Primary Care Provider] - 1-2 days
[2018-05-06] MEDS ORDERED: VANCOMYCIN IV PER PHARMACY 1 EACH MISC MISCELLANE PRN (18:46)
[2018-05-06] MEDS ORDERED: VANCOMYCIN 1,000 MG in SODIUM CHLORIDE 0.9% 250 ML IVPB ONE (19:30)
[2018-05-06] MEDS ORDERED: SODIUM CHLORIDE 0.9% 1,000 ML IV ONE (19:41)
[2018-05-06] MEDS: SODIUM CHLORIDE 0.9% 1,000 ML IV SCH (19:44)
[2018-05-06] MEDS ORDERED: INSULIN ASPART 5 UNIT SQ PRN (21:55)
[2018-05-06] MEDS ORDERED: NITROGLYCERIN SL TABS 0.4 MG TAB SUBLINGUAL PRN (22:12)
[2018-05-06] MEDS: INSULIN ASPART 100 UNIT/ML 1 ML 10 ML VIAL SQ SCH (22:56)
[2018-05-06 22:59] LABS: Glucose,Whole Blood 129 mg/dL (75-99)
[2018-05-06] MEDS: INSULIN DETEMIR 100 UNIT/ML 10 ML VIAL SQ SCH (23:25)
[2018-05-06] MEDS: ATORVASTATIN 80 MG TAB PO SCH (23:26)
[2018-05-06] MEDS: NIACIN TR 500 MG CAPSULE.ER PO SCH (23:26)
[2018-05-06] MEDS: APIXABAN 5 MG TAB PO SCH (23:26)
[2018-05-06] MEDS: MAGNESIUM OXIDE 400 MG TAB PO SCH (23:26)
[2018-05-06] MEDS: HYDROcodone/APAP 5-325MG 1 EACH TAB PO PRN (23:30)
[2018-05-06] MEDS: PIPERACILLIN-TAZOBACTAM 3.375 GM in SODIUM CHLORIDE 0.9% 100 ML IVPB SCH (23:31)
[2018-05-07] MEDS: VANCOMYCIN 2,000 MG in SODIUM CHLORIDE 0.9% 500 ML 500 ML IVPB SCH (08:20)
[2018-05-07] MEDS: PIPERACILLIN-TAZOBACTAM 3.375 GM in SODIUM CHLORIDE 0.9% 100 ML IVPB SCH ×2 (08:20→15:39)
[2018-05-07] MEDS: INSULIN ASPART 100 UNIT/ML 1 ML 10 ML VIAL SQ SCH ×7 (08:20→20:43)
[2018-05-07] MEDS: FUROSEMIDE 40 MG TAB PO SCH ×2 (08:21→20:42)
[2018-05-07] MEDS: APIXABAN 5 MG TAB PO SCH ×2 (08:21→20:42)
[2018-05-07] MEDS: FENOFIBRATE 160 MG TAB PO SCH (08:21)
[2018-05-07] MEDS: ASPIRIN 81 MG PO SCH (08:21)
[2018-05-07] MEDS: PANTOPRAZOLE 40 MG TABLET PO SCH (08:21)
[2018-05-07] MEDS: LORATADINE 10 MG TAB PO SCH (08:21)
[2018-05-07] MEDS: MAGNESIUM OXIDE 400 MG TAB PO SCH ×2 (08:21→20:43)
[2018-05-07 08:22] LABS: Glucose,Whole Blood 112 mg/dL (75-99)
[2018-05-07] MEDS ORDERED: OMEGA PO SCH (09:00)
--- NOTE | 2018-05-07 10:11 | CONS ---
DATE OF CONSULTATION: 05/07/2018 This is a 52-year-old diabetic male who is well known to me from the past. Patient had a left foot fourth and fifth toe amputation done in August. The patient had a ray amputation and has been following Dr. Winn in the wound clinic. He came with history of not feeling well and high white cell count. The patient has been admitted and I was consulted for further evaluation. MEDICAL HISTORY: History of coronary artery disease, history of congestive heart failure, history of diabetes mellitus, history of hyperlipidemia, history of hypertension. SURGICAL HISTORY: Patient had an AICD placed in the past, history of cholecystectomy, coronary artery bypass, CABG in the past, history of stent placement and orthopedic surgery and left foot fourth and fifth toe amputation. PHYSICAL EXAMINATION: Patient was seen in his room. NECK: Supple. Trachea central. CHEST: Clear to auscultation. ABDOMEN: Soft. Femorals are 2+. DP not palpable. Patient has a left foot ray amputation. Most of the wound is closed but there is a small opening. Slight tenderness. No discharge noted. PLAN: The patient on IV antibiotic. We will discuss with Infectious Disease. Follow with you. Thank you very much for the consultation. MMODL / IJN: [id number] / MARY
[2018-05-07] MEDS: FLUTICASONE 50MCG/SPRAY NASAL 16GM EA NOSTRIL SCH (11:04)
[2018-05-07] MEDS: ARIPiprazole 5 MG TAB PO SCH (11:05)
[2018-05-07] MEDS: DULoxetine HCL 30 MG CAPSULE.DR PO SCH (11:05)
[2018-05-07] MEDS: SODIUM CHLORIDE 0.9% 1,000 ML IV SCH (11:07)
[2018-05-07] MEDS: CARVEDILOL 3.125 MG TAB PO SCH ×2 (11:07→20:43)
[2018-05-07 12:20] LABS: Glucose,Whole Blood 171 mg/dL (75-99)
[2018-05-07] MEDS: HYDROcodone/APAP 5-325MG 1 EACH TAB PO PRN (15:43)
[2018-05-07 17:07] LABS: Glucose,Whole Blood 127 mg/dL (75-99)
[2018-05-07] MEDS ORDERED: HYDROmorphone 0.5 MG/0.5 ML SYRINGE IVP PRN (18:34)
[2018-05-07] MEDS ORDERED: ALPRAZolam 0.25 MG TAB PO PRN (18:34)
[2018-05-07] MEDS ORDERED: TEMAZEPAM 15 MG CAP PO PRN (18:34)
[2018-05-07] MEDS ORDERED: ACETAMINOPHEN TAB 500 MG TAB PO PRN (18:34)
[2018-05-07 19:49] LABS: Glucose,Whole Blood 160 mg/dL (75-99)
--- NOTE | 2018-05-07 20:41 | HP ---
HISTORY AND PHYSICAL DATE OF SERVICE: 05/07/2018 CHIEF COMPLAINT: Left foot diabetic ulcer. HISTORY OF PRESENT ILLNESS: This 52-year-old gentleman with a past medical history of multiple medical problems including CAD, CHF, history of diabetes, GERD, hypertension, hyperlipidemia, and CAD, CABG, stent being followed by Dr. Tamela Patel in the outpatient setting, also having left diabetic foot ulcer. The patient had previous surgery by Dr. Del Cid. The patient also followed by Dr. Winn in the wound care center. The patient presented to [facility] with left diabetic foot ulcer. The patient was subsequently referred to [facility] and admitted for further evaluation and treatment. There is no history of fever, rigors or chills. No history of headache, loss of consciousness, or seizures at this time. The patient had a possible osteomyelitis previously. Patient had previous Pseudomonas E coli and strep agalactiae group B grown from the cultures. There is no history of fever, rigors or chills. PAST MEDICAL HISTORY: History of CAD, CHF, diabetes, GERD, hypertension, hyperlipidemia, history of AICD, CAD/CABG. MEDICATIONS: Home medications are: 1. Protonix 40 mg a.c. breakfast. 2. [place]-3 1 p.o. b.i.d. 3. Nitrostat 0.4 mg sublingual p.r.n. 4. Niacin ER 1000 mg q.h.s. 5. Magnesium oxide 400 mg b.i.d. 6. Claritin 10 mg. 7. NovoLog FlexPen. 9. Lopid 600 mg a.c. b.i.d. 10.Lasix 40 mg p.o. b.i.d. 11.Flonase 1 spray daily. 12.Cymbalta 90 mg daily. 13.Coreg 3.125 mg p.o. b.i.d. 14.Lipitor 80 mg q.h.s. 15.Ecotrin 81 mg. 16.Eliquis 5 mg p.o. b.i.d. 17.Abilify 5 mg p.o. daily. ALLERGIES: None. FAMILY HISTORY: History of liver cancer in the family. SOCIAL HISTORY: No history of current smoking. No history of alcohol intake. Previous history of smoking. REVIEW OF SYSTEMS: ENT: No diminished hearing or vision. CARDIOVASCULAR: No angina or palpitations. RESPIRATORY: As mentioned earlier. GI: As mentioned earlier. no dysuria. ALLERGY/IMMUNOLOGY: No asthma or hayfever. CENTRAL NERVOUS SYSTEM: No numbness or weakness. MUSCULOSKELETAL: As mentioned earlier. HEMATOLOGY/ONCOLOGY: No history of anemia. ENDOCRINE: No history of diabetes or hypothyroidism. CONSTITUTIONAL: As mentioned earlier. Dermatology: Negative. Rheumatology: Negative. Psychiatry: As mentioned earlier. PHYSICAL EXAMINATION: GENERAL: The patient is alert oriented x3. VITAL SIGNS: Pulse is 85. Blood pressure 109/64, respirations 16, temperature 97.8, pulse ox 94% on room air. HEENT: Conjunctivae normal. NECK: No jugular venous distention. CARDIOVASCULAR: S1, S2 muffled. RESPIRATION: Breath sounds diminished in the bases. Scattered rhonchi and crackles. ABDOMEN: Soft, nontender. LEGS: Minimal bilateral leg edema and peripheral neuropathy. Left foot diabetic ulcer. NERVOUS SYSTEM: Higher functions as mentioned earlier. Moves all four extremities. No focal deficits. Lymphatics: No lymph nodes palpable in the neck, axillae or groin. SKIN: No ulcers. No rashes. No bleeding. LABS: Accu-Cheks 121, 117. ASSESSMENT: 1. Left diabetic foot ulcer with failure of outpatient treatment. 2. History of previous osteomyelitis, left foot. 3. History of coronary artery disease. 4. History of congestive heart failure. 5. Diabetes type 2. 6. Gastroesophageal reflux disease. 7. Hypertension. 8. Hyperlipidemia. 9. AICD. 10.Coronary artery disease/ coronary artery bypass grafting stent. 11.History of depression. 12.Remote history of nicotine dependence. RECOMMENDATIONS AND DISCUSSION: In this 52-year-old gentleman who presented with multiple complex medical issues , we will monitor the patient closely, continue the current medications, management and symptomatic treatment. We will initiate broad-spectrum IV antibiotics. Consult Infectious Disease and as well as Dr. Del Cid. Otherwise, guarded prognosis because of multiple complex medical issues. Further recommendations to follow. A copy of dictation forwarded to Dr. Tamela Patel who is the primary physician. See orders for details. MMODL / IJN: [id number] / MTDD
[2018-05-07] MEDS: ATORVASTATIN 80 MG TAB PO SCH (20:42)
[2018-05-07] MEDS: INSULIN DETEMIR 100 UNIT/ML 10 ML VIAL SQ SCH (20:43)
[2018-05-07] MEDS: NIACIN TR 500 MG CAPSULE.ER PO SCH (20:43)
[2018-05-07] MEDS ORDERED: INSULIN DETEMIR 100 UNIT/ML 10 ML VIAL SQ SCH (21:00)
[2018-05-08] MEDS: VANCOMYCIN 2,000 MG in SODIUM CHLORIDE 0.9% 500 ML 500 ML IVPB SCH (01:02)
[2018-05-08] MEDS: PIPERACILLIN-TAZOBACTAM 3.375 GM in SODIUM CHLORIDE 0.9% 100 ML IVPB SCH ×3 (01:03→15:24)
[2018-05-08 07:16] LABS: Glucose,Whole Blood 134 mg/dL (75-99)
[2018-05-08] MEDS: DULoxetine HCL 30 MG CAPSULE.DR PO SCH (08:54)
[2018-05-08] MEDS: APIXABAN 5 MG TAB PO SCH ×2 (08:54→20:36)
[2018-05-08] MEDS: FENOFIBRATE 160 MG TAB PO SCH (08:54)
[2018-05-08] MEDS: INSULIN ASPART 100 UNIT/ML 1 ML 10 ML VIAL SQ SCH ×7 (08:54→20:36)
[2018-05-08] MEDS: LORATADINE 10 MG TAB PO SCH (08:54)
[2018-05-08] MEDS: ARIPiprazole 5 MG TAB PO SCH (08:54)
[2018-05-08] MEDS: ASPIRIN 81 MG PO SCH (08:54)
[2018-05-08] MEDS: FUROSEMIDE 40 MG TAB PO SCH ×2 (08:54→20:36)
[2018-05-08] MEDS: PANTOPRAZOLE 40 MG TABLET PO SCH (08:54)
[2018-05-08] MEDS: CARVEDILOL 3.125 MG TAB PO SCH ×2 (08:54→20:36)
[2018-05-08] MEDS: MAGNESIUM OXIDE 400 MG TAB PO SCH ×2 (08:54→20:36)
[2018-05-08 08:58] LABS: Basophils % (A) 0 %; Eosinophils # (A) 0.2 k/uL (0-0.7); Eosinophils % (A) 3 %; HCT 37.3 % (39.0-53.0); HGB 11.7 gm/dL (13.0-17.5); Lymphocytes # (A) 1.5 k/uL (1.0-4.8); Lymphocytes % (A) 22 %; MCH 28.4 pg (25.0-35.0); MCHC 31.5 g/dL (31.0-37.0); MCV 90.4 fL (80.0-100.0); Mean Platelet Volume 7.6; Monocytes # (A) 0.3 k/uL (0-1.0); Monocytes % (A) 5 %; Neutrophils # (A) 4.8 k/uL (1.3-7.7); Neutrophils % (A) 68 %; Platelet Count 145 k/uL (150-450); RBC 4.13 m/uL (4.30-5.90); RDW 13.9 % (11.5-15.5)
[2018-05-08 09:00] LABS: ALT 32 U/L (21-72); AST 25 U/L (17-59); Albumin 3.6 g/dL (3.5-5.0); Alkaline Phosphatase 90 U/L (38-126); Anion Gap 10 mmol/L; Blood Urea Nitrogen 10 mg/dL (9-20); Calcium 8.6 mg/dL (8.4-10.2); Carbon Dioxide 25 mmol/L (22-30); Chloride 104 mmol/L (98-107); Glucose 232 mg/dL (74-99); Sodium 139 mmol/L (137-145); Total Bilirubin 0.5 mg/dL (0.2-1.3); Total Protein 6.6 g/dL (6.3-8.2)
[2018-05-08 09:55] LABS: Hemoglobin A1C 6.6 % (4.0-6.0)
[2018-05-08] MEDS: SODIUM CHLORIDE 0.9% 1,000 ML IV SCH ×2 (10:58→20:23)
[2018-05-08] MEDS: FLUTICASONE 50MCG/SPRAY NASAL 16GM EA NOSTRIL SCH (11:00)
[2018-05-08 11:55] LABS: Glucose,Whole Blood 151 mg/dL (75-99)
[2018-05-08] MEDS: HYDROcodone/APAP 5-325MG 1 EACH TAB PO PRN ×2 (12:09→20:40)
--- NOTE | 2018-05-08 12:24 | CONS ---
CONSULTATION REASON FOR CONSULTATION: Left diabetic foot infection and cellulitis. 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 The patient is status post amputation of left fifth and fourth toe and did have a resultant nonhealing wound to his left foot for which the patient followed with us at the [facility]. The patient presented to the [facility] with the chief complaints of not feeling well, no energy. Patient apparently did have slight swelling and redness of the left leg area. Patient denies significant pain to the left foot because of underlying diabetic neuropathy. The patient was evaluated at [facility] where the patient was noticed to have a white count of 19.4, and blood pressure 100/70. The patient did have fluid boluses and subsequently has been transferred to the [facility] for further evaluation of the same. Patient on admission has been afebrile. The patient's white count subsequently normalized to 7.0. His kidney function has been normal. Wound cultures obtained. He has been treated with Zosyn and vancomycin. Infectious Disease was consulted for further recommendation regarding antibiotic therapy. REVIEW OF SYSTEMS: CONSTITUTIONAL: Positive for weakness and some chills. EYES: No complaint. ENT: No complaint. RESPIRATORY: No complaint. CARDIOVASCULAR: No complaint. GENITOURINARY: No complaint. GASTROINTESTINAL: No complaint. MUSCULOSKELETAL: As per HPI. INTEGUMENTARY: As per HPI. PSYCHOLOGICAL: No complaint. ENDOCRINE: No complaint. NEUROLOGIC: No complaint. PAST MEDICAL HISTORY: Significant for insulin-dependent diabetes mellitus, some left diabetic foot infection, Kiki's grade 4, hypertension, hyperlipidemia, AI, arrhythmia and osteomyelitis of the left foot. PAST SURGICAL HISTORY: ICD placement, cholecystectomy, coronary artery bypass grafting, amputation of his left fourth and fifth toe. SOCIAL HISTORY: Remote history of smoking, no drinking or any drug use. FAMILY HISTORY: No pertinent findings noticed. ALLERGIES: No known drug allergies. MEDICATION: Currently include the patient is on vancomycin, pharmacy to dose, Niacin, Nitrostat, Zofran, Protonix, Zosyn 3.375 g q.8. He is on Restoril, Mag oxide, Claritin, NovoLog, Dilaudid, Cymbalta, Lipitor, Eliquis, Abilify, [place] and Tylenol. PHYSICAL EXAMINATION: Blood pressure is 117/75 with a pulse of 90, temperature 97.8. He is 100% on room air. General description is a middle-aged male up in the room in no distress. No tachypnea or accessory muscle for respiration use. HEENT: Shows mild pallor. No scleral icterus. Oral mucosa is extremely dry. No pharyngeal erythema pressure. NECK: Trachea central, no thyromegaly. LUNGS: Unlabored breathing, clear to auscultation anteriorly. No wheeze or crackle. HEART: S1, S2. Regular rate and rhythm. ABDOMEN: Soft, no tenderness. No guarding or rigidity. EXTREMITIES: Left leg with minimal swelling, slightly redness, wound base looks clean with no slough tissue, no surrounding erythema, no foul smelling drainage. NEUROLOGICAL: Patient is awake, alert, oriented. Mood and affect normal. LABS: Hemoglobin 11.7, white count of 7.0, BUN of 10, creatinine 0.81. Blood count has been normal. Wound culture currently pending. DIAGNOSTIC IMPRESSION: The patient admitted to the hospital with generalized not feeling well. Apparently, the patient did have a low-grade fever and elevated white count. Source is likely left diabetic foot infection with secondary cellulitis involving his left leg, more likely from a gram-positive skin jeannie, underlying gram-negative infection not entirely excluded. PLAN: 1. Local wound care with Aquacel Silver dressing to be changed q.48 hours. 2. Ortega the area of the tenderness left leg. 3. Antibiotic in the form of vancomycin, pharmacy to dose. Vanco and Zosyn to continue to cover for the MRSA the most likely pathogen. 4. We will follow up on clinical condition and culture to further adjust medication if needed. Thank you for this consultation. Will follow this patient along with you. MMODL / IJN: [id number] /
[2018-05-08] MEDS: VANCOMYCIN 1,750 MG in SODIUM CHLORIDE 0.9% 500 ML 500 ML IVPB SCH ×2 (13:45→21:17)
[2018-05-08 16:01] VITALS: BMI 32.0
[2018-05-08 17:35] LABS: Glucose,Whole Blood 127 mg/dL (75-99)
--- NOTE | 2018-05-08 17:47 | NM ---
EXAMINATION TYPE: NM bone 3 phase DATE OF EXAM: 05/08/2018 COMPARISON: NONE HISTORY: Osteomyelitis Triple phase bone scintigraphy was performed following the injection of 25.4 mCi Tc 99m MDP. Immedia te images and 3.5 hours post injection images acquired. FINDINGS: The flow study shows some hyperemia of the lateral aspect of the left midfoot. The delayed images maureen w focal increased uptake in the distal fourth and fifth metatarsals as well as the left midfoot. This is seen at the left tarsometatarsal joints. There is slight increased uptake in the mid tarsus of th e right foot. IMPRESSION: Hyperemia and delayed increased uptake in the lateral aspect of the left foot involving the fourth an d fifth metatarsals consistent with chronic osteomyelitis that is not significantly different than th e last bone scan of 12/14/2017. There is no new focus of abnormal uptake compared to last exam. Uptake in the tarsometatarsal joints of the left midfoot consistent with arthritic disease unchanged.
[2018-05-08 20:06] LABS: Glucose,Whole Blood 139 mg/dL (75-99)
[2018-05-08] MEDS: ATORVASTATIN 80 MG TAB PO SCH (20:36)
[2018-05-08] MEDS: NIACIN TR 500 MG CAPSULE.ER PO SCH (20:36)
[2018-05-08] MEDS: INSULIN DETEMIR 100 UNIT/ML 10 ML VIAL SQ SCH (20:37)
--- NOTE | 2018-05-08 21:03 | PN ---
PROGRESS NOTE DATE OF SERVICE: 05/08/2018 This 52-year-old gentleman who was admitted with left diabetic foot ulcer is being evaluated for osteomyelitis. No chest pain. No palpitations. No fever. Bone scan showed of the left foot. There is chronic osteomyelitis of the 4th and 5th metatarsals. No chest pain. No palpitations. No fever. EXAM: Alert and oriented x3. The pulse is 90. Blood pressure is 170/74, respiration 16, temperature 97.8. Pulse ox 100 percent on room air. HEENT: Conjunctivae normal. NECK: No jugular venous distention. CARDIOVASCULAR: S1, S2. Respiration: Breath sounds diminished in the bases. No rhonchi. No crackles. Abdomen is soft, nontender. Legs: Ulcer left foot. No edema. No swelling. Central nervous system: No focal deficits. LABS: WBC 7, hemoglobin 11.7. ASSESSMENT: 1. Left diabetic foot ulcer with failure of outpatient treatment with chronic osteomyelitis of the distal 4th and 5th metatarsal and as well as left midfoot. 2. History of previous osteomyelitis, left foot. 3. History of coronary artery disease. 4. History of congestive heart failure. 5. Diabetes type 2. 6. Gastroesophageal reflux disease. 7. Hypertension. 8. Hyperlipidemia. 9. AICD. 10.Coronary artery disease/coronary artery bypass grafting stent. 11.History of depression. 12.Remote history of nicotine dependence. RECOMMENDATIONS AND DISCUSSION: Recommend to continue current medications. Continue to monitor and symptomatic treatment. Continue with IV antibiotics. Closely follow with multiple consultants including vascular and infectious Disease. Guarded prognosis. Further recommendations to follow. MMODL / IJN: [id number] / MARY
--- NOTE | 2018-05-08 22:11 | XR ---
EXAMINATION TYPE: XR foot complete LT DATE OF EXAM: 05/08/2018 COMPARISON: 12/14/2017 HISTORY: Nonhealing wounds TECHNIQUE: 3 views FINDINGS: There is amputation deformity of the left foot at the distal shaft of the fifth metatarsal and also the head of the fourth metatarsal. There are plantar and Achilles calcaneal spurs. There is been some bone loss compared to old exam at the end of both the fourth and fifth metatarsals consiste nt with chronic osteomyelitis. There is vascular calcification. IMPRESSION: There is bone loss on the lateral aspect of the foot consistent with continued chronic os teomyelitis.
--- NOTE | 2018-05-08 23:00 | PN ---
PROGRESS NOTE DATE OF SERVICE: 05/08/2017 REASON FOR FOLLOWUP: Left diabetic foot wound and secondary cellulitis. INTERVAL HISTORY: The patient is currently afebrile. He is feeling much better, breathing comfortably. The patient denies having any chest pain. No shortness of breath or abdominal pain. No pain to the left foot. He wants to go home. EXAMINATION: Blood pressure is 120/74 with a pulse of 90, temperature 97.9, he is 100% on room air. GENERAL DESCRIPTION: A middle-aged male up in the bed in no distress. RESPIRATORY SYSTEM: Unlabored breathing. LUNGS: Clear to auscultation anteriorly. HEART: S1, S2. Regular rate and rhythm. EXTREMITIES: Left leg swelling and redness is slightly decreased. LABS: The patient did have a bone scan that came back suspicious for osteomyelitis. DIAGNOSTIC IMPRESSION AND PLAN: Patient admitted to the hospital with likely cellulitis of the left leg and possible source of injury being the left diabetic foot wound nonhealing. Clinical suspicion is low for osteomyelitis as the patient was recently treated with a prolonged IV course back in January of 2018. We will obtain an x-ray and compare that with previous x- rays as the culture positive for Streptococcus agalactiae and MSSA, antibiotic was adjusted to cefazolin 2 g every 8 hours. That will be transitioned to oral Keflex on discharge. Continue supportive care. MMODL / IJN: [id number] /
[2018-05-08] MEDS: ceFAZolin IN SWFI 2 GM/20 ML SYRINGE IVP SCH (23:10)
[2018-05-09] MEDS: SODIUM CHLORIDE 0.9% 1,000 ML IV SCH (01:54)
[2018-05-09] MEDS ORDERED: VANCOMYCIN TROUGH DUE 1 EACH MISC MISCELLANE ONE ×2 (07:00→11:00)
[2018-05-09 07:05] LABS: Glucose,Whole Blood 121 mg/dL (75-99)
[2018-05-09] MEDS: INSULIN ASPART 100 UNIT/ML 1 ML 10 ML VIAL SQ SCH ×4 (07:50→12:28)
[2018-05-09 07:52] VITALS: BP 123/73; PULSE 73; RESP 16; TEMP 98.2
[2018-05-09] MEDS: MAGNESIUM OXIDE 400 MG TAB PO SCH (08:05)
[2018-05-09] MEDS: CARVEDILOL 3.125 MG TAB PO SCH (08:05)
[2018-05-09] MEDS: PANTOPRAZOLE 40 MG TABLET PO SCH (08:05)
[2018-05-09] MEDS: APIXABAN 5 MG TAB PO SCH (08:05)
[2018-05-09] MEDS: LORATADINE 10 MG TAB PO SCH (08:06)
[2018-05-09] MEDS: ASPIRIN 81 MG PO SCH (08:06)
[2018-05-09] MEDS: FENOFIBRATE 160 MG TAB PO SCH (08:06)
[2018-05-09] MEDS: FUROSEMIDE 40 MG TAB PO SCH (08:06)
[2018-05-09] MEDS: HYDROcodone/APAP 5-325MG 1 EACH TAB PO PRN (08:06)
[2018-05-09] MEDS: DULoxetine HCL 30 MG CAPSULE.DR PO SCH (08:07)
[2018-05-09] MEDS: ARIPiprazole 5 MG TAB PO SCH (08:07)
[2018-05-09 08:08] LABS: Basophils % (A) 0 %; Eosinophils # (A) 0.2 k/uL (0-0.7); Eosinophils % (A) 4 %; HCT 36.1 % (39.0-53.0); HGB 11.6 gm/dL (13.0-17.5); Lymphocytes # (A) 1.5 k/uL (1.0-4.8); Lymphocytes % (A) 30 %; MCH 28.7 pg (25.0-35.0); MCHC 32.2 g/dL (31.0-37.0); MCV 89.1 fL (80.0-100.0); Monocytes # (A) 0.3 k/uL (0-1.0); Monocytes % (A) 5 %; Neutrophils # (A) 2.9 k/uL (1.3-7.7); Neutrophils % (A) 57 %; Platelet Count 148 k/uL (150-450); RBC 4.06 m/uL (4.30-5.90); RDW 13.9 % (11.5-15.5)
[2018-05-09 08:33] LABS: ALT 43 U/L (21-72); AST 24 U/L (17-59); Albumin 3.7 g/dL (3.5-5.0); Alkaline Phosphatase 79 U/L (38-126); Anion Gap 8 mmol/L; Blood Urea Nitrogen 11 mg/dL (9-20); C Reactive Protein 27.7 mg/L (<10.0); Calcium 8.7 mg/dL (8.4-10.2); Carbon Dioxide 29 mmol/L (22-30); Chloride 104 mmol/L (98-107); Glucose 116 mg/dL (74-99); Sodium 141 mmol/L (137-145); Total Bilirubin 0.5 mg/dL (0.2-1.3); Total Protein 6.7 g/dL (6.3-8.2)
[2018-05-09] MEDS: ceFAZolin IN SWFI 2 GM/20 ML SYRINGE IVP SCH ×2 (10:06→15:35)
[2018-05-09 11:47] LABS: Glucose,Whole Blood 126 mg/dL (75-99)
[2018-05-09 11:51] LABS: Erythrocyte Sedimentation Rate 31 mm/hr (0-15)
[2018-05-09] MEDS: FLUTICASONE 50MCG/SPRAY NASAL 16GM EA NOSTRIL SCH (14:28)
--- NOTE | 2018-05-09 15:30 | PN ---
PROGRESS NOTE DATE OF SERVICE: 05/09/2018 REASON FOR FOLLOWUP: Left diabetic foot wound with secondary cellulitis. INTERVAL HISTORY: The patient is currently afebrile. He is feeling better. Breathing comfortably. Patient denies having any chest pain or shortness of breath. No cough, no abdominal pain. No pain to the left foot and wants to go home. PHYSICAL EXAMINATION: Blood pressure is 123/73 with a pulse of 73, temperature 98.2, he is 100% on room air. General description is a middle-aged male up in the bed, in no distress. RESPIRATORY SYSTEM: Unlabored breathing, clear to auscultation anteriorly. HEART: S1, S2. Regular rate and rhythm. ABDOMEN: Soft, no tenderness. Left foot with current dressing, leg swelling and redness has improved. LABS: Hemoglobin 11.1, white count of 5.0 with hematocrit of 31, creatinine 0.81. The bone scan and the x-rays were reviewed with radiologist and has been almost essentially the same as what he has in December of 2017. DIAGNOSTIC IMPRESSION AND PLAN: Patient admitted to the hospital with not feeling well. Did have a left lower extremity cellulitis, likely the source of infection being the left diabetic foot wound, culture positive for methicillin-susceptible Staphylococcus aureus and group B strep. The patient did have a previous episode of osteomyelitis at the same site. Cultures at that time were positive for methicillin-susceptible Staphylococcus aureus, group B strep and Pseudomonas aeruginosa and has been treated with almost 8 weeks of antibiotic therapy. Clinically doubt osteomyelitis at this point. Recommend local wound care with Aquacel Silver, antibiotic transition to oral Keflex 500 mg q.6 hours for 10 days with close outpatient followup. Plan of care was discussed with the admitting team. Continue supportive care and patient follow up in the wound center next week. MMODL / IJN: [id number] /
--- NOTE | 2018-05-09 20:49 | DS ---
DISCHARGE SUMMARY DATE OF SERVICE: 05/09/2018. FINAL DIAGNOSE: 1. Left foot diabetic ulcer with failure of outpatient treatment with chronic osteomyelitis of distal 4th and 5th metatarsal as well as left mid foot. 2. History of previous osteomyelitis, left foot. 3. History of coronary artery disease. 4. History of congestive heart failure. 5. Diabetes type 2. 6. Gastroesophageal reflux disease. 7. Hypertension. 8. Hyperlipidemia. 9. History of AICD. 10.History of coronary artery disease, coronary artery bypass grafting, stent. 11.History of depression. 12.Remote history of nicotine dependence. DISCHARGE DISPOSITION: The patient is being discharged in stable condition with guarded prognosis. HISTORY OF PRESENT ILLNESS: This 52-year-old gentleman admitted with significant left diabetic foot, chronic osteomyelitis was suspected. Patient on IV antibiotics. Dr. Winn recommend p.o. antibiotics and continue to monitor. On exam, vitals are stable. Cardiovascular: S1, S2. ABDOMEN: Soft. Central nervous system: No focal deficits. Left foot also present. DISCHARGE ADVICE AND MEDICATIONS: 1. Diet is cardiac diet. 2. Activity limited until followup. 3. Follow up with Dr. Tamela Patel in 2-3 days. 4. Follow up with infectious disease as recommend, Dr. Winn as recommended. 5. Follow up with Dr. Hilaria Patel in 2-3 days. DISCHARGE MEDICATIONS: 1. Eliquis 5 mg p.o. b.i.d. 2. Abilify 5 mg. 3. Ecotrin 81 mg. 4. Coreg 3.125 mg p.o. b.i.d. 5. Cymbalta 90 mg p.o. 6. Flonase 1 spray daily. 7. Lasix 40 mg p.o. daily. 8. Lopid 600 mg p.o. b.i.d. 9. Insulin FlexPen 15 units a.c. t.i.d. p.r.n. 10.Claritin 10 mg. 11.Magnesium oxide 400 mg b.i.d. 12.Niacin ER 1000 mg q.h.s. 13.[place]-3 fatty acids 1 p.o. b.i.d. 14.Tylenol p.r.n. 15.Lipitor 80 mg q.h.s. 16.Keflex 500 mg q.6 for 10 days. 17.Insulin glargine 42 units subcu q.h.s. 18.Nitrostat p.r.n. 19.Protonix 40 mg daily. Once again, the patient is being discharged in stable condition with guarded prognosis. MMODL / IJN: [id number] /
== END 2018-05-09 16:35 | disposition home or self-care (01) | DRG 638 ==
LOC: EC 17:54 → 4SSUR 19:59
PROVIDERS: ADMIT Internal Medicine; ATTEND Internal Medicine
DX: E11.628 Type 2 diabetes mellitus with other skin complications (principal); L03.116 Cellulitis of left lower limb; M86.672 Other chronic osteomyelitis, left ankle and foot; E11.40 Type 2 diabetes mellitus with diabetic neuropathy, unspecified; I50.9 Heart failure, unspecified; I11.0 Hypertensive heart disease with heart failure; E11.621 Type 2 diabetes mellitus with foot ulcer; E11.69 Type 2 diabetes mellitus with other specified complication; B95.1 Streptococcus, group B, as the cause of diseases classified elsewhere; B95.61 Methicillin susceptible Staphylococcus aureus infection as the cause of diseases classified elsewhere; E78.5 Hyperlipidemia, unspecified; I25.10 Atherosclerotic heart disease of native coronary artery without angina pectoris; K21.9 Gastro-esophageal reflux disease without esophagitis; F32.9 Major depressive disorder, single episode, unspecified; Z79.899 Other long term (current) drug therapy; Z79.01 Long term (current) use of anticoagulants; Z79.4 Long term (current) use of insulin; Z79.82 Long term (current) use of aspirin; Z95.810 Presence of automatic (implantable) cardiac defibrillator; Z95.5 Presence of coronary angioplasty implant and graft; Z95.1 Presence of aortocoronary bypass graft; Z90.49 Acquired absence of other specified parts of digestive tract; Z87.891 Personal history of nicotine dependence; Z89.422 Acquired absence of other left toe(s); Z80.0 Family history of malignant neoplasm of digestive organs
CPT/HCPCS: 78315; 80053; 83036; 85025; 85652; 86140; 87070; 87077; 87186; 87205; 96365; 99284

== ENCOUNTER 2018-07-22 20:57 | Inpatient (IN) | payer MEDICARE, OTHER ==
[2018-07-23] MEDS ORDERED: NALOXONE 0.4 MG/ML 1 ML VIAL IV PRN (00:33)
[2018-07-23] MEDS ORDERED: CALCIUM CARBONATE 500 MG CHEWABLE PO PRN (00:33)
[2018-07-23] MEDS ORDERED: ALPRAZolam 0.25 MG TAB PO PRN (00:33)
[2018-07-23] MEDS ORDERED: ACETAMINOPHEN TAB 325 MG TAB PO PRN (00:33)
[2018-07-23] MEDS ORDERED: TEMAZEPAM 15 MG CAP PO PRN (00:36)
[2018-07-23] MEDS ORDERED: HYDROmorphone 0.5 MG/0.5 ML SYRINGE IVP PRN (00:36)
[2018-07-23] MEDS ORDERED: VANCOMYCIN IV PER PHARMACY 1 EACH MISC MISCELLANE PRN (00:39)
[2018-07-23] MEDS ORDERED: ACETAMINOPHEN TAB 500 MG TAB PO PRN (00:48)
[2018-07-23] MEDS ORDERED: INSULIN ASPART (NovoLOG) 100 UNIT/ML VIAL SQ PRN (00:48)
[2018-07-23] MEDS ORDERED: NITROGLYCERIN SL TABS 0.4 MG TAB SUBLINGUAL PRN (00:48)
[2018-07-23] MEDS: SODIUM CHLORIDE 0.9% 1,000 ML IV SCH (01:22)
[2018-07-23] MEDS: PIPERACILLIN-TAZOBACTAM 3.375 GM in SODIUM CHLORIDE 0.9% 100 ML IVPB SCH ×3 (01:22→20:55)
--- NOTE | 2018-07-23 01:59 | XR ---
EXAM: XR Chest, 2 Views CLINICAL HISTORY: chf TECHNIQUE: Frontal and lateral views of the chest. COMPARISON: 09/02/15. FINDINGS: Lungs: Unremarkable. No consolidation. Pleural space: Unremarkable. No pneumothorax. Heart: Unremarkable. Pacing device over the left hemithorax. The cardiac silhouette appears to be within normal limits. Mediastinum: Unremarkable. Bones/joints: Unremarkable. IMPRESSION: Unremarkable 2 views of the chest
[2018-07-23] MEDS ORDERED: VANCOMYCIN 1,750 MG in SODIUM CHLORIDE 0.9% 500 ML 500 ML IVPB ONE (02:00)
[2018-07-23] MEDS ORDERED: PANTOPRAZOLE 40 MG TABLET PO SCH (07:30)
[2018-07-23 08:15] LABS: Glucose,Whole Blood 154 mg/dL (75-99)
[2018-07-23] MEDS ORDERED: OMEGA PO SCH (09:00)
[2018-07-23] MEDS: FLUTICASONE 50MCG/SPRAY NASAL 16GM EA NOSTRIL SCH (09:00)
[2018-07-23] MEDS: HEPARIN SODIUM,PORCINE 5,000 UNIT/ML 1 ML VIAL SQ SCH ×2 (09:00→20:55)
[2018-07-23] MEDS: ASPIRIN 81 MG PO SCH (09:02)
[2018-07-23] MEDS: APIXABAN 5 MG TAB PO SCH ×2 (09:02→20:55)
[2018-07-23] MEDS: MAGNESIUM OXIDE 400 MG TAB PO SCH (09:02)
[2018-07-23] MEDS: DULoxetine HCL 30 MG CAPSULE.DR PO SCH (09:02)
[2018-07-23] MEDS: FENOFIBRATE 160 MG TAB PO SCH (09:02)
[2018-07-23] MEDS: metFORMIN 500 MG TAB PO SCH ×2 (09:02→18:09)
[2018-07-23] MEDS: CARVEDILOL 3.125 MG TAB PO SCH ×2 (09:03→18:05)
[2018-07-23] MEDS: ARIPiprazole 5 MG TAB PO SCH (09:03)
[2018-07-23] MEDS: FUROSEMIDE 40 MG TAB PO SCH ×2 (09:03→20:55)
[2018-07-23] MEDS: LORATADINE 10 MG TAB PO SCH (09:03)
[2018-07-23] MEDS: PANTOPRAZOLE 40 MG TABLET PO SCH (09:04)
[2018-07-23] MEDS: INSULIN ASPART (NovoLOG) 100 UNIT/ML VIAL SQ SCH ×4 (09:04→20:55)
[2018-07-23 11:39] LABS: Anion Gap 10 mmol/L; Blood Urea Nitrogen 23 mg/dL (9-20); Calcium 8.7 mg/dL (8.4-10.2); Carbon Dioxide 25 mmol/L (22-30); Chloride 103 mmol/L (98-107); Glucose 154 mg/dL (74-99); Potassium 4.2 mmol/L (3.5-5.1); Sodium 138 mmol/L (137-145)
[2018-07-23 12:10] LABS: Glucose,Whole Blood 175 mg/dL (75-99)
[2018-07-23] MEDS: VANCOMYCIN 1,750 MG in SODIUM CHLORIDE 0.9% 500 ML 500 ML IVPB SCH (16:37)
[2018-07-23 16:52] LABS: Glucose,Whole Blood 210 mg/dL (75-99)
--- NOTE | 2018-07-23 20:53 | P.HPIM ---
History of Present Illness H&P Date: 07/23/18 Chief Complaint: Left foot infection Patient is a 52-year-old male with a known history of with stent placement, coronary artery bypass Four-vessel, cardiomyopathy AICD placement, diabetes type 2 insulin-dependent, hypertension, hyperlipidemia and history of left fourth and fifth toe accommodation and diabetic foot ulcer came to the hospital with worsening leg pain as well infection. Patient was initially presented to [facility] and was transferred to [facility] for wound care and ID evaluation. Patient is currently complaining of left foot pain.. No fever no chills. No chest pain or shortness of breath. Patient is to follow with wound care clinic. Patient is currently started on vancomycin and Zosyn. ID was consulted. chest x-ray showed no acute pulmonary process Review of Systems Constitutional: Patient denies any fever or chills . No generalized weakness or weight loss. Abdomen: Patient denied nausea vomiting and diarrhea and abdominal pain. Cardiovascular: Patient denies any chest pain or short of breath no palpitations. Respiratory: patient denied any cough is from production. No shortness of breath Neurologic: Patient denied any numbness or tingling headache. Musculoskeletal: Patient denies any complaints of joint swelling or deformity. Left foot pain. Skin: Negative Psychiatric: Negative Endocrine: No heat or cold intolerance. No recent weight gain. Genitourinary: No dysuria or hematuria. All other 14 point ROS negative except the above Past Medical History Past Medical History: Coronary Artery Disease (CAD), Heart Failure, Diabetes Mellitus, GERD/Reflux, Hyperlipidemia, Hypertension History of Any Multi-Drug Resistant Organisms: None Reported Past Surgical History: AICD, Cholecystectomy, Coronary Bypass/CABG, Heart Catheterization With Stent, Orthopedic Surgery Additional Past Surgical History / Comment(s): LEFT ROTATOR CUFF REPAIR CABG-4 VESSELS, HEART STENTS X ?2-3 Past Anesthesia/Blood Transfusion Reactions: No Reported Reaction Date of Last Stent Placement:: 2011 APPROX Type of Cardiac Device: AICD Device Placement Date:: July 2014 Past Psychological History: Depression Smoking Status: Former smoker Past Alcohol Use History: None Reported Additional Past Alcohol Use History / Comment(s): QUIT SMOKING APPROX 2007, STARTED SMOKING AT AGE 18 Past Drug Use History: None Reported - Past Family History Mother Family Medical History: Diabetes Mellitus Father Family Medical History: Cancer Additional Family Medical History / Comment(s): LIVER Medications and Allergies Home Medications Medication Instructions Recorded Confirmed Type Gemfibrozil [Lopid] 600 mg PO AC-BID 07/06/14 07/23/18 History Fluticasone Nasal [place] [Flonase 1 spr EA NOSTRIL DAILY 08/31/15 07/23/18 History Nasal [place]] Niacin [Niacin ER] 1,000 mg PO HS 08/31/15 07/23/18 History [place]-3 Fatty Acids [[place]-3] 1 cap PO BID 08/31/15 07/23/18 History Atorvastatin [Lipitor] 80 mg PO HS #30 tab 09/04/15 07/23/18 Rx Nitroglycerin Sl Tabs [Nitrostat] 0.4 mg SUBLINGUAL Q5M PRN #25 tab 09/04/15 07/23/18 Rx Pantoprazole [Protonix] 40 mg PO AC-BRKFST #30 tablet. 09/04/15 07/23/18 Rx Apixaban [Eliquis] 5 mg PO BID 02/13/17 07/23/18 History Carvedilol [Coreg] 3.125 mg PO BID 02/13/17 07/23/18 History Insulin Aspart [NovoLOG Flexpen] 5 units SQ AC-TID PRN 02/13/17 07/23/18 History Loratadine [Claritin] 10 mg PO DAILY 02/13/17 07/23/18 History ARIPiprazole [Abilify] 5 mg PO DAILY 11/16/17 07/23/18 History Aspirin EC [Ecotrin Low Dose] 81 mg PO DAILY 11/16/17 07/23/18 History Furosemide [Lasix] 40 mg PO BID 11/16/17 07/23/18 History Magnesium Oxide [Mag-Ox] 400 mg PO BID 05/06/18 07/23/18 History Acetaminophen Tab [Tylenol] 500 mg PO Q6HR PRN tab 05/09/18 07/23/18 Rx DULoxetine HCL [Cymbalta] 120 mg PO DAILY 07/23/18 07/23/18 History HYDROcodone/APAP 7.5-325MG [[place] 1 tab PO TID PRN 07/23/18 07/23/18 History 7.5-325] Insulin Glargine,Hum.rec.anlog 24 unit SQ HS@2300 07/23/18 07/23/18 History [Basaglar Myrtleikpen U-100] Lisinopril [Zestril] 2.5 mg PO DAILY 07/23/18 07/23/18 History metFORMIN HCL [Glucophage] 1,000 mg PO BID 07/23/18 07/23/18 History Allergies Allergy/AdvReac Type Severity Reaction Status Date / Time No Known Allergies Allergy Verified 07/23/18 09:31 Physical Exam Vitals: Vital Signs Temp Pulse Resp BP Pulse Ox 07/23/18 15:00 98.0 F 112 H 19 92/52 96 07/23/18 07:00 98.0 F 87 19 111/64 07/23/18 00:33 97 07/22/18 23:35 98.1 F 97 17 117/72 97 Intake and Output 07/23/18 07/23/18 07/23/18 06:59 14:59 22:59 Intake Total 600 1240 Balance 600 1240 Intake: Intake, IV Titration 600 240 Amount Piperacillin-Tazobactam 3 100 100 .375 gm In Sodium Chloride 0.9% 100 ml @ 25 mls/hr IVPB Q8H [facility] Rx#: [id number] Sodium Chloride 0.9% 1, 140 000 ml @ 20 mls/hr IV . Q24H [facility] Rx#:[id number] Vancomycin 1,750 mg In 500 Sodium Chloride 0.9% 500 ml 500 ml @ 167 mls/hr IVPB Q12H [facility] Rx#: [id number] Oral 1000 Other: # Voids 1 Weight 110.551 kg 112.718 kg PHYSICAL EXAMINATION: Patient is lying in the bed comfortably, no acute distress, awake alert and oriented.. HEENT: Normocephalic. Neck is supple. Pupils reactive. Nostrils clear. Oral cavity is moist. Ears reveal no drainage. Neck reveals no JVD, carotid bruits, or thyromegaly. CHEST EXAMINATION: Trachea is central. Symmetrical expansion. Bibasilar diminished air entry. Lung ann clear to auscultation and percussion. CARDIAC: Normal S1, S2 with no gallops. No murmurs ABDOMEN: Soft. Bowel sounds normal. No organomegaly. No abdominal bruits. Extremities: reveal no edema. Left foot fourth and fifth toe amputation. foot ulcer with discharge.. No clubbing or cyanosis Neurologically awake, alert, oriented x3 with well-coordinated movements. No focal deficits noted Skin: No rash or skin lesions. Psychiatric: Coperative. Nonsuicidal Musculoskeletal: No joint swelling or deformity. Normal range of motion. Results CBC & Chem 7: 07/23/18 11:07 Labs: Abnormal Lab Results - Last 24 Hours (Table) 07/23/18 07/23/18 07/23/18 Range/Units 07:45 11:07 11:57 BUN 23 H (9-20) mg/dL Glucose 154 H (74-99) mg/dL POC Glucose (mg/dL) 154 H 175 H (75-99) mg/dL Microbiology - Last 24 Hours (Table) 07/23/18 02:00 Gram Stain - Preliminary Foot - Left Wound Culture - Preliminary Thrombosis Risk Factor Assmnt - DVT/VTE Prophylaxis DVT/VTE Prophylaxis: Pharmacologic Prophylaxis ordered - Choose All That Apply Any of the Below Risk Factors Present?: Yes Each Factor Represents 1 point: Age 41-60 years, Obesity (BMI >25) Other Risk Factors: No Other congenital or acquired thrombophilia - If yes, enter type in comment: No Thrombosis Risk Factor Assessment Total Risk Factor Score: 2 Thrombosis Risk Factor Assessment Level: Low Risk Assessment and Plan Assessment: Left diabetic foot ulcer with surrounding cellulitis.. Coronary artery disease with history of CABG and stent placement Ischemic cardio myopathy status post AICD Diabetes type 2 insulin-dependent Hypertension Hyperlipidemia GERD Depression Previous history of smoking Plan: Patient be continued on antibiotics no cough vancomycin and Zosyn. ID was co nsulted. Wound cultures were sent. Continue with insulin dosing as per home regimen. Continue With home medications. Further recommendations based on the clinical course. Time with Patient: Greater than 30
[2018-07-23] MEDS: ATORVASTATIN 80 MG TAB PO SCH (20:55)
[2018-07-23] MEDS: INSULIN DETEMIR (LEVEMIR) 100 UNIT/ML SYR SQ SCH (20:55)
[2018-07-23 21:02] LABS: Glucose,Whole Blood 154 mg/dL (75-99)
[2018-07-23] MEDS: NIACIN TR 500 MG CAPLET PO SCH (21:02)
[2018-07-24] MEDS: SODIUM CHLORIDE 0.9% 1,000 ML IV SCH (01:00)
[2018-07-24] MEDS: VANCOMYCIN 1,750 MG in SODIUM CHLORIDE 0.9% 500 ML 500 ML IVPB SCH ×2 (03:00→17:19)
[2018-07-24 08:10] LABS: Glucose,Whole Blood 119 mg/dL (75-99)
[2018-07-24] MEDS: INSULIN ASPART (NovoLOG) 100 UNIT/ML VIAL SQ SCH ×4 (08:24→20:38)
[2018-07-24 08:44] LABS: Basophils % (A) 1 %; Eosinophils # (A) 0.3 k/uL (0-0.7); Eosinophils % (A) 5 %; HCT 40.3 % (39.0-53.0); HGB 13.1 gm/dL (13.0-17.5); Lymphocytes % (A) 31 %; MCH 28.9 pg (25.0-35.0); MCHC 32.6 g/dL (31.0-37.0); MCV 88.7 fL (80.0-100.0); Mean Platelet Volume 7.7; Monocytes # (A) 0.5 k/uL (0-1.0); Monocytes % (A) 7 %; Neutrophils # (A) 3.4 k/uL (1.3-7.7); Neutrophils % (A) 54 %; Platelet Count 146 k/uL (150-450); RBC 4.54 m/uL (4.30-5.90); RDW 13.5 % (11.5-15.5); WBC 6.4 k/uL (3.8-10.6)
[2018-07-24] MEDS: CARVEDILOL 3.125 MG TAB PO SCH ×2 (08:49→17:18)
[2018-07-24] MEDS: FENOFIBRATE 160 MG TAB PO SCH (08:50)
[2018-07-24] MEDS: ARIPiprazole 5 MG TAB PO SCH (08:50)
[2018-07-24] MEDS: metFORMIN 500 MG TAB PO SCH ×2 (08:50→17:25)
[2018-07-24] MEDS: PANTOPRAZOLE 40 MG TABLET PO SCH (08:50)
[2018-07-24] MEDS: APIXABAN 5 MG TAB PO SCH ×2 (08:50→20:38)
[2018-07-24] MEDS: ASPIRIN 81 MG PO SCH (08:51)
[2018-07-24] MEDS: CEFEPIME 2 GM in SODIUM CHLORIDE 0.9% 100 ML IVPB SCH ×2 (08:51→21:49)
[2018-07-24] MEDS: DULoxetine HCL 30 MG CAPSULE.DR PO SCH (08:51)
[2018-07-24] MEDS: FLUTICASONE 50MCG/SPRAY NASAL 16GM EA NOSTRIL SCH (08:51)
[2018-07-24] MEDS: MAGNESIUM OXIDE 400 MG TAB PO SCH (08:52)
[2018-07-24] MEDS: HEPARIN SODIUM,PORCINE 5,000 UNIT/ML 1 ML VIAL SQ SCH ×2 (08:52→20:38)
[2018-07-24] MEDS: HYDROcodone/APAP 5-325MG 1 EACH TAB PO PRN ×2 (08:52→17:53)
[2018-07-24] MEDS: LORATADINE 10 MG TAB PO SCH (08:52)
[2018-07-24] MEDS: FUROSEMIDE 40 MG TAB PO SCH ×2 (08:52→20:38)
[2018-07-24 08:58] LABS: ALT 42 U/L (21-72); AST 28 U/L (17-59); Albumin 3.9 g/dL (3.5-5.0); Alkaline Phosphatase 86 U/L (38-126); Anion Gap 8 mmol/L; Blood Urea Nitrogen 23 mg/dL (9-20); Calcium 9.1 mg/dL (8.4-10.2); Carbon Dioxide 27 mmol/L (22-30); Chloride 104 mmol/L (98-107); Glucose 139 mg/dL (74-99); Sodium 139 mmol/L (137-145); Total Bilirubin 0.6 mg/dL (0.2-1.3); Total Protein 6.8 g/dL (6.3-8.2)
--- NOTE | 2018-07-24 09:18 | CONS ---
CONSULTATION DATE OF SERVICE: 07/23/2018 REASON FOR CONSULTATION: Left foot wound and cellulitis. HISTORY OF PRESENT ILLNESS: The patient is a 52-year-old, male who went to my service in this patient who did have a history of left diabetic foot infection, with gangrene of his fifth toe, status post amputation of the fourth and fifth toes. The patient had to have chronic nonhealing of his left foot foot lateral border wound. Unfortunately, the patient is not very compliant with his outpatient wound care visit and usually shows up once every other month. Patient presented to the [facility] with concern for not feeling well. Some discomfort to the left foot. More of a dull, aching pain, 2-3 in the foot and no radiation with some swelling and redness in the foot, was warm to touch. Patient was evaluated at that facility and subsequently has been transferred to the [facility] for further management. The patient did have wound cultures obtained and the patient was started on vancomycin and Zosyn, blood culture obtained currently pending. Infectious Disease was consulted for further recommendation regarding antibiotic therapy. REVIEW OF SYSTEMS: CONSTITUTIONAL: Positive for weakness and chills but denies any fever. EYES: No complaint. ENT: No complaint. RESPIRATORY: No complaint. CARDIOVASCULAR: No complaint. GENITOURINARY No complaint. GASTROINTESTINAL: No complaint. MUSCULOSKELETAL: As per HPI. INTEGUMENT: As per HPI. PSYCHOLOGICAL: No complaint. ENDOCRINE: No complaint. NEUROLOGIC: No complaint. PAST MEDICAL HISTORY: Insulin-dependent diabetes mellitus, left diabetic foot infection Venegas stage IV, hypertension, hyperlipidemia, arrhythmias, osteomyelitis left foot. PAST SURGICAL HISTORY: ICD placement, cholecystectomy, of left fourth and fifth toe. SOCIAL HISTORY: Remote history of smoking, no drinking or drug use. FAMILY HISTORY: No pertinent findings noticed. ALLERGIES: No known drug allergies. MEDICATIONS: Currently include the patient is on Tylenol, [place], Xanax, Eliquis, Abilify, aspirin, Lipitor, Lovenox, Coreg, Cymbalta, fenofibrate, Lasix, heparin, Dilaudid, NovoLog, Levemir, Claritin, Glucophage, Narcan, Nitrostat, Zosyn, Restoril, vancomycin 20/50 q. 12 hour. PHYSICAL EXAMINATION: Blood pressure is 105/63, pulse of 93,. temperature 97.8. He is 98% on room air. General description is an middle-aged male lying in bed in no distress. No tachypnea or accessory muscle for respiration use. HEENT: Shows no pallor or scleral icterus. Oral mucosa is dry. No pharyngeal erythema or thrush. NECK: trachea central, no thyromegaly. LUNGS: Unlabored breathing, clear to auscultation anteriorly. No wheeze or crackle. HEART: S1, S2. Regular rate and rhythm. ABDOMEN: Soft, no tenderness, no guarding or rigidity. EXTREMITIES: No edema of the feet. Examination of the left foot lateral border wound with no slough tissue, minimal swelling, slightly warm to touch, minimal drainage, but no foul smelling. NEUROLOGIC: The patient is awake, alert, oriented, mood and affect normal. LABS: BUN of 23, creatinine 0.97. Wound and blood culture obtained currently pending. DIAGNOSTIC IMPRESSION AND PLAN: Patient with admission to the hospital with generalized not feeling well. Some erythema, swelling, and redness to the left foot with concern for left diabetic foot wound with secondary infection in this patient who did have previous history both pseudomonas , staph aureus infection. Could be either of them and more likely is a superficial infection, less likely deep infection such as osteomyelitis. PLAN: 1. Vancomycin, pharmacy to dose target of 15 while watching his kidney function closely. 2. Will continue the Zosyn to decrease the risk of nephrotoxicity seated with likely use and add cefepime 2 g q.12 hours for the gram-negative component. 3. Will check a sed. rate and CRP and the redness in the condition. May order further workup to rule out any deep infection. 4. Local would care with Aquacel Silver to be changed q.24 for the average amount of drainage. 5. We will follow his clinical condition and cultures to further adjust medication if need. Thank you for this consultation. We will follow this patient along with you. All his questions and concerns were answered. MMODL / IJN: [id number] /
[2018-07-24 11:07] LABS: C Reactive Protein 6.3 mg/L (<10.0)
[2018-07-24 11:54] LABS: Glucose,Whole Blood 172 mg/dL (75-99)
[2018-07-24 12:19] LABS: Erythrocyte Sedimentation Rate 17 mm/hr (0-15)
--- NOTE | 2018-07-24 14:24 | PN ---
PROGRESS NOTE DATE OF SERVICE: 07/24/2018 REASON FOR FOLLOWUP: Left diabetic foot wound with secondary cellulitis. INTERVAL HISTORY: The patient is currently afebrile. The patient is breathing comfortably, left leg did have minimal warmth and swelling, no redness. Still has slight drainage from his left lateral leg wound. The patient denies having any chest pain or shortness of breath or cough. PHYSICAL EXAMINATION: Blood pressure 104/61 with a pulse of 81, temperature 98, he is 98% on room air. General description is a middle-aged male, lying in bed in no distress. RESPIRATORY SYSTEM: Unlabored breathing, clear to auscultation anteriorly. HEART: S1, S2. Regular rate and rhythm. ABDOMEN: Soft, no tenderness. The left lateral foot wound is dressed with minimal drainage on the dressing. Minimal warmth to the left leg. No redness. LABS: Hemoglobin 13.1, white count of 6.4, earlier 17. CMP was normal. Wound cultures with gram-negative bacilli. DIAGNOSTIC IMPRESSION AND PLAN: Patient with left foot diabetic foot wound with secondary cellulitis, culture with gram- negative bacilli. Will keep the patient on cefepime while waiting for the final ID. If no gram positive, vancomycin will be discontinued. The surgeon might discharge meropenem on the culture report, more likely oral antibiotic. Local wound care with Aquacel Silver dressing. Continue supportive care. MMODL / IJN: [id number] /
[2018-07-24 17:23] LABS: Glucose,Whole Blood 152 mg/dL (75-99)
[2018-07-24 20:35] LABS: Glucose,Whole Blood 148 mg/dL (75-99)
[2018-07-24] MEDS: ATORVASTATIN 80 MG TAB PO SCH (20:38)
[2018-07-24] MEDS: INSULIN DETEMIR (LEVEMIR) 100 UNIT/ML SYR SQ SCH (20:39)
[2018-07-24] MEDS: NIACIN TR 500 MG CAPLET PO SCH (20:40)
[2018-07-25] MEDS: HYDROcodone/APAP 5-325MG 1 EACH TAB PO PRN ×4 (00:42→20:01)
[2018-07-25] MEDS: SODIUM CHLORIDE 0.9% 1,000 ML IV SCH (01:25)
[2018-07-25] MEDS ORDERED: VANCOMYCIN TROUGH DUE 1 EACH MISC MISCELLANE ONE (02:00)
[2018-07-25] MEDS: VANCOMYCIN 1,750 MG in SODIUM CHLORIDE 0.9% 500 ML 500 ML IVPB SCH ×2 (03:23→15:04)
[2018-07-25 07:30] LABS: Glucose,Whole Blood 99 mg/dL (75-99)
[2018-07-25 08:19] LABS: Anion Gap 9 mmol/L; Blood Urea Nitrogen 24 mg/dL (9-20); Calcium 8.9 mg/dL (8.4-10.2); Carbon Dioxide 27 mmol/L (22-30); Chloride 103 mmol/L (98-107); Glucose 131 mg/dL (74-99); Potassium 4.1 mmol/L (3.5-5.1); Sodium 139 mmol/L (137-145)
[2018-07-25] MEDS: FENOFIBRATE 160 MG TAB PO SCH (10:26)
[2018-07-25] MEDS: CARVEDILOL 3.125 MG TAB PO SCH ×2 (10:26→17:21)
[2018-07-25] MEDS: INSULIN ASPART (NovoLOG) 100 UNIT/ML VIAL SQ SCH ×4 (10:27→20:57)
[2018-07-25] MEDS: metFORMIN 500 MG TAB PO SCH ×2 (10:27→17:21)
[2018-07-25] MEDS: APIXABAN 5 MG TAB PO SCH ×2 (10:28→20:51)
[2018-07-25] MEDS: PANTOPRAZOLE 40 MG TABLET PO SCH (10:28)
[2018-07-25] MEDS: ASPIRIN 81 MG PO SCH (10:29)
[2018-07-25] MEDS: ARIPiprazole 5 MG TAB PO SCH (10:29)
[2018-07-25] MEDS: FLUTICASONE 50MCG/SPRAY NASAL 16GM EA NOSTRIL SCH (10:35)
[2018-07-25] MEDS: FUROSEMIDE 40 MG TAB PO SCH ×2 (10:35→20:51)
[2018-07-25] MEDS: DULoxetine HCL 30 MG CAPSULE.DR PO SCH (10:35)
[2018-07-25] MEDS: MAGNESIUM OXIDE 400 MG TAB PO SCH (10:36)
[2018-07-25] MEDS: HEPARIN SODIUM,PORCINE 5,000 UNIT/ML 1 ML VIAL SQ SCH ×2 (10:36→20:48)
[2018-07-25] MEDS: LORATADINE 10 MG TAB PO SCH (10:36)
[2018-07-25] MEDS: CEFEPIME 2 GM in SODIUM CHLORIDE 0.9% 100 ML IVPB SCH ×2 (10:43→20:45)
[2018-07-25 12:01] LABS: Glucose,Whole Blood 175 mg/dL (75-99)
--- NOTE | 2018-07-25 14:37 | PN ---
PROGRESS NOTE DATE OF SERVICE: 07/25/2018 REASON FOR FOLLOWUP: Left lateral diabetic foot wound with secondary cellulitis. INTERVAL HISTORY: The patient is currently afebrile. The patient is breathing comfortably, feeling slightly better. Denies having any chest pain. No cough, no abdominal pain, pain to the left foot wound area or any leg pain. PHYSICAL EXAMINATION: Blood pressure is 92/54, pulse of 76, temperature 97.4. He is 98% on room air. General description is a middle-aged male, lying in bed in no distress. RESPIRATORY SYSTEM: Unlabored breathing, clear to auscultation anteriorly. HEART: S1, S2. Regular rate and rhythm. ABDOMEN: Soft, no tenderness. LABS: BUN of 24, creatinine 0.91. Vanco trough is slightly elevated at 18.8. Wound culture did show Enterobacter cloacae, serratia marcescens and . DIAGNOSTIC IMPRESSION AND PLAN: Patient with left diabetic foot infection. Blood culture x2, multiple pathogen. Patient is currently covered with cefepime and vancomycin to continue for now. While waiting for the sensitivities on the Staph aureus. Will check his outpatient IV antibiotic coverage. Continue local wound care with Aquacel Silver. Continue supportive care. MMODL / IJN: [id number] /
[2018-07-25 17:07] LABS: Glucose,Whole Blood 159 mg/dL (75-99)
[2018-07-25 20:06] LABS: Glucose,Whole Blood 129 mg/dL (75-99)
[2018-07-25] MEDS: INSULIN DETEMIR (LEVEMIR) 100 UNIT/ML SYR SQ SCH (20:49)
[2018-07-25] MEDS: NIACIN TR 500 MG CAPLET PO SCH (20:51)
[2018-07-25] MEDS: ATORVASTATIN 80 MG TAB PO SCH (20:51)
--- NOTE | 2018-07-26 00:43 | P.PN ---
Subjective Progress Note Date: 07/24/18 Principal diagnosis: Diabetic left foot ulcer Patient is a 52-year-old male with a known history of with stent placement, coronary artery bypass Four-vessel, cardiomyopathy AICD placement, diabetes type 2 insulin-dependent, hypertension, hyperlipidemia and history of left fourth and fifth toe accommodation and diabetic foot ulcer came to the hospital with worsening leg pain as well infection. Patient was initially presented to [facility] and was transferred to [facility] for wound care and ID evaluation. Patient is currently complaining of left foot pain.. No fever no chills. No chest pain or shortness of breath. Patient is to follow with wound care clinic. Patient is currently started on vancomycin and Zosyn. ID was consulted. chest x-ray showed no acute pulmonary process 07/24/2018 Patient denied any complains of chest pain or shortness of breath. Continued on antibiotics in the form of cefepime for left cavity foot ulcer. Wound cultures are growing gram-negative bacilli. Currently on cefepime. Vancomycin has been discontinued. ID is following. Continued on wound care. Continue with insulin sliding scale and current insulin regimen. No fever no chills. No nausea vomiting or abdominal pain. Current medications reviewed. Objective - Vital Signs Vital signs: Vital Signs Temp 98 F 07/24/18 15:00 Pulse 85 07/24/18 15:00 Resp 16 07/24/18 15:00 BP 104/65 07/24/18 15:00 Pulse Ox 94 L 07/24/18 15:00 Intake & Output 07/23/18 07/24/18 07/24/18 18:59 06:59 18:59 Intake Total 1240 1200 Balance 1240 1200 Weight 112.718 kg 110.5 kg Intake: Intake, IV Titration 240 600 Amount Piperacillin-Tazobactam 3 100 100 .375 gm In Sodium Chloride 0.9% 100 ml @ 25 mls/hr IVPB Q8H [facility] Rx#: [id number] Sodium Chloride 0.9% 1, 140 000 ml @ 20 mls/hr IV . Q24H [facility] Rx#:[id number] Vancomycin 1,750 mg In 500 Sodium Chloride 0.9% 500 ml 500 ml @ 167 mls/hr IVPB Q12H [facility] Rx#: [id number] Oral 1000 600 Other: Voiding Method Toilet # Voids 1 # Bowel Movements 1 - Exam PHYSICAL EXAMINATION: Patient is lying in the bed comfortably, no acute distress, awake alert and oriented.. HEENT: Normocephalic. Neck is supple. Pupils reactive. Nostrils clear. Oral ca vity is moist. Ears reveal no drainage. Neck reveals no JVD, carotid bruits, or thyromegaly. CHEST EXAMINATION: Trachea is central. Symmetrical expansion. Bibasilar diminished air entry. Lung ann clear to auscultation and percussion. CARDIAC: Normal S1, S2 with no gallops. No murmurs ABDOMEN: Soft. Bowel sounds normal. No organomegaly. No abdominal bruits. Extremities: reveal no edema. Left foot fourth and fifth toe amputation. foot ulcer with discharge.. No clubbing or cyanosis Neurologically awake, alert, oriented x3 with well-coordinated movements. No focal deficits noted Skin: No rash or skin lesions. Psychiatric: Coperative. Nonsuicidal Musculoskeletal: No joint swelling or deformity. Normal range of motion. - Labs CBC & Chem 7: 07/24/18 08:15 07/25/18 07:29 Labs: Abnormal Lab Results - Last 24 Hours (Table) 07/23/18 07/23/18 07/24/18 Range/Units 16:39 20:50 07:58 Plt Count (150-450) k/uL ESR (0-15) mm/hr BUN (9-20) mg/dL Glucose (74-99) mg/dL POC Glucose (mg/dL) 210 H 154 H 119 H (75-99) mg/dL 07/24/18 07/24/18 07/24/18 Range/Units 08:15 08:15 11:27 Plt Count 146 L (150-450) k/uL ESR 17 H (0-15) mm/hr BUN 23 H (9-20) mg/dL Glucose 139 H (74-99) mg/dL POC Glucose (mg/dL) 172 H (75-99) mg/dL Microbiology - Last 24 Hours (Table) 07/23/18 02:00 Gram Stain - Preliminary Foot - Left Wound Culture - Preliminary Gram Neg Bacilli Gram Neg Bacilli#2 07/23/18 01:21 Blood Culture - Preliminary Blood No Growth after 24 hours Assessment and Plan Assessment: Left diabetic foot ulcer with surrounding cellulitis.. Coronary artery disease with history of CABG and stent placement Ischemic cardio myopathy status post AICD Diabetes type 2 insulin-dependent Hypertension Hyperlipidemia GERD Depression Previous history of smoking Plan: Patient be continued on antibiotics in the form of cefepime. ID is following.. Wound cultures were sent. Continue with insulin dosing as per home regimen. Continue With home medications. Further recommendations based on the clinical course. Time with Patient: Greater than 30
--- NOTE | 2018-07-26 00:45 | P.PN ---
Subjective Progress Note Date: 07/25/18 Principal diagnosis: Diabetic left foot ulcer Patient is a 52-year-old male with a known history of with stent placement, coronary artery bypass Four-vessel, cardiomyopathy AICD placement, diabetes type 2 insulin-dependent, hypertension, hyperlipidemia and history of left fourth and fifth toe accommodation and diabetic foot ulcer came to the hospital with worsening leg pain as well infection. Patient was initially presented to [facility] and was transferred to [facility] for wound care and ID evaluation. Patient is currently complaining of left foot pain.. No fever no chills. No chest pain or shortness of breath. Patient is to follow with wound care clinic. Patient is currently started on vancomycin and Zosyn. ID was consulted. chest x-ray showed no acute pulmonary process 07/24/2018 Patient denied any complains of chest pain or shortness of breath. Continued on antibiotics in the form of cefepime for left cavity foot ulcer. Wound cultures are growing gram-negative bacilli. Currently on cefepime. Vancomycin has been discontinued. ID is following. Continued on wound care. Continue with insulin sliding scale and current insulin regimen. No fever no chills. No nausea vomiting or abdominal pain. 07/25/2018 Patient denied any complaints of chest pain or shortness of breath. No fever no chills. Continued on antibiotics of vancomycin and cefepime. Wound cultures growing Enterobacter, Serratia and presumptive staph. ID is following. Follow with final culture report and antibiotic recommendations. Otherwise blood sugar is better controlled. No other acute overnight issues. Current medications reviewed. Objective - Vital Signs Vital signs: Vital Signs Temp 98.9 F 07/25/18 19:16 Pulse 86 07/25/18 19:16 Resp 20 07/25/18 19:16 BP 103/68 07/25/18 19:16 Pulse Ox 98 07/25/18 19:16 Intake & Output 07/25/18 07/25/18 07/26/18 06:59 18:59 06:59 Intake Total 740 Balance 740 Weight 110.2 kg Intake: Intake, IV Titration 740 Amount Sodium Chloride 0.9% 1, 240 000 ml @ 20 mls/hr IV . Q24H [facility] Rx#:[id number] Vancomycin 1,750 mg In 500 Sodium Chloride 0.9% 500 ml 500 ml @ 167 mls/hr IVPB Q12H [facility] Rx#: [id number] Other: Voiding Method Toilet # Voids 1 3 - Exam PHYSICAL EXAMINATION: Patient is lying in the bed comfortably, no acute distress, awake alert and oriented.. HEENT: Normocephalic. Neck is supple. Pupils reactive. Nostrils clear. Oral cavity is moist. Ears reveal no drainage. Neck reveals no JVD, carotid bruits, or thyromegaly. CHEST EXAMINATION: Trachea is central. Symmetrical expansion. No wheezing. Lung ann clear to auscultation and percussion. CARDIAC: Normal S1, S2 with no gallops. No murmurs ABDOMEN: Soft. Bowel sounds normal. No organomegaly. No abdominal bruits. Extremities: reveal no edema. Left foot fourth and fifth toe amputation. foot ulcer with no discharge.. No clubbing or cyanosis Neurologically awake, alert, oriented x3 with well-coordinated movements. No focal deficits noted Skin: No rash or skin lesions. Psychiatric: Coperative. Nonsuicidal Musculoskeletal: No joint swelling or deformity. Normal range of motion. - Labs CBC & Chem 7: 07/24/18 08:15 07/25/18 07:29 Labs: Abnormal Lab Results - Last 24 Hours (Table) 07/25/18 07/25/18 07/25/18 Range/Units 07:29 11:50 16:55 BUN 24 H (9-20) mg/dL Glucose 131 H (74-99) mg/dL POC Glucose (mg/dL) 175 H 159 H (75-99) mg/dL 07/25/18 Range/Units 20:05 BUN (9-20) mg/dL Glucose (74-99) mg/dL POC Glucose (mg/dL) 129 H (75-99) mg/dL Microbiology - Last 24 Hours (Table) 07/23/18 02:00 Gram Stain - Preliminary Foot - Left Wound Culture - Preliminary Enterobacter cloacae Serratia marcescens Presumptive Staph aureus 07/23/18 01:21 Blood Culture - Preliminary Blood No Growth after 48 hours Assessment and Plan Assessment: Left diabetic foot ulcer with surrounding cellulitis.. Coronary artery disease with history of CABG and stent placement Ischemic cardio myopathy status post AICD Diabetes type 2 insulin-dependent Hypertension Hyperlipidemia GERD Depression Previous history of smoking Plan: Patient be continued on antibiotics in the form of cefepime and vancomycin. ID is following.. Wound cultures were sent. Continue with insulin dosing as per home regimen. Continue With home medications. Further recommendations based on the clinical course. Time with Patient: Greater than 30
[2018-07-26] MEDS: SODIUM CHLORIDE 0.9% 1,000 ML IV SCH (00:53)
[2018-07-26 02:11] LABS: Glucose,Whole Blood 148 mg/dL (75-99)
[2018-07-26] MEDS: VANCOMYCIN 1,750 MG in SODIUM CHLORIDE 0.9% 500 ML 500 ML IVPB SCH ×2 (02:52→15:59)
[2018-07-26] MEDS ORDERED: INSULIN DETEMIR (LEVEMIR) 100 UNIT/ML SYR SQ SCH (06:16)
[2018-07-26 07:09] LABS: Glucose,Whole Blood 134 mg/dL (75-99)
[2018-07-26 08:39] LABS: Anion Gap 8 mmol/L; Blood Urea Nitrogen 22 mg/dL (9-20); Calcium 9.1 mg/dL (8.4-10.2); Carbon Dioxide 29 mmol/L (22-30); Chloride 102 mmol/L (98-107); Glucose 148 mg/dL (74-99); Potassium 3.7 mmol/L (3.5-5.1); Sodium 139 mmol/L (137-145)
[2018-07-26] MEDS: CEFEPIME 2 GM in SODIUM CHLORIDE 0.9% 100 ML IVPB SCH (09:40)
[2018-07-26] MEDS: ASPIRIN 81 MG PO SCH (09:43)
[2018-07-26] MEDS: PANTOPRAZOLE 40 MG TABLET PO SCH (09:43)
[2018-07-26] MEDS: FLUTICASONE 50MCG/SPRAY NASAL 16GM EA NOSTRIL SCH (09:43)
[2018-07-26] MEDS: HEPARIN SODIUM,PORCINE 5,000 UNIT/ML 1 ML VIAL SQ SCH (09:43)
[2018-07-26] MEDS: MAGNESIUM OXIDE 400 MG TAB PO SCH ×2 (09:43→09:44)
[2018-07-26] MEDS: FENOFIBRATE 160 MG TAB PO SCH (09:44)
[2018-07-26] MEDS: CARVEDILOL 3.125 MG TAB PO SCH ×2 (09:44→18:02)
[2018-07-26] MEDS: APIXABAN 5 MG TAB PO SCH (09:44)
[2018-07-26] MEDS: metFORMIN 500 MG TAB PO SCH ×2 (09:44→18:02)
[2018-07-26] MEDS: LORATADINE 10 MG TAB PO SCH (09:44)
[2018-07-26] MEDS: FUROSEMIDE 40 MG TAB PO SCH (09:44)
[2018-07-26] MEDS: ARIPiprazole 5 MG TAB PO SCH (09:45)
[2018-07-26] MEDS: DULoxetine HCL 30 MG CAPSULE.DR PO SCH (09:45)
[2018-07-26] MEDS: HYDROcodone/APAP 5-325MG 1 EACH TAB PO PRN (09:46)
[2018-07-26] MEDS: INSULIN ASPART (NovoLOG) 100 UNIT/ML VIAL SQ SCH ×3 (10:03→17:24)
[2018-07-26 12:02] LABS: Glucose,Whole Blood 161 mg/dL (75-99)
--- NOTE | 2018-07-26 15:35 | PN ---
PROGRESS NOTE DATE OF SERVICE: 07/26/2018 REASON FOR FOLLOWUP: Left diabetic foot wound with secondary cellulitis. INTERVAL HISTORY: The patient is currently afebrile. He is feeling better. Breathing comfortably. Denies having any chest pain or abdominal pain or any worsening pain to the left foot area. PHYSICAL EXAMINATION: Blood pressure 102/61 with a pulse of 70, respiration 18, temperature 97.8. He is 94% on room air. General description is a middle-aged male, lying in bed in no distress. RESPIRATORY SYSTEM: Unlabored breathing, clear to auscultation anteriorly. HEART: S1, S2. Regular rate and rhythm. ABDOMEN: Soft, no tenderness. EXTREMITIES: Left foot wound with minimal drainage on the dressing. LABS: BUN of 22, creatinine 0.88. The left foot culture with Enterobacter cloaca. was as MSSA. The blood culture has been negative. DIAGNOSTIC IMPRESSION AND PLAN: Patient with left diabetic foot wound with secondary cellulitis culture with multiple pathogen. Unfortunately, who are not able to use Cipro that would have been orally as the patient had Cymbalta with drug interaction and risk of QT prolongation, hence will [QAMARKER] and continue with cefepime 2 g to cover for another 2 weeks. Local wound care with follow up in the [facility] regularly who will help heal this wound and prevent recurrent infection. There questions were answered. Prescriptions were written. MMODL / IJN: [id number] /
[2018-07-26 15:44] VITALS: PULSE 87; TEMP 97.7
--- NOTE | 2018-07-26 16:34 | P.PN ---
Subjective Progress Note Date: 07/26/18 Principal diagnosis: Infected left diabetic foot ulcer/cellulitis 52-year-old male with a known history of with stent placement, coronary artery bypass Four-vessel, cardiomyopathy AICD placement, diabetes type 2 insulin- dependent, hypertension, hyperlipidemia and history of left fourth and fifth toe accommodation and diabetic foot ulcer came to the hospital with worsening leg p ain as well infection. Patient was initially presented to [facility] and was transferred to [facility] for wound care and ID evaluation. Patient is currently complaining of left foot pain.. No fever no chills. No chest pain or shortness of breath. Patient is to follow with wound care clinic. Patient is currently started on vancomycin and Zosyn. ID was consulted. chest x-ray showed no acute pulmonary process 07/25/2018 Patient denied any complaints of chest pain or shortness of breath. No fever no chills. Continued on antibiotics of vancomycin and cefepime. Wound cultures growing Enterobacter, Serratia and presumptive staph. ID is following. Follow with final culture report and antibiotic recommendations. Otherwise blood sugar is better controlled. No other acute overnight issues. Objective - Vital Signs Vital signs: Vital Signs Temp 97.8 F 07/26/18 07:00 Pulse 78 07/26/18 07:00 Resp 14 07/26/18 01:00 BP 102/61 07/26/18 07:00 Pulse Ox 94 L 07/26/18 07:00 Intake & Output 07/25/18 07/26/18 07/26/18 18:59 06:59 18:59 Intake Total 860 Balance 860 Intake: Intake, IV Titration 860 Amount Cefepime 2 gm In Sodium 100 Chloride 0.9% 100 ml @ 200 mls/hr IVPB Q12HR [facility] Rx#:[id number] Sodium Chloride 0.9% 1, 260 000 ml @ 20 mls/hr IV . Q24H [facility] Rx#:[id number] Vancomycin 1,750 mg In 500 Sodium Chloride 0.9% 500 ml 500 ml @ 167 mls/hr IVPB Q12H [facility] Rx#: [id number] Other: Voiding Method Toilet Toilet # Voids 3 2 - Exam Patient is lying in the bed comfortably, no acute distress, awake alert and oriented.. HEENT: Normocephalic. Neck is supple. Pupils reactive. Nostrils clear. Oral cavity is moist. Ears reveal no drainage. Neck reveals no JVD, carotid bruits, or thyromegaly. CHEST EXAMINATION: Trachea is central. Symmetrical expansion. No wheezing. Lung ann clear to auscultation and percussion. CARDIAC: Normal S1, S2 with no gallops. No murmurs ABDOMEN: Soft. Bowel sounds normal. No organomegaly. No abdominal bruits. Extremities: reveal no edema. Left foot fourth and fifth toe amputation. foot ulcer with no discharge.. No clubbing or cyanosis Neurologically awake, alert, oriented x3 with well-coordinated movements. No focal deficits noted Skin: No rash or skin lesions. - Labs CBC & Chem 7: 07/24/18 08:15 07/26/18 07:26 Labs: Abnormal Lab Results - Last 24 Hours (Table) 07/25/18 07/25/18 07/26/18 Range/Units 16:55 20:05 02:09 BUN (9-20) mg/dL Glucose (74-99) mg/dL POC Glucose (mg/dL) 159 H 129 H 148 H (75-99) mg/dL 07/26/18 07/26/18 07/26/18 Range/Units 06:57 07:26 11:50 BUN 22 H (9-20) mg/dL Glucose 148 H (74-99) mg/dL POC Glucose (mg/dL) 134 H 161 H (75-99) mg/dL Microbiology - Last 24 Hours (Table) 07/23/18 02:00 Gram Stain - Final Foot - Left Wound Culture - Final Enterobacter cloacae Serratia marcescens Staphylococcus aureus 07/23/18 01:21 Blood Culture - Preliminary Blood No Growth after 72 hours Assessment and Plan Assessment: Left diabetic foot ulcer with surrounding cellulitis.. Coronary artery disease with history of CABG and stent placement Ischemic cardio myopathy status post AICD Diabetes type 2 insulin-dependent Hypertension Hyperlipidemia GERD Depression Previous history of smoking Plan: Patient be continued on antibiotics in the form of cefepime and vancomycin. ID is following.. Wound cultures were sent. Continue with insulin dosing as per home regimen. Continue With home medications. Further recommendations based on the clinical course.
--- NOTE | 2018-07-26 16:37 | P.DS ---
Providers Date of admission: 07/22/18 23:40 Attending physician: Scarlet Mckeon Consults: 07/23/18 00:35 Consult Physician Routine Consulting Provider: Que Winn Consult Reason/Comments: cellulitis Do you want consulting provider notified?: Yes Primary care physician: Stated None Hospital Course: 52-year-old male with a known history of with stent placement, coronary artery bypass Four-vessel, cardiomyopathy AICD placement, diabetes type 2 insulin- dependent, hypertension, hyperlipidemia and history of left fourth and fifth toe accommodation and diabetic foot ulcer came to the hospital with worsening leg pain as well infection. Patient was initially presented to [facility] and was transferred to [facility] for wound care and ID evaluation. Patient is currently complaining of left foot pain.. No fever no chills. No chest pain or shortness of breath. Patient is to follow with wound care clinic. Patient is currently started on vancomycin and Zosyn. ID was consulted. chest x-ray showed no acute pulmonary process 07/25/2018 Patient denied any complaints of chest pain or shortness of breath. No fever no chills. Continued on antibiotics of vancomycin and cefepime. Wound cultures growing Enterobacter, Serratia and presumptive staph. ID is following. Follow with final culture report and antibiotic recommendations. Otherwise blood sugar is better controlled. No other acute overnight issues. Patient remains on IV cefepime 2 g every 12 hours; patient has been seen by ID and unfortunately Cipro cannot be used as oral medication due to patient being on Cymbalta causing a drug interaction with increased risk of QT from prolongation; ID recommending to continue IV cefepime 2 g every 12 hours for 2 weeks; case management is endorsed and this has been arranged at [facility]; patient will be discharged home in a stable condition Plan - Discharge Summary Discharge Rx Participant: Yes New Discharge Prescriptions: New Cefepime HCl [Maxipime] 2 gm IV Q12H #28 vial DULoxetine HCL [Cymbalta] 90 mg PO DAILY capsule. Cefepime HCl [Maxipime] 2 gm IV Q12H 14 Days #28 vial Continue Gemfibrozil [Lopid] 600 mg PO AC-BID Niacin [Niacin ER] 1,000 mg PO HS Counce-3 Fatty Acids [Counce-3] 1 cap PO BID Fluticasone Nasal [place] [Flonase Nasal [place]] 1 spr EA NOSTRIL DAILY Atorvastatin [Lipitor] 80 mg PO HS #30 tab Nitroglycerin Sl Tabs [Nitrostat] 0.4 mg SUBLINGUAL Q5M PRN #25 tab PRN Reason: Chest Pain Pantoprazole [Protonix] 40 mg PO AC-BRKFST #30 tablet. Apixaban [Eliquis] 5 mg PO BID Loratadine [Claritin] 10 mg PO DAILY Carvedilol [Coreg] 3.125 mg PO BID Insulin Aspart [NovoLOG Flexpen] 5 units SQ AC-TID PRN PRN Reason: Blood Sugar - High Furosemide [Lasix] 40 mg PO BID Aspirin EC [Ecotrin Low Dose] 81 mg PO DAILY ARIPiprazole [Abilify] 5 mg PO DAILY Magnesium Oxide [Mag-Ox] 400 mg PO BID Acetaminophen Tab [Tylenol] 500 mg PO Q6HR PRN tab PRN Reason: Fever and/ or Mild Pain metFORMIN HCL [Glucophage] 1,000 mg PO BID Lisinopril [Zestril] 2.5 mg PO DAILY Insulin Glargine,Hum.rec.anlog [Basaglar Kwikpen U-100] 24 unit SQ HS@2300 HYDROcodone/APAP 7.5-325MG [[place] 7.5-325] 1 tab PO TID PRN PRN Reason: Pain DULoxetine HCL [Cymbalta] 120 mg PO DAILY Discharge Medication List Gemfibrozil [Lopid] 600 mg PO AC-BID 07/06/14 [History] Fluticasone Nasal [place] [Flonase Nasal [place]] 1 spr EA NOSTRIL DAILY 08/31/15 [History] Niacin [Niacin ER] 1,000 mg PO HS 08/31/15 [History] Counce-3 Fatty Acids [Counce-3] 1 cap PO BID 08/31/15 [History] Atorvastatin [Lipitor] 80 mg PO HS #30 tab 09/04/15 [Rx] Nitroglycerin Sl Tabs [Nitrostat] 0.4 mg SUBLINGUAL Q5M PRN #25 tab 09/04/15 [Rx] Pantoprazole [Protonix] 40 mg PO AC-BRKFST #30 tablet. 09/04/15 [Rx] Apixaban [Eliquis] 5 mg PO BID 02/13/17 [History] Carvedilol [Coreg] 3.125 mg PO BID 02/13/17 [History] Insulin Aspart [NovoLOG Flexpen] 5 units SQ AC-TID PRN 02/13/17 [History] Loratadine [Claritin] 10 mg PO DAILY 02/13/17 [History] ARIPiprazole [Abilify] 5 mg PO DAILY 11/16/17 [History] Aspirin EC [Ecotrin Low Dose] 81 mg PO DAILY 11/16/17 [History] Furosemide [Lasix] 40 mg PO BID 11/16/17 [History] Magnesium Oxide [Mag-Ox] 400 mg PO BID 05/06/18 [History] Acetaminophen Tab [Tylenol] 500 mg PO Q6HR PRN tab 05/09/18 [Rx] DULoxetine HCL [Cymbalta] 120 mg PO DAILY 07/23/18 [History] HYDROcodone/APAP 7.5-325MG [[place] 7.5-325] 1 tab PO TID PRN 07/23/18 [History] Insulin Glargine,Hum.rec.anlog [Basaglar Kwikpen U-100] 24 unit SQ HS@2300 07/23/18 [History] Lisinopril [Zestril] 2.5 mg PO DAILY 07/23/18 [History] metFORMIN HCL [Glucophage] 1,000 mg PO BID 07/23/18 [History] Cefepime HCl [Maxipime] 2 gm IV Q12H #28 vial 07/26/18 [Rx] Cefepime HCl [Maxipime] 2 gm IV Q12H 14 Days #28 vial 07/26/18 [Rx] DULoxetine HCL [Cymbalta] 90 mg PO DAILY capsule. 07/26/18 [Rx] Patient Instructions/Handouts: Cellulitis (DC) Activity/Diet/Wound Care/Special Instructions: [facility] - [phone] - [id number] [id number]: Patient will go to [facility] for IV infusions twice daily for two weeks. Please show up for first dose between 8am and 9am on 07/27/18 and 8pm and 9pm for second dose. Follow this pattern every day until antibiotics therapy is complete. Discharge Disposition: HOME SELF-CARE
[2018-07-26 17:04] LABS: Glucose,Whole Blood 143 mg/dL (75-99)
[2018-07-26 18:38] VITALS: BP 105/63; RESP 19
[2018-07-26 20:04] LABS: Hemoglobin A1C 6.6 % (4.0-6.0)
[2018-07-27] MEDS ORDERED: VANCOMYCIN TROUGH DUE 1 EACH MISC MISCELLANE ONE (14:00)
== END 2018-07-26 19:31 | disposition home or self-care (01) | DRG 638 ==
LOC: 4SSUR 23:40
PROVIDERS: ADMIT Hospitalist; ATTEND Hospitalist
DX: E11.628 Type 2 diabetes mellitus with other skin complications (principal); L03.116 Cellulitis of left lower limb; L97.529 Non-pressure chronic ulcer of other part of left foot with unspecified severity; I11.0 Hypertensive heart disease with heart failure; I50.9 Heart failure, unspecified; E11.621 Type 2 diabetes mellitus with foot ulcer; I25.5 Ischemic cardiomyopathy; I25.10 Atherosclerotic heart disease of native coronary artery without angina pectoris; E78.5 Hyperlipidemia, unspecified; K21.9 Gastro-esophageal reflux disease without esophagitis; F32.9 Major depressive disorder, single episode, unspecified; Z79.01 Long term (current) use of anticoagulants; Z79.82 Long term (current) use of aspirin; Z79.4 Long term (current) use of insulin; Z79.899 Other long term (current) drug therapy; Z90.49 Acquired absence of other specified parts of digestive tract; Z95.1 Presence of aortocoronary bypass graft; Z95.5 Presence of coronary angioplasty implant and graft; Z95.810 Presence of automatic (implantable) cardiac defibrillator; Z89.422 Acquired absence of other left toe(s); Z87.891 Personal history of nicotine dependence; Z83.3 Family history of diabetes mellitus; Z80.0 Family history of malignant neoplasm of digestive organs
CPT/HCPCS: 71046; 80048; 80053; 80202; 83036; 85025; 85652; 86140; 87040; 87070; 87077; 87186; 87205; 93005

== ENCOUNTER 2018-10-23 15:19 | Inpatient (IN) | payer MEDICARE ==
[2018-10-23 17:51] LABS: Glucose,Whole Blood 134 mg/dL (75-99)
[2018-10-23] MEDS ORDERED: HYDROmorphone 0.5 MG/0.5 ML SYRINGE IVP PRN (17:59)
[2018-10-23] MEDS ORDERED: VANCOMYCIN IV PER PHARMACY 1 EACH MISC MISCELLANE PRN (18:24)
[2018-10-23] MEDS ORDERED: NITROGLYCERIN SL TABS 0.4 MG TAB SUBLINGUAL PRN (20:19)
[2018-10-23] MEDS: VANCOMYCIN 1,750 MG in SODIUM CHLORIDE 0.9% 500 ML 500 ML IVPB SCH (20:33)
[2018-10-23 20:58] LABS: Glucose,Whole Blood 240 mg/dL (75-99)
[2018-10-23] MEDS: ATORVASTATIN 80 MG TAB PO SCH (22:37)
[2018-10-23] MEDS: MAGNESIUM OXIDE 400 MG TAB PO SCH (22:37)
[2018-10-23] MEDS: APIXABAN 5 MG TAB PO SCH (22:37)
[2018-10-23] MEDS: metFORMIN 500 MG TAB PO SCH (22:37)
[2018-10-23] MEDS: CARVEDILOL 3.125 MG TAB PO SCH (22:44)
[2018-10-23] MEDS: INSULIN DETEMIR (LEVEMIR) 100 UNIT/ML SYR SQ SCH (22:44)
[2018-10-23] MEDS: NIACIN TR 500 MG CAPLET PO SCH (22:44)
[2018-10-24 07:07] LABS: Glucose,Whole Blood 82 mg/dL (75-99)
--- NOTE | 2018-10-24 07:25 | P.GSCN ---
History of Present Illness History of present illness: 53-year-old diabetic male patient known to be he had a left foot fourth and fifth toe amputation done by me in the past. Patient developed some wound on the stump side has been admitted for local wound care and IV antibiotic. Patient is under care of infectious disease . Medical history history of diabetes, hypertension, history of 4 coronary artery bypass graft, history of defibrillator Neck examination neck is supple no bruit appreciated Chest good entry both lungs Abdomen soft nontender Vascular examination femorals are palpable bilateral left foot has a amputation done for fourth and fifth toe in the past there is some callus formation and a superficial wound Plan is IV antibiotic we will use OrderDynamicshoney gel and follow with you thank you+ Past Medical History Past Medical History: Coronary Artery Disease (CAD), Heart Failure, Diabetes Mellitus, GERD/Reflux, Hyperlipidemia, Hypertension History of Any Multi-Drug Resistant Organisms: None Reported Past Surgical History: AICD, Cholecystectomy, Coronary Bypass/CABG, Heart Catheterization With Stent, Orthopedic Surgery Additional Past Surgical History / Comment(s): LEFT ROTATOR CUFF REPAIR CABG-4 VESSELS, HEART STENTS X ?2-3 Past Anesthesia/Blood Transfusion Reactions: No Reported Reaction Date of Last Stent Placement:: 2011 APPROX Type of Cardiac Device: AICD Device Placement Date:: July 2014 Past Psychological History: Depression Smoking Status: Never smoker Past Alcohol Use History: None Reported Additional Past Alcohol Use History / Comment(s): QUIT SMOKING APPROX 2007, STARTED SMOKING AT AGE 18 Past Drug Use History: None Reported - Past Family History Mother Family Medical History: Diabetes Mellitus Father Family Medical History: Cancer Additional Family Medical History / Comment(s): LIVER Medications and Allergies Home Medications Medication Instructions Recorded Confirmed Type Gemfibrozil [Lopid] 600 mg PO AC-BID 07/06/14 10/23/18 History Fluticasone Nasal [place] [Flonase 1 spr EA NOSTRIL DAILY 08/31/15 10/23/18 History Nasal [place]] Niacin [Niacin ER] 1,000 mg PO HS 08/31/15 10/23/18 History Atorvastatin [Lipitor] 80 mg PO HS #30 tab 09/04/15 10/23/18 Rx Nitroglycerin Sl Tabs [Nitrostat] 0.4 mg SUBLINGUAL Q5M PRN #25 tab 09/04/15 10/23/18 Rx Pantoprazole [Protonix] 40 mg PO AC-BRKFST #30 tablet. 09/04/15 10/23/18 Rx Apixaban [Eliquis] 5 mg PO BID 02/13/17 10/23/18 History Carvedilol [Coreg] 3.125 mg PO BID 02/13/17 10/23/18 History Loratadine [Claritin] 10 mg PO DAILY 02/13/17 10/23/18 History ARIPiprazole [Abilify] 5 mg PO DAILY 11/16/17 10/23/18 History Aspirin EC [Ecotrin Low Dose] 81 mg PO DAILY 11/16/17 10/23/18 History Furosemide [Lasix] 40 mg PO BID 11/16/17 10/23/18 History Magnesium Oxide [Mag-Ox] 400 mg PO BID 05/06/18 10/23/18 History DULoxetine HCL [Cymbalta] 120 mg PO DAILY 07/23/18 10/23/18 History HYDROcodone/APAP 7.5-325MG [[place] 1 tab PO TID PRN 07/23/18 10/23/18 History 7.5-325] Lisinopril [Zestril] 2.5 mg PO DAILY 07/23/18 10/23/18 History metFORMIN HCL [Glucophage] 1,000 mg PO BID 07/23/18 10/23/18 History Insulin Degludec [Tresiba 42 units SQ HS 10/23/18 10/23/18 History Flextouch U-100] Insulin Lispro [humaLOG Kwikpen] 5 unit SQ AC-BID@1200,1830 10/23/18 10/23/18 History Insulin Lispro [humaLOG Kwikpen] 8 unit SQ AC-BRKFST 10/23/18 10/23/18 History [place]-3 Acid Ethyl Esters [Lovaza] 1 gm PO BID 10/23/18 10/23/18 History Allergies Allergy/AdvReac Type Severity Reaction Status Date / Time No Known Allergies Allergy Verified 10/23/18 18:11 Surgical - Exam Vital Signs Temp Pulse Resp BP Pulse Ox 97.9 F 84 18 107/59 97 10/23/18 17:38 10/23/18 17:38 10/23/18 17:38 10/23/18 17:38 06/19/19 17:38 Results - Labs Abnormal Lab Results - Last 24 Hours (Table) 10/23/18 10/23/18 Range/Units 17:48 20:56 POC Glucose (mg/dL) 134 H 240 H (75-99) mg/dL
[2018-10-24] MEDS: FUROSEMIDE 40 MG TAB PO SCH ×2 (07:39→16:08)
[2018-10-24] MEDS: metFORMIN 500 MG TAB PO SCH ×2 (07:40→21:16)
[2018-10-24] MEDS: FENOFIBRATE 160 MG TAB PO SCH (07:40)
[2018-10-24] MEDS: DULoxetine HCL 60 MG CAPSULE.DR PO SCH (07:40)
[2018-10-24] MEDS: LISINOPRIL 2.5 MG TAB PO SCH (07:40)
[2018-10-24] MEDS: MAGNESIUM OXIDE 400 MG TAB PO SCH ×2 (07:40→21:17)
[2018-10-24] MEDS: CARVEDILOL 3.125 MG TAB PO SCH ×2 (07:40→16:08)
[2018-10-24] MEDS: APIXABAN 5 MG TAB PO SCH ×2 (07:40→21:18)
[2018-10-24] MEDS: PANTOPRAZOLE 40 MG TABLET PO SCH (07:40)
[2018-10-24] MEDS: LORATADINE 10 MG TAB PO SCH (07:40)
[2018-10-24] MEDS: ASPIRIN 81 MG PO SCH (07:40)
[2018-10-24] MEDS: HYDROcodone/APAP 7.5-325MG 1 EACH TAB PO PRN ×3 (07:42→21:25)
[2018-10-24] MEDS: ARIPiprazole 5 MG TAB PO SCH (07:42)
[2018-10-24] MEDS: INSULIN ASPART (NovoLOG) 100 UNIT/ML VIAL SQ SCH ×3 (07:46→17:36)
[2018-10-24] MEDS: FLUTICASONE 50MCG/SPRAY NASAL 16GM EA NOSTRIL SCH (07:47)
[2018-10-24] MEDS: NON-FORMULARY DRUG (Omega-3 Acid Ethyl Esters [Lovaza] 1 GM) PO SCH ×2 (07:47→21:42)
[2018-10-24] MEDS: VANCOMYCIN 1,750 MG in SODIUM CHLORIDE 0.9% 500 ML 500 ML IVPB SCH ×2 (07:48→21:41)
[2018-10-24 09:22] LABS: Basophils % (A) 0 %; Eosinophils # (A) 0.2 k/uL (0-0.7); Eosinophils % (A) 3 %; HCT 39.3 % (39.0-53.0); HGB 13.1 gm/dL (13.0-17.5); Lymphocytes # (A) 2.1 k/uL (1.0-4.8); Lymphocytes % (A) 27 %; MCH 29.3 pg (25.0-35.0); MCHC 33.3 g/dL (31.0-37.0); MCV 87.8 fL (80.0-100.0); Monocytes # (A) 0.5 k/uL (0-1.0); Monocytes % (A) 6 %; Neutrophils # (A) 4.7 k/uL (1.3-7.7); Neutrophils % (A) 61 %; Platelet Count 146 k/uL (150-450); RBC 4.47 m/uL (4.30-5.90); RDW 13.8 % (11.5-15.5); WBC 7.8 k/uL (3.8-10.6)
[2018-10-24 09:46] LABS: African American GFR (CKD) >90 (>60 ml/min/1.73 sqM); Anion Gap 8 mmol/L; Blood Urea Nitrogen 19 mg/dL (9-20); Calcium 8.9 mg/dL (8.4-10.2); Carbon Dioxide 27 mmol/L (22-30); Chloride 105 mmol/L (98-107); Glucose 92 mg/dL (74-99); Magnesium 1.7 mg/dL (1.6-2.3); Potassium 4.6 mmol/L (3.5-5.1); Sodium 140 mmol/L (137-145)
[2018-10-24 12:10] LABS: Glucose,Whole Blood 107 mg/dL (75-99)
[2018-10-24 17:20] LABS: Glucose,Whole Blood 130 mg/dL (75-99)
--- NOTE | 2018-10-24 20:01 | P.HPIM ---
History of Present Illness H&P Date: 10/23/18 Chief Complaint: Left foot wound infection Patient is a 53-year-old male with a known history of coronary artery disease with history of stent placement, CHF with systolic dysfunction, history of AICD placement, diabetes type 2, hypertension and hyperlipidemia initially presents to [facility] with complaints of discharge from the left foot, mainly at fourth and fifth toe amputation site for the past few days and increased redness and pain. pt denied any complains of fever. Denied any complains of chest pain or shortness of breath. No nausea vomiting or abdominal pain. No chills. No headache or dizziness or lightheadedness. Patient initially presents to the hospital and initially was transferred to [facility] for vascular surgery evaluation. Patient follows with Dr. Del Cid as an outpatient. Laboratory data at [facility] was reviewed. Magnesium 1.2 which was replaced. Patient was given a dose of vancomycin in the ER. X-ray of the left foot showed soft tissue swelling and no evidence of osteomyelitis. Review of Systems Constitutional: Patient denies any fever or chills . No generalized weakness or weight loss. Abdomen: Patient denied nausea vomiting and diarrhea and abdominal pain. Cardiovascular: Patient denies any chest pain or short of breath no palpitations. Respiratory: patient denied any cough is from production. No shortness of breath Neurologic: Patient denied any numbness or tingling headache. Musculoskeletal: Patient denies any complaints of joint swelling or deformity. Left foot wound infection and swelling. Skin: Negative Psychiatric: Negative Endocrine: No heat or cold intolerance. No recent weight gain. Genitourinary: No dysuria or hematuria. All other 14 point ROS negative except the above Past Medical History Past Medical History: Coronary Artery Disease (CAD), Heart Failure, Diabetes Mellitus, GERD/Reflux, Hyperlipidemia, Hypertension History of Any Multi-Drug Resistant Organisms: None Reported Past Surgical History: AICD, Cholecystectomy, Coronary Bypass/CABG, Heart Catheterization With Stent, Orthopedic Surgery Additional Past Surgical History / Comment(s): LEFT ROTATOR CUFF REPAIR CABG-4 VESSELS, HEART STENTS X ?2-3 Past Anesthesia/Blood Transfusion Reactions: No Reported Reaction Date of Last Stent Placement:: 2011 APPROX Type of Cardiac Device: AICD Device Placement Date:: July 2014 Past Psychological History: Depression Smoking Status: Never smoker Past Alcohol Use History: None Reported Additional Past Alcohol Use History / Comment(s): QUIT SMOKING APPROX 2007, STARTED SMOKING AT AGE 18 Past Drug Use History: None Reported - Past Family History Mother Family Medical History: Diabetes Mellitus Father Family Medical History: Cancer Additional Family Medical History / Comment(s): LIVER Medications and Allergies Home Medications Medication Instructions Recorded Confirmed Type Gemfibrozil [Lopid] 600 mg PO AC-BID 07/06/14 10/23/18 History Fluticasone Nasal [place] [Flonase 1 spr EA NOSTRIL DAILY 08/31/15 10/23/18 History Nasal [place]] Niacin [Niacin ER] 1,000 mg PO HS 08/31/15 10/23/18 History Atorvastatin [Lipitor] 80 mg PO HS #30 tab 09/04/15 10/23/18 Rx Nitroglycerin Sl Tabs [Nitrostat] 0.4 mg SUBLINGUAL Q5M PRN #25 tab 09/04/15 10/23/18 Rx Pantoprazole [Protonix] 40 mg PO AC-BRKFST #30 tablet.dr 09/04/15 10/23/18 Rx Apixaban [Eliquis] 5 mg PO BID 02/13/17 10/23/18 History Carvedilol [Coreg] 3.125 mg PO BID 02/13/17 10/23/18 History Loratadine [Claritin] 10 mg PO DAILY 02/13/17 10/23/18 History ARIPiprazole [Abilify] 5 mg PO DAILY 11/16/17 10/23/18 History Aspirin EC [Ecotrin Low Dose] 81 mg PO DAILY 11/16/17 10/23/18 History Furosemide [Lasix] 40 mg PO BID 11/16/17 10/23/18 History Magnesium Oxide [Mag-Ox] 400 mg PO BID 05/06/18 10/23/18 History DULoxetine HCL [Cymbalta] 120 mg PO DAILY 07/23/18 10/23/18 History HYDROcodone/APAP 7.5-325MG [[place] 1 tab PO TID PRN 07/23/18 10/23/18 History 7.5-325] Lisinopril [Zestril] 2.5 mg PO DAILY 07/23/18 10/23/18 History metFORMIN HCL [Glucophage] 1,000 mg PO BID 07/23/18 10/23/18 History Insulin Degludec [Tresiba 42 units SQ HS 10/23/18 10/23/18 History Flextouch U-100] Insulin Lispro [humaLOG Kwikpen] 5 unit SQ AC-BID@1200,1830 10/23/18 10/23/18 History Insulin Lispro [humaLOG Kwikpen] 8 unit SQ AC-BRKFST 10/23/18 10/23/18 History [place]-3 Acid Ethyl Esters [Lovaza] 1 gm PO BID 10/23/18 10/23/18 History Allergies Allergy/AdvReac Type Severity Reaction Status Date / Time No Known Allergies Allergy Verified 10/23/18 18:11 Physical Exam Vitals: Vital Signs Temp Pulse Resp BP Pulse Ox 10/23/18 17:38 97.9 F 84 18 107/59 97 Intake and Output 10/23/18 10/23/18 10/23/18 06:59 14:59 22:59 Other: Weight 108.9 kg PHYSICAL EXAMINATION: Patient is lying in the bed comfortably, no acute distress, awake alert and oriented.. HEENT: Normocephalic. Neck is supple. Pupils reactive. Nostrils clear. Oral cavity is moist. Ears reveal no drainage. Neck reveals no JVD, carotid bruits, or thyromegaly. CHEST EXAMINATION: Trachea is central. Symmetrical expansion. Lung ann clear to auscultation and percussion. CARDIAC: Normal S1, S2 with no gallops. No murmurs ABDOMEN: Soft. Bowel sounds normal. No organomegaly. No abdominal bruits. Extremities: reveal no edema. No clubbing or cyanosis Left fourth and fifth toe amputation site showed redness and purulent drainage with surrounding cellulitis. Neurologically awake, alert, oriented x3 with well-coordinated movements. No focal deficits noted Skin: No rash or skin lesions. Psychiatric: Coperative. Nonsuicidal Musculoskeletal: No joint swelling or deformity. Normal range of motion. Results CBC & Chem 7: 10/24/18 08:28 10/24/18 08:28 Labs: Abnormal Lab Results - Last 24 Hours (Table) 10/23/18 10/23/18 Range/Units 17:48 20:56 POC Glucose (mg/dL) 134 H 240 H (75-99) mg/dL Thrombosis Risk Factor Assmnt - DVT/VTE Prophylaxis DVT/VTE Prophylaxis: Pharmacologic Prophylaxis ordered - Choose All That Apply Each Factor Represents 1 point: Age 41-60 years, Obesity (BMI >25) Thrombosis Risk Factor Assessment Total Risk Factor Score: 2 Thrombosis Risk Factor Assessment Level: Low Risk Assessment and Plan Assessment: Left foot wound infection with surrounding cellulitis Diabetic foot infection Peripheral vascular disease History of left fourth and fifth toe amputation Chronic CHF with systolic dysfunction History of AICD placement Diabetes type 2 insulin-dependent Obesity with BMI 32.6 Coronary artery disease with history of stent placement CABG four-vessel Hypertension GERD Hyperlipidemia Depression Plan: Patient will be continued on IV antibiotics in the form of vancomycin. Follow up wound culture report. Vascular surgery and ID was consulted. Continue with insulin dosing and other home blood pressure medications. Follow closely and further recommendations based on the clinical course. Time with Patient: Greater than 30
[2018-10-24 20:48] LABS: Glucose,Whole Blood 96 mg/dL (75-99)
[2018-10-24] MEDS: ATORVASTATIN 80 MG TAB PO SCH (21:17)
[2018-10-24] MEDS: INSULIN DETEMIR (LEVEMIR) 100 UNIT/ML SYR SQ SCH (21:25)
[2018-10-24] MEDS: NIACIN TR 500 MG CAPLET PO SCH (21:25)
--- NOTE | 2018-10-24 23:44 | P.PN ---
Subjective Progress Note Date: 10/24/18 Principal diagnosis: Left foot diabetic ulcer with cellulitis Patient is a 53-year-old male with a known history of coronary artery disease with history of stent placement, CHF with systolic dysfunction, history of AICD placement, diabetes type 2, hypertension and hyperlipidemia initially presents to [facility] with complaints of discharge from the left foot, mainly at fourth and fifth toe amputation site for the past few days and increased redness and pain. pt denied any complains of fever. Denied any complains of chest pain or shortness of breath. No nausea vomiting or abdominal pain. No chills. No headache or dizziness or lightheadedness. Patient initially presents to the hospital and initially was transferred to [facility] for vascular surgery evaluation. Patient follows with Dr. Del Cid as an outpatient. Laboratory data at [facility] was reviewed. Magnesium 1.2 which was replaced. Patient was given a dose of vancomycin in the ER. X-ray of the left foot showed soft tissue swelling and no evidence of osteomyelitis. 10/24/2018 Left foot swelling and redness is much improved now. No complaints of new drainage noted. No fever no chills. No leukocytosis. Patient was seen by general surgery and recommends no surgical intervention at this time. Follow-up final ID recommendations. Follow up wound cultures. Anticipate discharge in next 1-2 days. No complaints of chest pain or shortness of breath. No nausea vomiting or abdominal pain. No other acute overnight issues. Current medications reviewed. Objective - Vital Signs Vital signs: Vital Signs Temp 97.2 F L 10/24/18 13:27 Pulse 94 10/24/18 13:27 Resp 20 10/24/18 13:27 BP 109/61 10/24/18 13:27 Pulse Ox 98 10/24/18 13:27 Intake & Output 10/24/18 10/24/18 10/25/18 06:59 18:59 06:59 Intake Total 1000 Output Total 1450 Balance -450 Intake: Oral 1000 Output: Urine 1450 Other: # Voids 0 1 # Bowel Movements 0 # Emeses 0 - Exam PHYSICAL EXAMINATION: Patient is lying in the bed comfortably, no acute distress, awake alert and oriented.. HEENT: Normocephalic. Neck is supple. Pupils reactive. Nostrils clear. Oral cavity is moist. Ears reveal no drainage. Neck reveals no JVD, carotid bruits, or thyromegaly. CHEST EXAMINATION: Trachea is central. Symmetrical expansion. Lung ann clear to auscultation and percussion. CARDIAC: Normal S1, S2 with no gallops. No murmurs ABDOMEN: Soft. Bowel sounds normal. No organomegaly. No abdominal bruits. Extremities: reveal no edema. No clubbing or cyanosis Left fourth and fifth toe amputation site showed redness and no drainage noted. Mild tenderness.. Neurologically awake, alert, oriented x3 with well-coordinated movements. No focal deficits noted Skin: No rash or skin lesions. Psychiatric: Coperative. Nonsuicidal Musculoskeletal: No joint swelling or deformity. Normal range of motion. - Labs CBC & Chem 7: 10/24/18 08:28 10/24/18 08:28 Labs: Abnormal Lab Results - Last 24 Hours (Table) 10/23/18 10/24/18 10/24/18 Range/Units 20:56 08:28 12:00 Plt Count 146 L (150-450) k/uL POC Glucose (mg/dL) 240 H 107 H (75-99) mg/dL 10/24/18 Range/Units 17:01 Plt Count (150-450) k/uL POC Glucose (mg/dL) 130 H (75-99) mg/dL Assessment and Plan Assessment: Left foot wound infection with surrounding cellulitis. Improving. Diabetic foot infection Peripheral vascular disease History of left fourth and fifth toe amputation Chronic CHF with systolic dysfunction History of AICD placement Diabetes type 2 insulin-dependent Obesity with BMI 32.6 Coronary artery disease with history of stent placement CABG four-vessel Hypertension GERD Hyperlipidemia Depression Plan: Patient will be continued on IV antibiotics in the form of vancomycin. Follow up wound culture report. Vascular surgery and ID was consulted. Continue with insulin dosing and other home blood pressure medications. Follow closely and further recommendations based on the clinical course. Time with Patient: Greater than 30
--- NOTE | 2018-10-25 06:35 | P.CONS ---
History of Present Illness - Reason for Consult Consult date: 10/24/18 Left diabetic foot infection Requesting physician: Mo Francis - Chief Complaint Left foot swelling and drainage - History of Present Illness Patient is a 53-year-old male well known to my service this patient who did have a history of left diabetic foot infection status post left fourth and fifth amputation with resultant wound on the left side of his left foot for the patient follow-up with us at [facility] wound care, patient presented to outside facility with apparent increase the swelling and some drainage from his left foot wound with concern for wound infection the patient has been transferred to this facility, the patient denies having any fever or any chills the patient did have diabetic neuropathy has still have significant sensation in the foot has denies pain to the left foot area apparently the patient did have x-rays done at the outside facility with no evidence of any osteomyelitis the patient has been started on vancomycin and admitted to the hospital infectious disease was consulted for further recommendation about antibiotic therapy, patient was last seen in the wound care about a week ago and he did have a prematrix dressing applied Review of Systems Positive points has been mentioned in HPI. Other systems are negative Past Medical History Past Medical History: Coronary Artery Disease (CAD), Heart Failure, Diabetes Mellitus, GERD/Reflux, Hyperlipidemia, Hypertension History of Any Multi-Drug Resistant Organisms: None Reported Past Surgical History: AICD, Cholecystectomy, Coronary Bypass/CABG, Heart Catheterization With Stent, Orthopedic Surgery Additional Past Surgical History / Comment(s): LEFT ROTATOR CUFF REPAIR CABG-4 VESSELS, HEART STENTS X ?2-3 Past Anesthesia/Blood Transfusion Reactions: No Reported Reaction Date of Last Stent Placement:: 2011 Type of Cardiac Device: AICD Device Placement Date:: July 2014 Past Psychological History: Depression Smoking Status: Never smoker Past Alcohol Use History: None Reported Additional Past Alcohol Use History / Comment(s): QUIT SMOKING APPROX 2007, STARTED SMOKING AT AGE 18 Past Drug Use History: None Reported - Past Family History Mother Family Medical History: Diabetes Mellitus Father Family Medical History: Cancer Additional Family Medical History / Comment(s): LIVER Medications and Allergies Home Medications Medication Instructions Recorded Confirmed Type Gemfibrozil [Lopid] 600 mg PO AC-BID 07/06/14 10/23/18 History Fluticasone Nasal [place] [Flonase 1 spr EA NOSTRIL DAILY 08/31/15 10/23/18 History Nasal [place]] Niacin [Niacin ER] 1,000 mg PO HS 08/31/15 10/23/18 History Atorvastatin [Lipitor] 80 mg PO HS #30 tab 09/04/15 10/23/18 Rx Nitroglycerin Sl Tabs [Nitrostat] 0.4 mg SUBLINGUAL Q5M PRN #25 tab 09/04/15 10/23/18 Rx Pantoprazole [Protonix] 40 mg PO AC-BRKFST #30 tablet.dr 09/04/15 10/23/18 Rx Apixaban [Eliquis] 5 mg PO BID 02/13/17 10/23/18 History Carvedilol [Coreg] 3.125 mg PO BID 02/13/17 10/23/18 History Loratadine [Claritin] 10 mg PO DAILY 02/13/17 10/23/18 History ARIPiprazole [Abilify] 5 mg PO DAILY 11/16/17 10/23/18 History Aspirin EC [Ecotrin Low Dose] 81 mg PO DAILY 11/16/17 10/23/18 History Furosemide [Lasix] 40 mg PO BID 11/16/17 10/23/18 History Magnesium Oxide [Mag-Ox] 400 mg PO BID 05/06/18 10/23/18 History DULoxetine HCL [Cymbalta] 120 mg PO DAILY 07/23/18 10/23/18 History HYDROcodone/APAP 7.5-325MG [[place] 1 tab PO TID PRN 07/23/18 10/23/18 History 7.5-325] Lisinopril [Zestril] 2.5 mg PO DAILY 07/23/18 10/23/18 History metFORMIN HCL [Glucophage] 1,000 mg PO BID 07/23/18 10/23/18 History Insulin Degludec [Tresiba 42 units SQ HS 10/23/18 10/23/18 History Flextouch U-100] Insulin Lispro [humaLOG Kwikpen] 5 unit SQ AC-BID@1200,1830 10/23/18 10/23/18 History Insulin Lispro [humaLOG Kwikpen] 8 unit SQ AC-BRKFST 10/23/18 10/23/18 History [place]-3 Acid Ethyl Esters [Lovaza] 1 gm PO BID 10/23/18 10/23/18 History Allergies Allergy/AdvReac Type Severity Reaction Status Date / Time No Known Allergies Allergy Verified 10/23/18 18:11 Physical Exam Vitals: Vital Signs Temp Pulse Resp BP Pulse Ox 10/24/18 07:38 97.7 F 76 18 108/68 97 10/24/18 00:00 86 18 10/23/18 23:00 97.2 F L 86 18 106/69 97 10/23/18 17:38 97.9 F 84 18 107/59 97 Intake and Output 10/23/18 10/24/18 10/24/18 22:59 06:59 14:59 Intake Total 1000 Output Total 400 1050 Balance 600 -1050 Intake: Oral 1000 Output: Urine 400 1050 Other: # Voids 0 0 # Bowel Movements 0 0 # Emeses 0 0 Weight 108.9 kg GENERAL DESCRIPTION: Middle-aged male lying in bed, no distress. No tachypnea or accessory muscle of respiration use. HEENT: Shows Pallor , no scleral icterus. Oral mucous membrane is dry. No pharyngeal erythema or thrush NECK: Trachea central, no thyromegaly. LUNGS: Unlabored breathing. Clear to auscultation anteriorly. No wheeze or crackle. HEART: S1, S2, regular rate and rhythm. No loud murmur ABDOMEN: Soft, no tenderness , guarding or rigidity, no organomegaly EXTREMITIES: Left foot lateral border wound with no significant slough tissue with no surrounding swelling redness or any foul-smelling drainage. SKIN: No rash, no masses palpable. NEUROLOGICAL: The patient is awake, alert, oriented x3, mood and affect normal Results CBC & Chem 7: 10/24/18 08:28 10/24/18 08:28 Labs: Abnormal Lab Results - Last 24 Hours (Table) 10/23/18 10/23/18 10/24/18 Range/Units 17:48 20:56 08:28 Plt Count 146 L (150-450) k/uL POC Glucose (mg/dL) 134 H 240 H (75-99) mg/dL Assessment and Plan Assessment: 1-patient with a chronic nonhealing wound to the left foot lateral border site of fourth and fifth amputation this patient apparently admitted hospital with increasing swelling and redness and drainage from his wound however I did not appreciate any swelling redness or foul-smelling drainage on today's evaluation patient is not running any fever and his white count has been normal Plan: 1-vancomycin pharmacy to dose target of 15 while watching his kidney function Vanco trough closely, while waiting for the culture finalized 2-local wound care with Aquacel silver dressing we will follow up on clinical condition and cultures to further adjust medication if needed Thank you for this consultation will follow this patient along with you Time with Patient: Greater than 30
[2018-10-25 06:42] VITALS: BP 115/74; PULSE 60; RESP 18; TEMP 98.1
[2018-10-25 07:22] LABS: Glucose,Whole Blood 106 mg/dL (75-99)
[2018-10-25 08:02] LABS: Basophils % (A) 0 %; Eosinophils # (A) 0.3 k/uL (0-0.7); Eosinophils % (A) 5 %; HCT 38.4 % (39.0-53.0); HGB 12.9 gm/dL (13.0-17.5); Lymphocytes # (A) 2.2 k/uL (1.0-4.8); Lymphocytes % (A) 30 %; MCH 29.3 pg (25.0-35.0); MCHC 33.5 g/dL (31.0-37.0); MCV 87.5 fL (80.0-100.0); Mean Platelet Volume 8.4; Monocytes # (A) 0.5 k/uL (0-1.0); Monocytes % (A) 6 %; Neutrophils # (A) 4.2 k/uL (1.3-7.7); Neutrophils % (A) 57 %; Platelet Count 150 k/uL (150-450); RBC 4.39 m/uL (4.30-5.90); RDW 13.6 % (11.5-15.5); WBC 7.3 k/uL (3.8-10.6)
[2018-10-25 08:10] LABS: African American GFR (CKD) >90 (>60 ml/min/1.73 sqM); Anion Gap 7 mmol/L; Blood Urea Nitrogen 22 mg/dL (9-20); Calcium 8.9 mg/dL (8.4-10.2); Carbon Dioxide 31 mmol/L (22-30); Chloride 103 mmol/L (98-107); Glucose 105 mg/dL (74-99); Potassium 4.1 mmol/L (3.5-5.1); Sodium 141 mmol/L (137-145)
[2018-10-25] MEDS: HYDROcodone/APAP 7.5-325MG 1 EACH TAB PO PRN (08:16)
[2018-10-25] MEDS: CARVEDILOL 3.125 MG TAB PO SCH (08:17)
[2018-10-25] MEDS: LORATADINE 10 MG TAB PO SCH (08:17)
[2018-10-25] MEDS: ASPIRIN 81 MG PO SCH (08:17)
[2018-10-25] MEDS: MAGNESIUM OXIDE 400 MG TAB PO SCH (08:17)
[2018-10-25] MEDS: FUROSEMIDE 40 MG TAB PO SCH (08:17)
[2018-10-25] MEDS: APIXABAN 5 MG TAB PO SCH (08:17)
[2018-10-25] MEDS: LISINOPRIL 2.5 MG TAB PO SCH (08:17)
[2018-10-25] MEDS: metFORMIN 500 MG TAB PO SCH (08:17)
[2018-10-25] MEDS: DULoxetine HCL 60 MG CAPSULE.DR PO SCH (08:17)
[2018-10-25] MEDS: FENOFIBRATE 160 MG TAB PO SCH (08:17)
[2018-10-25] MEDS: PANTOPRAZOLE 40 MG TABLET PO SCH (08:17)
[2018-10-25] MEDS: INSULIN ASPART (NovoLOG) 100 UNIT/ML VIAL SQ SCH ×2 (08:18→12:33)
[2018-10-25] MEDS: NON-FORMULARY DRUG (Omega-3 Acid Ethyl Esters [Lovaza] 1 GM) PO SCH (08:18)
[2018-10-25] MEDS: ARIPiprazole 5 MG TAB PO SCH (08:20)
[2018-10-25] MEDS: VANCOMYCIN 1,750 MG in SODIUM CHLORIDE 0.9% 500 ML 500 ML IVPB SCH (08:20)
[2018-10-25] MEDS: FLUTICASONE 50MCG/SPRAY NASAL 16GM EA NOSTRIL SCH (08:25)
[2018-10-25 09:12] LABS: C Reactive Protein <5.0 mg/L (<10.0)
[2018-10-25 12:03] LABS: Glucose,Whole Blood 132 mg/dL (75-99)
[2018-10-25 12:48] LABS: Erythrocyte Sedimentation Rate 12 mm/hr (0-15)
[2018-10-25 13:32] VITALS: BMI 32.5
--- NOTE | 2018-10-25 14:14 | PN ---
PROGRESS NOTE DATE OF SERVICE: 10/25/2018 REASON FOR FOLLOWUP: Left diabetic foot wound and question of cellulitis. INTERVAL HISTORY: The patient is currently afebrile. The patient is breathing comfortably. Denies having any chest pain, shortness of breath or cough. No abdominal pain or pain to the left foot lateral border wound area. PHYSICAL EXAMINATION: On examination, blood pressure is 115/74 with a pulse of 60, temperature 98.1. He is 96% on room air. General description is a middle-aged male lying in bed in no distress. RESPIRATORY SYSTEM: Unlabored breathing, clear to auscultation anteriorly. HEART: S1, S2. Regular rate and rhythm. ABDOMEN: Soft, no tenderness. Left foot lateral border wound with no slough tissue. No surrounding swelling notice or any drainage. LABS: Hemoglobin is 12.9, white count 7.e, BUN of 22, creatinine 1.0. DIAGNOSTIC IMPRESSION AND PLAN: Patient with left diabetic foot wound. Clinically doubt significant or deep infection. At this time antibiotic was switched over to oral doxycycline 100 mg twice a day for about 10 days. Local wound care with Aquacel Silver dressing and follow up in the [facility] next week. MMODL / IJN: [id number] /
[2018-10-25] MEDS ORDERED: VANCOMYCIN TROUGH DUE 1 EACH MISC MISCELLANE ONE (19:00)
== END 2018-10-25 15:15 | disposition home or self-care (01) | DRG 638 ==
LOC: 4MS4W 15:34
PROVIDERS: ADMIT Internal Medicine; ATTEND Internal Medicine
DX: E11.621 Type 2 diabetes mellitus with foot ulcer (principal); I50.22 Chronic systolic (congestive) heart failure; L03.116 Cellulitis of left lower limb; E11.51 Type 2 diabetes mellitus with diabetic peripheral angiopathy without gangrene; E11.628 Type 2 diabetes mellitus with other skin complications; E66.9 Obesity, unspecified; E78.5 Hyperlipidemia, unspecified; F32.9 Major depressive disorder, single episode, unspecified; I11.0 Hypertensive heart disease with heart failure; I25.10 Atherosclerotic heart disease of native coronary artery without angina pectoris; K21.9 Gastro-esophageal reflux disease without esophagitis; L97.529 Non-pressure chronic ulcer of other part of left foot with unspecified severity; Z68.32 Body mass index [BMI] 32.0-32.9, adult; Z79.01 Long term (current) use of anticoagulants; Z79.4 Long term (current) use of insulin; Z79.82 Long term (current) use of aspirin; Z79.899 Other long term (current) drug therapy; Z83.3 Family history of diabetes mellitus; Z95.1 Presence of aortocoronary bypass graft; Z95.5 Presence of coronary angioplasty implant and graft; Z95.810 Presence of automatic (implantable) cardiac defibrillator; Z90.49 Acquired absence of other specified parts of digestive tract; Z79.51 Long term (current) use of inhaled steroids; Z79.891 Long term (current) use of opiate analgesic
CPT/HCPCS: 80048; 83735; 85025; 85652; 86140

== ENCOUNTER 2018-11-21 22:53 | Observation (INO) | payer MEDICARE, OTHER ==
--- NOTE | 2018-11-21 23:55 | ED ---
General Adult HPI - General Chief complaint: Chest Pain Stated complaint: Chest pain Time Seen by Provider: 11/21/18 23:17 Source: patient, EMS Mode of arrival: EMS Limitations: no limitations - History of Present Illness Initial comments: Dictation was produced using [employer] dictation software. please excuse any grammatical, word or spelling errors. Chief Complaint: 53-year-old male with past medical history of coronary artery disease, heart failure status post AICD presents with concerns of defibrillator firing. History of Present Illness: 53-year-old male who presents today because his defibrillator fired. He states he was at home at rest when he felt a intense shock to his chest. Patient didn't think much of it and then he felt another shock to his chest while at rest again. 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 He was seen at [facility]. Emergency Physician there did a workup. Chart review shows that patient has [employer] AICD The ROS documented in this emergency department record has been reviewed and confirmed by me. Those systems with pertinent positive or negative responses have been documented in the HPI. All other systems are other negative and/or noncontributory. PHYSICAL EXAM: General Impression: Alert and oriented x3, not in acute distress HEENT: Normocephalic atraumatic, extra-ocular movements intact, pupils equal and reactive to light bilaterally, mucous membranes moist. Cardiovascular: Heart regular rate and rhythm, S1&S2 audible, no murmurs, rubs or gallops Chest: Lungs clear to auscultation bilaterally, no rhonchi, no wheeze, no rales Abdomen: Bowel sounds present, abdomen soft, non-tender, non-distended, no organomegaly Musculoskeletal: Pulses present and equal in all extremities, no peripheral edema Motor: no focal deficits noted Neurological: CN II-XII grossly intact, no focal motor or sensory deficits noted Skin: Intact with no visualized rashes Psych: Normal affect and mood ED course: 23-year-old male presents after two defibrillations. On arrival are within acceptable limits. Patient states he felt chest pain after the initial shock. He continues to have mild discomfort in his chest that he reports is from a shock. Patient otherwise has no complaints at this time. Chart from [place] was reviewed. Patient had negative cardiac workup from transferring facility. Patient is well-appearing at this time. Troponin ordered. EKG here was ordered found to be unremarkable. Pending device interrogation. We will admit patient for cardiology consultation. EKG interpretation: Ventricular rate 85, normal sinus rhythm, NJ interval 162, QRS 120, QTC 480. No NJ prolongation, no QTC prolongation, no ST or T-wave changes noted. EKG compared to 07/24/2018 showing no changes. Overall, this EKG is unremarkable - Related Data Home Medications Medication Instructions Recorded Confirmed Gemfibrozil [Lopid] 600 mg PO AC-BID 07/06/14 11/21/18 Fluticasone Nasal [place] [Flonase 1 spr EA NOSTRIL DAILY 08/31/15 11/21/18 Nasal [place]] Niacin [Niacin ER] 1,000 mg PO HS 08/31/15 11/21/18 Apixaban [Eliquis] 5 mg PO BID 02/13/17 11/21/18 Carvedilol [Coreg] 3.125 mg PO BID 02/13/17 11/21/18 Loratadine [Claritin] 10 mg PO DAILY 02/13/17 11/21/18 ARIPiprazole [Abilify] 5 mg PO DAILY 11/16/17 11/21/18 Aspirin EC [Ecotrin Low Dose] 81 mg PO DAILY 11/16/17 11/21/18 Furosemide [Lasix] 40 mg PO BID@0900,1600 11/16/17 11/21/18 Magnesium Oxide [Mag-Ox] 400 mg PO DAILY 05/06/18 11/21/18 DULoxetine HCL [Cymbalta] 120 mg PO DAILY 07/23/18 11/21/18 Lisinopril [Zestril] 2.5 mg PO DAILY 07/23/18 11/21/18 metFORMIN HCL [Glucophage] 1,000 mg PO BID 07/23/18 11/21/18 Insulin Degludec [Tresiba 42 units SQ HS 10/23/18 11/21/18 Flextouch U-100] Insulin Lispro [humaLOG Kwikpen] 7 unit SQ AC-TID 10/23/18 11/21/18 [place]-3 Acid Ethyl Esters [Lovaza] 1 gm PO BID 10/23/18 11/21/18 Liraglutide [[place] 2-Masood] 1.8 mg SQ DAILY 11/21/18 11/21/18 Previous Rx's Medication Instructions Recorded Atorvastatin [Lipitor] 80 mg PO HS #30 tab 09/04/15 Nitroglycerin Sl Tabs [Nitrostat] 0.4 mg SUBLINGUAL Q5M PRN #25 tab 09/04/15 Pantoprazole [Protonix] 40 mg PO AC-BRKFST #30 tablet. 09/04/15 HYDROcodone/APAP 7.5-325MG [[place] 1 tab PO TID PRN 3 Days #9 tab 10/25/18 7.5-325] Allergies Allergy/AdvReac Type Severity Reaction Status Date / Time No Known Allergies Allergy Verified 11/21/18 23:33 Review of Systems ROS Statement: Those systems with pertinent positive or pertinent negative responses have been documented in the HPI. ROS Other: All systems not noted in ROS Statement are negative. Past Medical History Past Medical History: Coronary Artery Disease (CAD), Heart Failure, Diabetes Mellitus, GERD/Reflux, Hyperlipidemia, Hypertension History of Any Multi-Drug Resistant Organisms: None Reported Past Surgical History: AICD, Cholecystectomy, Coronary Bypass/CABG, Heart Catheterization With Stent, Orthopedic Surgery Additional Past Surgical History / Comment(s): LEFT ROTATOR CUFF REPAIR CABG-4 VESSELS, HEART STENTS X ?2-3 Past Anesthesia/Blood Transfusion Reactions: No Reported Reaction Date of Last Stent Placement:: 2011 Type of Cardiac Device: AICD Device Placement Date:: July 2014 Past Psychological History: Depression Smoking Status: Never smoker Past Alcohol Use History: None Reported Additional Past Alcohol Use History / Comment(s): QUIT SMOKING APPROX 2007, STARTED SMOKING AT AGE 18 Past Drug Use History: None Reported - Past Family History Mother Family Medical History: Diabetes Mellitus Father Family Medical History: Cancer Additional Family Medical History / Comment(s): LIVER General Exam Limitations: no limitations Course Vital Signs 11/21/18 23:04 Temperature 97.8 F Pulse Rate 85 Respiratory 16 Rate Blood Pressure 97/59 O2 Sat by Pulse 100 Oximetry Disposition Clinical Impression: Defibrillator discharge Disposition: ADMITTED IP TO THIS [facility] Condition: Fair Referrals: Deshawn Allen MD [Primary Care Provider] - 1-2 days Decision Time: 00:40
[2018-11-22] MEDS ORDERED: ONDANSETRON 4 MG/2 ML VIAL IVP PRN (00:37)
[2018-11-22] MEDS ORDERED: NALOXONE 0.4 MG/ML 1 ML VIAL IV PRN (00:37)
[2018-11-22] MEDS ORDERED: PANTOPRAZOLE 40 MG TABLET PO SCH (07:30)
[2018-11-22] MEDS: metFORMIN 500 MG TAB PO SCH ×2 (07:50→21:34)
[2018-11-22] MEDS: LORATADINE 10 MG TAB PO SCH (07:50)
[2018-11-22] MEDS: MAGNESIUM OXIDE 400 MG TAB PO SCH (07:50)
[2018-11-22] MEDS: CARVEDILOL 3.125 MG TAB PO SCH ×2 (07:51→17:15)
[2018-11-22] MEDS: ASPIRIN 81 MG PO SCH (07:51)
[2018-11-22] MEDS: PANTOPRAZOLE 40 MG TABLET PO SCH (07:51)
[2018-11-22] MEDS: APIXABAN 5 MG TAB PO SCH ×2 (07:51→21:34)
[2018-11-22] MEDS: FUROSEMIDE 40 MG TAB PO SCH ×2 (07:51→17:15)
[2018-11-22 08:00] LABS: Glucose,Whole Blood 136 mg/dL (75-99)
[2018-11-22 10:09] VITALS: BMI 33.9
[2018-11-22] MEDS ORDERED: NITROGLYCERIN SL TABS 0.4 MG TAB SUBLINGUAL PRN (10:15)
[2018-11-22] MEDS: NON-FORMULARY DRUG (Liraglutide [Victoza 2-Pak] 1.8 MG) SQ SCH (11:23)
[2018-11-22] MEDS: LISINOPRIL 2.5 MG TAB PO SCH (11:28)
[2018-11-22] MEDS: ARIPiprazole 5 MG TAB PO SCH (11:28)
[2018-11-22] MEDS: DULoxetine HCL 60 MG CAPSULE.DR PO SCH (11:30)
[2018-11-22] MEDS: FENOFIBRATE 160 MG TAB PO SCH (11:30)
[2018-11-22 12:20] LABS: Glucose,Whole Blood 102 mg/dL (75-99)
[2018-11-22] MEDS: INSULIN ASPART (NovoLOG) 100 UNIT/ML VIAL SQ SCH ×2 (12:57→17:15)
[2018-11-22] MEDS: SODIUM CHLORIDE 0.9% 1,000 ML IV SCH (15:34)
[2018-11-22 17:17] LABS: Glucose,Whole Blood 138 mg/dL (75-99)
--- NOTE | 2018-11-22 17:46 | P.HPIM ---
History of Present Illness H&P Date: 11/22/18 Chief Complaint: AICD firing History of presenting complaint: This is a pleasant 53-year-old patient of Dr. Allen. Patient's ultrasound specialist is Dr. Anneliese Jenkins. Chronic stable medical conditions include coronary artery disease with stent in 2011 and a four-vessel coronary bypass. Chronic other stable medical conditions include congestive heart failure EF not known, diabetes, GERD, hyperlipidemia, hypertension. Patient presents with AICD firing 2 yesterday. No further episodes since then. A chest pain or shoulder but no nausea vomiting. No fever no chills. 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 Patient is left-handed. Review of systems: GEN.: None EYES: None HEENT: None NECK: None RESPIRATORY: None CARDIOVASCULAR: [As above GASTROINTESTINAL: None GENITOURINARY: None MUSCULOSKELETAL: Some pain in the joints, chronically weak right arm from LYMPHATICS: None HEMATOLOGICAL: None PSYCHIATRY: None NEUROLOGICAL: None Past medical history: Coronary artery disease with four-vessel bypass and 2 stents in 2011, congestive heart failure EF not known, diabetes, GERD, hypertension, hyperlipidemia. Chronic weakness of the right arm umbilical cord was wrapped around at Social history: Doesn't drink alcohol. Smoked for about 25 years stopped in 2007. Lives with his girlfriend. Is disabled. Did different jobs previously Physical examination: VITAL SIGNS: 97.8, 85, 16, 97/59, 100% on 2 L GENERAL: BMI 33.2, laying in bed, comfortable. EYES: Pupils equal. Conjunctiva normal. HEENT: External appearance of nose and ears normal, oral cavity grossly normal. NECK: JVD not raised; masses not palpable. HEART: First and second heart sounds are normal; no edema. LUNGS: Respiratory rate normal; decreased breath sounds. ABDOMEN: Soft, nontender, liver spleen not palpable, no masses palpable. PSYCH: Alert and oriented x3; mood and affect normal. NEUROLOGICAL: Cranial nerves grossly intact; no facial asymmetry, power and sensation grossly intact. LYMPHATICS: No lymph nodes palpable in the axilla and neck INVESTIGATIONS, reviewed in the clinical context: Troponin I 2 negative Accu-Cheks 136 [id number] Assessment: -AICD firing 2 -Coronary artery disease a prior history of coronary bypass and stent -Chronic congestive heart failure EF not known -Diabetes mellitus type 2 chronically on insulin -GERD -Essential hypertension -Hyperlipidemia -Unilateral weakness of the right arm Plan: Cardiology was consulted. AICD check will be carried out. We'll check patient's electrolytes. Care was discussed with the patient question were answered. Home medications resumed. Check Accu-Cheks. Past Medical History Past Medical History: Coronary Artery Disease (CAD), Heart Failure, Diabetes Mellitus, GERD/Reflux, Hyperlipidemia, Hypertension History of Any Multi-Drug Resistant Organisms: None Reported Past Surgical History: AICD, Cholecystectomy, Coronary Bypass/CABG, Heart Catheterization With Stent, Orthopedic Surgery Additional Past Surgical History / Comment(s): LEFT ROTATOR CUFF REPAIR CABG-4 VESSELS, HEART STENTS X ?2-3 Past Anesthesia/Blood Transfusion Reactions: No Reported Reaction Date of Last Stent Placement:: 2011 APPROX Type of Cardiac Device: AICD Device Placement Date:: July 2014 Past Psychological History: Anxiety, Depression Smoking Status: Former smoker Past Alcohol Use History: None Reported Additional Past Alcohol Use History / Comment(s): QUIT SMOKING APPROX 2007, STARTED SMOKING AT AGE 18 Past Drug Use History: None Reported - Past Family History Mother Family Medical History: Diabetes Mellitus Father Family Medical History: Cancer Additional Family Medical History / Comment(s): LIVER Medications and Allergies Home Medications Medication Instructions Recorded Confirmed Type Gemfibrozil [Lopid] 600 mg PO AC-BID 07/06/14 11/21/18 History Fluticasone Nasal [place] [Flonase 1 spr EA NOSTRIL DAILY 08/31/15 11/21/18 History Nasal [place]] Niacin [Niacin ER] 1,000 mg PO HS 08/31/15 11/21/18 History Atorvastatin [Lipitor] 80 mg PO HS #30 tab 09/04/15 11/21/18 Rx Nitroglycerin Sl Tabs [Nitrostat] 0.4 mg SUBLINGUAL Q5M PRN #25 tab 09/04/15 11/21/18 Rx Pantoprazole [Protonix] 40 mg PO AC-BRKFST #30 tablet.dr 09/04/15 11/21/18 Rx Apixaban [Eliquis] 5 mg PO BID 02/13/17 11/21/18 History Carvedilol [Coreg] 3.125 mg PO BID 02/13/17 11/21/18 History Loratadine [Claritin] 10 mg PO DAILY 02/13/17 11/21/18 History ARIPiprazole [Abilify] 5 mg PO DAILY 11/16/17 11/21/18 History Aspirin EC [Ecotrin Low Dose] 81 mg PO DAILY 11/16/17 11/21/18 History Furosemide [Lasix] 40 mg PO BID@0900,1600 11/16/17 11/21/18 History Magnesium Oxide [Mag-Ox] 400 mg PO DAILY 05/06/18 11/21/18 History DULoxetine HCL [Cymbalta] 120 mg PO DAILY 07/23/18 11/21/18 History Lisinopril [Zestril] 2.5 mg PO DAILY 07/23/18 11/21/18 History metFORMIN HCL [Glucophage] 1,000 mg PO BID 07/23/18 11/21/18 History Insulin Degludec [Tresiba 42 units SQ HS 10/23/18 11/21/18 History Flextouch U-100] Insulin Lispro [humaLOG Kwikpen] 7 unit SQ AC-TID 10/23/18 11/21/18 History [place]-3 Acid Ethyl Esters [Lovaza] 1 gm PO BID 10/23/18 11/21/18 History HYDROcodone/APAP 7.5-325MG [[place] 1 tab PO TID PRN 3 Days #9 tab 10/25/18 11/21/18 Rx 7.5-325] Liraglutide [Victoza 2-Masood] 1.8 mg SQ DAILY 11/21/18 11/21/18 History Allergies Allergy/AdvReac Type Severity Reaction Status Date / Time No Known Allergies Allergy Verified 11/21/18 23:33 Physical Exam Vitals: Vital Signs Temp Pulse Pulse Resp BP BP Pulse Ox 11/22/18 15:21 98.3 F 89 18 126/66 97 11/22/18 11:34 97.6 F 86 18 116/61 98 11/22/18 08:00 99.2 F 90 18 109/74 95 11/22/18 04:30 82 20 99/59 11/22/18 04:20 84 20 99/59 99 11/22/18 04:10 85 24 99/59 94 L 11/22/18 04:00 81 17 100 11/22/18 02:45 99.2 F 90 16 109/74 98 11/21/18 23:04 97.8 F 85 16 97/59 100 Intake and Output 11/22/18 11/22/18 11/22/18 06:59 14:59 22:59 Intake Total 960 Balance 960 Intake: Oral 960 Other: # Voids 2 3 # Bowel Movements 1 Weight 113.398 kg 110.9 kg Results Labs: Abnormal Lab Results - Last 24 Hours (Table) 11/22/18 11/22/18 11/22/18 Range/Units 07:58 12:00 16:54 POC Glucose (mg/dL) 136 H 102 H 138 H (75-99) mg/dL Thrombosis Risk Factor Assmnt - Choose All That Apply Each Factor Represents 1 point: Age 41-60 years Thrombosis Risk Factor Assessment Total Risk Factor Score: 1 Thrombosis Risk Factor Assessment Level: Low Risk
[2018-11-22 18:51] LABS: African American GFR (CKD) >90 (>60 ml/min/1.73 sqM); Anion Gap 7 mmol/L; Blood Urea Nitrogen 23 mg/dL (9-20); Calcium 8.8 mg/dL (8.4-10.2); Carbon Dioxide 28 mmol/L (22-30); Chloride 102 mmol/L (98-107); Glucose 160 mg/dL (74-99); Magnesium 1.7 mg/dL (1.6-2.3); Potassium 4.2 mmol/L (3.5-5.1); Sodium 137 mmol/L (137-145)
[2018-11-22 20:52] LABS: Glucose,Whole Blood 130 mg/dL (75-99)
[2018-11-22] MEDS ORDERED: INSULIN DETEMIR (LEVEMIR) 100 UNIT/ML SYR SQ SCH (21:00)
[2018-11-22] MEDS ORDERED: ATORVASTATIN 80 MG TAB PO SCH (21:00)
[2018-11-22] MEDS ORDERED: NIACIN TR 500 MG CAPLET PO SCH (21:00)
[2018-11-22] MEDS: HYDROcodone/APAP 5-325MG 1 EACH TAB PO PRN (21:34)
[2018-11-23] MEDS: SODIUM CHLORIDE 0.9% 1,000 ML IV SCH (06:03)
[2018-11-23 06:52] LABS: Glucose,Whole Blood 123 mg/dL (75-99)
[2018-11-23] MEDS: INSULIN ASPART (NovoLOG) 100 UNIT/ML VIAL SQ SCH ×2 (07:06→12:44)
[2018-11-23] MEDS: CARVEDILOL 3.125 MG TAB PO SCH (07:06)
[2018-11-23] MEDS: PANTOPRAZOLE 40 MG TABLET PO SCH (07:06)
[2018-11-23] MEDS: ARIPiprazole 5 MG TAB PO SCH (08:49)
[2018-11-23] MEDS: APIXABAN 5 MG TAB PO SCH (08:49)
[2018-11-23] MEDS: ASPIRIN 81 MG PO SCH (08:49)
[2018-11-23] MEDS: LISINOPRIL 2.5 MG TAB PO SCH (08:49)
[2018-11-23] MEDS: MAGNESIUM OXIDE 400 MG TAB PO SCH (08:49)
[2018-11-23] MEDS: FUROSEMIDE 40 MG TAB PO SCH (08:49)
[2018-11-23] MEDS: FENOFIBRATE 160 MG TAB PO SCH (08:49)
[2018-11-23] MEDS: metFORMIN 500 MG TAB PO SCH (08:49)
[2018-11-23] MEDS: HYDROcodone/APAP 5-325MG 1 EACH TAB PO PRN (08:50)
[2018-11-23] MEDS: LORATADINE 10 MG TAB PO SCH (08:50)
[2018-11-23] MEDS: NON-FORMULARY DRUG (Liraglutide [Victoza 2-Pak] 1.8 MG) SQ SCH (08:52)
[2018-11-23 08:55] VITALS: TEMP 98.2
[2018-11-23 12:16] LABS: Glucose,Whole Blood 136 mg/dL (75-99)
[2018-11-23] MEDS: DULoxetine HCL 60 MG CAPSULE.DR PO SCH (12:43)
[2018-11-23 13:51] VITALS: BP 114/62; PULSE 87; RESP 16
--- NOTE | 2018-11-23 14:47 | P.CRDCN ---
History of Present Illness History of present illness: This is a pleasant 53-year-old male past medical history significant for coronary artery disease status post bypass grafting, paroxysmal atrial fibrillation on long-term anticoagulation, ischemic cardiomyopathy status post AICD placement, diabetes mellitus, chronic systolic heart failure, hypertension and dyslipidemia. He follows in the office with Dr. Jenkins. We have been asked to see him in consultation secondary to AICD discharge. The patient states this occurred on he was sitting down in his chair watching television he stood up to go to the bathroom and he felt a sudden she jolt in his chest and neck and back into his chair. Prior to having this episode he had no symptoms of palpitations, shortness of breath, chest pain, dizziness, nausea, vomiting or diaphoresis. After he felt a jolt in his chest he sat down for quite a while and felt increasingly tired and fatigued for a couple of hours. Subsequently thereafter he stood up again and tried to go to the bathroom and had a similar jolt in the chest neck and back into the chair prompting him to come in for evaluation. Verafin device was interrogated revealing NO evidence of AICD shocks delivered and no arrhythmias noted. EKG reveals sinus mechanism with incomplete left bundle-branch block and nonspecific T-wave abnormalities. Laboratory data reviewed, sodium 137, potassium 4.2, creatinine 0.85, cardiac enzymes negative 2 and magnesium 1.7. Current cardiac medications include Eliquis 5 mg twice a day, aspirin 81 mg daily, atorvastatin 80 mg daily, carvedilol 3.125 mg twice a day, Lasix 40 mg twice a day, gemfibrozil 600 mg twice a day, lisinopril 2.5 mg daily. Most recent echocardiogram obtained in the office June 2018 reveals impaired LV systolic function with ejection fraction 30%, akinesia of the inferior septal [place] from the base to the apex with the remainder of the LV hypokinetic, moderately dilated right ventricle with mildly decreased function, moderately dilated right atrium, mild mitral regurgitation and mild tricuspid regurgitation noted. At the time of my exam: CONSTITUTIONAL: Denies fever. Denies chills. EYES: Denies blurred vision. Denies vision changes. Denies eye pain. EARS, NOSE, MOUTH & THROAT: Denies headache. Denies sore throat. Denies ear pain. CARDIOVASCULAR: Denies chest pain. Denies shortness of breath. Denies orthopnea. Denies PND. Denies palpitations. RESPIRATORY: Denies cough. GASTROINTESTINAL: Denies abdominal pain. Denies diarrhea. Denies constipation. Denies nausea. Denies vomiting. MUSCULOSKELETAL: Denies myalgias. INTEGUMENTARY: Denies pruitis. Denies rash. NEUROLOGIC: Denies numbness. Denies tingling. Denies weakness. PSYCHIATRIC: Denies anxiety. Denies depression. ENDOCRINE: Denies fatigue. Denies weight change. Denies polydipsia. Denies polyurina. GENITOURINARY: Denies burning, hematuria or urgency with micturation. HEMATOLOGIC: Denies history of anemia. Denies bleeding. Blood pressure 114/62 heart rate 87 afebrile maintaining oxygen saturation on room air GENERAL: This is a 53-year-old occasion male in no apparent distress at the time of my examination. HEENT: Head is atraumatic, normocephalic. Pupils are equal, round. Sclerae anicteric. Conjunctivae are clear. Mucous membranes of the mouth are moist. Neck is supple. There is no jugular venous distention. No carotid bruit is heard. LUNGS: Clear to auscultation no wheezes, rales or rhonchi. No chest wall tenderness is noted on palpation or with deep breathing. HEART: Regular rate and rhythm without murmurs, rubs or gallops. S1 and S2 heard. ABDOMEN: Soft, nontender. Bowel sounds are heard. No organomegaly noted. EXTREMITIES: No evidence of peripheral edema and no calf tenderness noted. Chronic: Noted to the left lower extremity. VASCULAR: Radial and dorsalis pedis pulses palpated, no evidence of clubbing. NEUROLOGIC: Patient is awake, alert and oriented x3. ASSESSMENT Chest pain, atypical for angina. Patient feels as though his AICD discharged. [employer] interrogation reveals no evidence of AICD shock. Chronic systolic heart failure, currently euvolemic Ischemic cardiomyopathy status post AICD placement History of coronary artery disease status post bypass grafting Paroxysmal atrial fibrillation on long-term anticoagulation Diabetes mellitus Hypertension Dyslipidemia PLAN Stable for discharge from a cardiac perspective. No evidence of AICD firing. An acute coronary event has been ruled out. Thank you kindly for this consultation. Nurse Practitioner note has been reviewed, I agree with a documented findings and plan of care. Patient was seen and examined. Past Medical History Past Medical History: Coronary Artery Disease (CAD), Heart Failure, Diabetes Mellitus, GERD/Reflux, Hyperlipidemia, Hypertension History of Any Multi-Drug Resistant Organisms: None Reported Past Surgical History: AICD, Cholecystectomy, Coronary Bypass/CABG, Heart Catheterization With Stent, Orthopedic Surgery Additional Past Surgical History / Comment(s): LEFT ROTATOR CUFF REPAIR CABG-4 VESSELS, HEART STENTS X ?2-3 Past Anesthesia/Blood Transfusion Reactions: No Reported Reaction Date of Last Stent Placement:: 2011 Type of Cardiac Device: AICD Device Placement Date:: July 2014 Past Psychological History: Anxiety, Depression Smoking Status: Former smoker Past Alcohol Use History: None Reported Additional Past Alcohol Use History / Comment(s): QUIT SMOKING APPROX 2007, STARTED SMOKING AT AGE 18 Past Drug Use History: None Reported - Past Family History Mother Family Medical History: Diabetes Mellitus Father Family Medical History: Cancer Additional Family Medical History / Comment(s): LIVER Medications and Allergies Home Medications Medication Instructions Recorded Confirmed Type Gemfibrozil [Lopid] 600 mg PO AC-BID 07/06/14 11/21/18 History Fluticasone Nasal [place] [Flonase 1 spr EA NOSTRIL DAILY 08/31/15 11/21/18 History Nasal [place]] Niacin [Niacin ER] 1,000 mg PO HS 08/31/15 11/21/18 History Atorvastatin [Lipitor] 80 mg PO HS #30 tab 09/04/15 11/21/18 Rx Nitroglycerin Sl Tabs [Nitrostat] 0.4 mg SUBLINGUAL Q5M PRN #25 tab 09/04/15 11/21/18 Rx Pantoprazole [Protonix] 40 mg PO AC-BRKFST #30 tablet.dr 09/04/15 11/21/18 Rx Apixaban [Eliquis] 5 mg PO BID 02/13/17 11/21/18 History Carvedilol [Coreg] 3.125 mg PO BID 02/13/17 11/21/18 History Loratadine [Claritin] 10 mg PO DAILY 02/13/17 11/21/18 History ARIPiprazole [Abilify] 5 mg PO DAILY 11/16/17 11/21/18 History Aspirin EC [Ecotrin Low Dose] 81 mg PO DAILY 11/16/17 11/21/18 History Furosemide [Lasix] 40 mg PO BID@0900,1600 11/16/17 11/21/18 History Magnesium Oxide [Mag-Ox] 400 mg PO DAILY 05/06/18 11/21/18 History DULoxetine HCL [Cymbalta] 120 mg PO DAILY 07/23/18 11/21/18 History Lisinopril [Zestril] 2.5 mg PO DAILY 07/23/18 11/21/18 History metFORMIN HCL [Glucophage] 1,000 mg PO BID 07/23/18 11/21/18 History Insulin Degludec [Tresiba 42 units SQ HS 10/23/18 11/21/18 History Flextouch U-100] Insulin Lispro [humaLOG Kwikpen] 7 unit SQ AC-TID 10/23/18 11/21/18 History [place]-3 Acid Ethyl Esters [Lovaza] 1 gm PO BID 10/23/18 11/21/18 History HYDROcodone/APAP 7.5-325MG [[place] 1 tab PO TID PRN 3 Days #9 tab 10/25/18 11/21/18 Rx 7.5-325] Liraglutide [Victoza 2-Masood] 1.8 mg SQ DAILY 11/21/18 11/21/18 History Allergies Allergy/AdvReac Type Severity Reaction Status Date / Time No Known Allergies Allergy Verified 11/21/18 23:33 Physical Exam Vitals: Vital Signs Temp Pulse Resp BP Pulse Ox 11/23/18 08:20 98.2 F 89 18 118/58 98 11/23/18 04:00 98.3 F 87 16 121/73 97 11/23/18 00:00 98.2 F 86 16 129/73 95 11/22/18 20:00 87 16 124/66 96 11/22/18 15:21 98.3 F 89 18 126/66 97 11/22/18 11:34 97.6 F 86 18 116/61 98 Intake and Output 11/22/18 11/23/18 11/23/18 22:59 06:59 14:59 Intake Total 600 490 Balance 600 490 Intake: IV 10 0.9 10 Oral 600 480 Other: Voiding Method Toilet Toilet # Voids 2 3 # Bowel Movements 1 Results 11/22/18 18:10 Cardiac Enzymes 11/22/18 Range/Units 08:01 Troponin I <0.012 (0.000-0.034) ng/mL Comprehensive Metabolic Panel 11/22/18 Range/Units 18:10 Sodium 137 (137-145) mmol/L Potassium 4.2 (3.5-5.1) mmol/L Chloride 102 (98-107) mmol/L Carbon Dioxide 28 (22-30) mmol/L BUN 23 H (9-20) mg/dL Creatinine 0.85 (0.66-1.25) mg/dL Glucose 160 H (74-99) mg/dL Calcium 8.8 (8.4-10.2) mg/dL Current Medications Generic Name Dose Route Start Last Admin Trade Name Freq PRN Reason Stop Dose Admin Hydrocodone Bitart/Acetaminophen 1 each 11/22/18 00:37 11/23/18 08:50 [place] 5-325 PO 1 each Q4HR PRN Administration Moderate Pain Apixaban 5 mg 11/22/18 09:00 11/23/18 08:49 Eliquis PO 5 mg BID [facility] Administration Aripiprazole 5 mg 11/22/18 10:30 11/23/18 08:49 Abilify PO 5 mg DAILY [facility] Administration Aspirin 81 mg 11/22/18 09:00 11/23/18 08:49 Aspirin PO 81 mg DAILY [facility] Administration Atorvastatin Calcium 80 mg 11/22/18 21:00 11/22/18 21:34 Lipitor PO 80 mg HS [facility] Administration Carvedilol 3.125 mg 11/22/18 07:30 11/23/18 07:06 Coreg PO 3.125 mg AC-BID [facility] Administration Duloxetine HCl 120 mg 11/22/18 10:30 11/22/18 11:30 Cymbalta PO 120 mg DAILY [facility] Administration Fenofibrate 160 mg 11/22/18 10:30 11/23/18 08:49 Lofibra PO 160 mg DAILY [facility] Administration Furosemide 40 mg 11/22/18 09:00 11/23/18 08:49 Lasix PO 40 mg BID@0900,1600 [facility] Administration Sodium Chloride 1,000 mls @ 20 mls/hr 11/22/18 00:45 11/23/18 06:03 Saline 0.9% IV Not Given .Q24H [facility] Insulin Aspart 7 unit 11/22/18 12:30 11/23/18 07:06 Novolog SQ 7 unit AC-TID [facility] Administration Insulin Detemir 42 unit 11/22/18 21:00 11/22/18 21:35 Levemir SQ 42 unit HS [facility] Administration Lisinopril 2.5 mg 11/22/18 10:30 11/23/18 08:49 Zestril PO 2.5 mg DAILY [facility] Administration Loratadine 10 mg 11/22/18 09:00 11/23/18 08:50 Claritin PO 10 mg DAILY [facility] Administration Magnesium Oxide 400 mg 11/22/18 09:00 11/23/18 08:49 Mag-Ox PO 400 mg DAILY [facility] Administration Metformin HCl 1,000 mg 11/22/18 09:00 11/23/18 08:49 Glucophage PO 1,000 mg BID [facility] Administration Naloxone HCl 0.2 mg 11/22/18 00:37 Narcan IV Q2M PRN Opioid Reversal Niacin 1,000 mg 11/22/18 21:00 11/22/18 22:27 Niacin Tr PO 1,000 mg HS [place] Administration Nitroglycerin 0.4 mg 11/22/18 10:15 Nitrostat SUBLINGUAL Q5M PRN Chest Pain Non-Formulary Medication 1.8 mg 11/22/18 10:30 11/23/18 08:52 Liraglutide [Victoza 2-Masood] SQ Not Given DAILY [facility] Ondansetron HCl 4 mg 11/22/18 00:37 Zofran IVP Q8HR PRN Nausea And Vomiting Pantoprazole Sodium 40 mg 11/22/18 07:30 11/23/18 07:06 Protonix PO 40 mg AC-BRKFST [place] Administration Intake and Output 11/22/18 11/23/18 11/23/18 22:59 06:59 14:59 Intake Total 600 490 Balance 600 490 Intake: IV 10 0.9 10 Oral 600 480 Other: Voiding Method Toilet Toilet # Voids 2 3 # Bowel Movements 1 11/22/18 18:10
--- NOTE | 2018-11-23 17:47 | ECHOF ---
Referral Reason:aicd fire, cm MEASUREMENTS -------- HEIGHT: 182.9 cm WEIGHT: 110.7 kg BP: RVIDd: 3.2 cm (< 3.3) IVSd: 1.0 cm (0.6 - 1.1) LVIDd: 5.9 cm (3.9 - 5.3) LVPWd: 1.0 cm (0.6 - 1.1) IVSs: 1.0 cm LVIDs: 4.9 cm LVPWs: 1.2 cm LAESV Index (A-L): 25.76 ml/m Ao Diam: 3.5 cm (2.0 - 3.7) AV Cusp: 2.2 cm (1.5 - 2.6) LA Diam: 3.7 cm (2.7 - 3.8) MV EXCURSION: 13.189 mm (> 18.000) MV EF SLOPE: 66 mm/s (70 - 150) EPSS: 1.3 cm MV E [place]: 0.87 m/s MV DecT: 220 ms MV A [place]: 0.81 m/s MV E/A Ratio: 1.07 RAP: 5.00 mmHg RVSP: 9.86 mmHg FINDINGS -------- Sinus rhythm. AICD This was a technically difficult study with suboptimal views. The left ventricle is mildly dilated. Left ventricular wall thickness is normal. There is severe global hypokinesis of LV . Overall left ventricular systolic function is severely impaired with, an EF between 20 - 25 %. The right ventricle is normal in size. The left atrial size is normal. Normal LA size by volume 22+/-6 ml/m2. The right atrial size is normal. Lumason used The aortic valve is trileaflet and appears structurally normal. The mitral valve leaflets are mildly thickened. Mild mitral annular calcification present. There is trace mitral regurgitation. Trace tricuspid regurgitation present. Right ventricular systolic pressure is normal at < 35 mmHg. There is no pulmonic regurgitation present. The aortic root size is normal. IVC Not well visulized. There is no pericardial effusion. CONCLUSIONS -------- 1. Sinus rhythm. 2. AICD 3. This was a technically difficult study with suboptimal views. 4. The left ventricle is mildly dilated. 5. Left ventricular wall thickness is normal. 6. There is severe global hypokinesis of LV . 7. Overall left ventricular systolic function is severely impaired with, an EF between 20 - 25 %. 8. The right ventricle is normal in size. 9. The left atrial size is normal. 10. Normal LA size by volume 22+/-6 ml/m2. 11. The right atrial size is normal. 12. Lumason used 13. The aortic valve is trileaflet and appears structurally normal. 14. The mitral valve leaflets are mildly thickened. 15. Mild mitral annular calcification present. 16. There is trace mitral regurgitation. 17. Trace tricuspid regurgitation present. 18. Right ventricular systolic pressure is normal at < 35 mmHg. 19. There is no pulmonic regurgitation present. 20. The aortic root size is normal. 21. IVC Not well visulized. 22. There is no pericardial effusion. [employer]: Destiny Barrett RDCS
--- NOTE | 2018-11-24 23:41 | P.DS ---
Providers Date of admission: 11/22/18 00:34 Expected date of discharge: 11/24/18 Attending physician: Jag Graves Consults: 11/22/18 11:42 Consult Physician Urgent Consulting Provider: Helder Yates Consult Reason/Comments: AICD firing Do you want consulting provider notified?: Yes Primary care physician: Deshawn Allen [facility] Course: Hospital course: This is a pleasant 53-year-old patient of Dr. Allen. Patient's laboratory animal caretaker is Dr. Anneliese Jenkins. Chronic stable medical conditions include coronary artery disease with stent in 2011 and a four-vessel coronary bypass. Chronic other stable medical conditions include congestive heart failure EF not known, diabetes, GERD, hyperlipidemia, hypertension. Patient presents with AICD firing 2 yesterday. No further episodes since then. A chest pain or shoulder but no nausea vomiting. No fever no chills. 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 Patient is left-handed. AICD was checked. . Cleared by cardiology to go home. No further episodes Consultation: Dr. Moran from cardiology Physical examination: VITAL SIGNS: 98.2, 89, 18, 118/58, 98% room air GENERAL: BMI 33.2, laying in bed, comfortable. EYES: Pupils equal. Conjunctiva normal. HEENT: External appearance of nose and ears normal, oral cavity grossly normal. NECK: JVD not raised; masses not palpable. HEART: First and second heart sounds are normal; no edema. LUNGS: Respiratory rate normal; decreased breath sounds. ABDOMEN: Soft, nontender, liver spleen not palpable, no masses palpable. PSYCH: Alert and oriented x3; mood and affect normal. NEUROLOGICAL: Cranial nerves grossly intact; no facial asymmetry, power and sensation grossly intact. INVESTIGATIONS, reviewed in the clinical context: Troponin I 2 negative Accu-Cheks 136 102 2-D echo showed EF of 2825% Assessment: -AICD firing 2 -Coronary artery disease a prior history of coronary bypass and stent -Chronic congestive heart failure EF 20-25% from underlying coronary artery disease -Diabetes mellitus type 2 chronically on insulin -GERD -Essential hypertension -Hyperlipidemia -Unilateral weakness of the right arm, congenital Disposition: Home Patient Condition at Discharge: Stable Plan - Discharge Summary Discharge Rx Participant: No New Discharge Prescriptions: Continue Gemfibrozil [Lopid] 600 mg PO AC-BID Niacin [Niacin ER] 1,000 mg PO HS Fluticasone Nasal [place] [Flonase Nasal [place]] 1 spr EA NOSTRIL DAILY Atorvastatin [Lipitor] 80 mg PO HS #30 tab Nitroglycerin Sl Tabs [Nitrostat] 0.4 mg SUBLINGUAL Q5M PRN #25 tab PRN Reason: Chest Pain Pantoprazole [Protonix] 40 mg PO AC-BRKFST #30 tablet. Apixaban [Eliquis] 5 mg PO BID Loratadine [Claritin] 10 mg PO DAILY Carvedilol [Coreg] 3.125 mg PO BID Furosemide [Lasix] 40 mg PO BID@0900,1600 Aspirin EC [Ecotrin Low Dose] 81 mg PO DAILY ARIPiprazole [Abilify] 5 mg PO DAILY Magnesium Oxide [Mag-Ox] 400 mg PO DAILY metFORMIN HCL [Glucophage] 1,000 mg PO BID Lisinopril [Zestril] 2.5 mg PO DAILY DULoxetine HCL [Cymbalta] 120 mg PO DAILY Insulin Degludec [Tresiba Flextouch U-100] 42 units SQ HS [place]-3 Acid Ethyl Esters [Lovaza] 1 gm PO BID Insulin Lispro [humaLOG Kwikpen] 7 unit SQ AC-TID HYDROcodone/APAP 7.5-325MG [[place] 7.5-325] 1 tab PO TID PRN 3 Days #9 tab PRN Reason: Pain Liraglutide [Victoza 2-Masood] 1.8 mg SQ DAILY Discharge Medication List Gemfibrozil [Lopid] 600 mg PO AC-BID 07/06/14 [History] Fluticasone Nasal [place] [Flonase Nasal [place]] 1 spr EA NOSTRIL DAILY 08/31/15 [History] Niacin [Niacin ER] 1,000 mg PO HS 08/31/15 [History] Atorvastatin [Lipitor] 80 mg PO HS #30 tab 09/04/15 [Rx] Nitroglycerin Sl Tabs [Nitrostat] 0.4 mg SUBLINGUAL Q5M PRN #25 tab 09/04/15 [Rx] Pantoprazole [Protonix] 40 mg PO AC-BRKFST #30 tablet. 09/04/15 [Rx] Apixaban [Eliquis] 5 mg PO BID 02/13/17 [History] Carvedilol [Coreg] 3.125 mg PO BID 02/13/17 [History] Loratadine [Claritin] 10 mg PO DAILY 02/13/17 [History] ARIPiprazole [Abilify] 5 mg PO DAILY 11/16/17 [History] Aspirin EC [Ecotrin Low Dose] 81 mg PO DAILY 11/16/17 [History] Furosemide [Lasix] 40 mg PO BID@0900,1600 11/16/17 [History] Magnesium Oxide [Mag-Ox] 400 mg PO DAILY 05/06/18 [History] DULoxetine HCL [Cymbalta] 120 mg PO DAILY 07/23/18 [History] Lisinopril [Zestril] 2.5 mg PO DAILY 07/23/18 [History] metFORMIN HCL [Glucophage] 1,000 mg PO BID 07/23/18 [History] Insulin Degludec [Tresiba Flextouch U-100] 42 units SQ HS 10/23/18 [History] Insulin Lispro [humaLOG Kwikpen] 7 unit SQ AC-TID 10/23/18 [History] [place]-3 Acid Ethyl Esters [Lovaza] 1 gm PO BID 10/23/18 [History] HYDROcodone/APAP 7.5-325MG [[place] 7.5-325] 1 tab PO TID PRN 3 Days #9 tab 10/25/18 [Rx] Liraglutide [Victoza 2-Masood] 1.8 mg SQ DAILY 11/21/18 [History] Follow up Appointment(s)/Referral(s): Deshawn Allen MD [Primary Care Provider] - 1-2 days Harjeet Jenkins MD [STAFF PHYSICIAN] - 1 Week Patient Instructions/Handouts: Implantable Cardioverter Defibrillator (DC) Discharge Disposition: HOME SELF-CARE
== END 2018-11-23 15:00 | disposition home or self-care (01) ==
LOC: EC 22:53 → 3SCARD 11-22 00:34
PROVIDERS: ADMIT Hospitalist; ATTEND Hospitalist
DX: T82.897A Other specified complication of cardiac prosthetic devices, implants and grafts, initial encounter (principal); I25.10 Atherosclerotic heart disease of native coronary artery without angina pectoris; I11.0 Hypertensive heart disease with heart failure; I50.22 Chronic systolic (congestive) heart failure; E11.9 Type 2 diabetes mellitus without complications; K21.9 Gastro-esophageal reflux disease without esophagitis; E78.5 Hyperlipidemia, unspecified; F32.9 Major depressive disorder, single episode, unspecified; F41.9 Anxiety disorder, unspecified; R53.1 Weakness; I25.5 Ischemic cardiomyopathy; I48.0 Paroxysmal atrial fibrillation; Z90.49 Acquired absence of other specified parts of digestive tract; Z95.1 Presence of aortocoronary bypass graft; Z95.5 Presence of coronary angioplasty implant and graft; Z87.891 Personal history of nicotine dependence; Z79.899 Other long term (current) drug therapy; Z79.01 Long term (current) use of anticoagulants; Z79.82 Long term (current) use of aspirin; Z79.4 Long term (current) use of insulin; Z83.3 Family history of diabetes mellitus; Z80.8 Family history of malignant neoplasm of other organs or systems
CPT/HCPCS: 99285; 36415; 80048; 83735; 84484; G0378 ×2; C8929; Q9950; 93306

== ENCOUNTER 2020-02-21 11:05 | Observation (INO) | payer MEDICARE, OTHER ==
--- NOTE | 2020-02-21 14:54 | P.HPIM ---
History of Present Illness This is a pleasant 54 years old male with past medical history of coronary artery disease, diabetes mellitus, hypertension, hyperlipidemia, sleep apnea, heart failure. He is status post AICD and CABG. Patient presents to the [facility] for dyspnea. He denies chest pain or dizziness or vomiting or palpitation Patient uses CPAP/BiPAP at night.Patient states he took his Eliquis and aspirin this morning Vitals are stable [facility] are reviewed Troponin 0.018 which is within the reference range, BNP is 26 which is within the reference range. Sodium 140, potassium 3.7, liver enzymes AST and ALT are not elevated with 27 and 26 respectively. Creatinine 1.2 which is within the reference range, GFR is more than 60%, glucose 70, total bilirubin 0.6. Magnesium 1.9. WBC is 10.2 K which is within the reference range, hemoglobin 12.9, platelets 232. Lactic acid is normal at 1.3 Chest x-ray report by radiologist states no acute cardiopulmonary process Review of Systems CONSTITUTIONAL: No fever, no malaise, no fatigue. HEENT: No recent visual problems or hearing problems. Denied any sore throat. CARDIOVASCULAR: No orthopnea, PND, no palpitations, no syncope. PULMONARY: No shortness of breath, no cough, no hemoptysis. GASTROINTESTINAL: No diarrhea, no nausea, no vomiting, no abdominal pain. Normoactive bowel sounds. NEUROLOGICAL: No headaches, no weakness, no numbness. HEMATOLOGICAL: Denies any bleeding or petechiae. GENITOURINARY: Denies any burning micturition, frequency, or urgency. MUSCULOSKELETAL/RHEUMATOLOGICAL: Denies any joint pain, swelling, or any muscle pain. ENDOCRINE: Denies any polyuria or polydipsia. 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 Past Anesthesia/Blood Transfusion Reactions: No Reported Reaction Date of Last Stent Placement:: 2011 Type of Cardiac Device: AICD Device Placement Date:: July 2014 Past Psychological History: Anxiety, Depression Smoking Status: Former smoker Past Alcohol Use History: None Reported Additional Past Alcohol Use History / Comment(s): QUIT SMOKING APPROX 2007, STARTED SMOKING AT AGE 18 Past Drug Use History: None Reported - Past Family History Mother Family Medical History: Diabetes Mellitus Father Family Medical History: Cancer Additional Family Medical History / Comment(s): LIVER Medications and Allergies Home Medications Medication Instructions Recorded Confirmed Type Gemfibrozil [Lopid] 600 mg PO AC-BID 07/06/14 02/21/20 History Fluticasone Nasal [place] [Flonase 1 spr EA NOSTRIL DAILY 08/31/15 02/21/20 History Nasal [place]] Niacin [Niacin ER] 1,000 mg PO HS 08/31/15 02/21/20 History Atorvastatin [Lipitor] 80 mg PO HS #30 tab 09/04/15 02/21/20 Rx Nitroglycerin Sl Tabs [Nitrostat] 0.4 mg SUBLINGUAL Q5M PRN #25 tab 09/04/15 02/21/20 Rx Pantoprazole [Protonix] 40 mg PO AC-BRKFST #30 tablet.dr 09/04/15 02/21/20 Rx Apixaban [Eliquis] 5 mg PO BID 02/13/17 02/21/20 History Loratadine [Claritin] 10 mg PO DAILY 02/13/17 02/21/20 History carvediloL [Coreg] 3.125 mg PO BID 02/13/17 02/21/20 History ARIPiprazole [Abilify] 5 mg PO DAILY 11/16/17 02/21/20 History Aspirin EC [Ecotrin Low Dose] 81 mg PO DAILY 11/16/17 02/21/20 History Furosemide [Lasix] 40 mg PO BID 11/16/17 02/21/20 History Magnesium Oxide [Mag-Ox] 400 mg PO DAILY 05/06/18 02/21/20 History DULoxetine HCL [Cymbalta] 120 mg PO DAILY 07/23/18 02/21/20 History lisinopriL [Zestril] 2.5 mg PO DAILY 07/23/18 02/21/20 History metFORMIN HCL [Glucophage] 1,000 mg PO BID 07/23/18 02/21/20 History Insulin Degludec [Tresiba 72 units SQ HS 10/23/18 02/21/20 History Flextouch U-100] Insulin Lispro [humaLOG Kwikpen] 16 unit SQ AC-TID MDD 70 units/day 10/23/18 02/21/20 History HYDROcodone/APAP 7.5-325MG [[place] 1 tab PO TID PRN 3 Days #9 tab 10/25/1802/20 Rx 7.5-325] Albuterol Sulfate [Ventolin HFA] 2 puff INHALATION RT-Q4H PRN 02/21/20 02/21/20 History Insulin Lispro [humaLOG Kwikpen] See Protocol SQ AC-TID PRN MDD 70 02/21/20 02/21/20 History units / day Isosorbide Mononitrate ER [Imdur] 30 mg PO DAILY 02/21/20 02/21/20 History Liraglutide [Victoza 3-Masood] 1.8 mg SQ DAILY 02/21/20 02/21/20 History traZODone HCL [Desyrel] 50 mg PO HS PRN 02/21/20 02/21/20 History Allergies Allergy/AdvReac Type Severity Reaction Status Date / Time No Known Allergies Allergy Verified 02/21/20 14:28 Physical Exam Vitals: Vital Signs Temp Pulse Resp BP Pulse Ox 02/21/20 13:47 98.1 F 99 16 128/72 100 Intake and Output 02/20/20 02/21/20 02/21/20 22:59 06:59 14:59 Other: Weight 115.2 kg GENERAL: The patient is alert and oriented x3, not in any acute distress. Well developed, well nourished. HEENT: Pupils are round and equally reacting to light. EOMI. No scleral icterus. No conjunctival pallor. Normocephalic, atraumatic. No pharyngeal erythema. No thyromegaly. CARDIOVASCULAR: S1 and S2 present. No murmurs, rubs, or gallops. PULMONARY: Chest is clear to auscultation, no wheezing or crackles. ABDOMEN: Soft, nontender, nondistended, normoactive bowel sounds. No palpable organomegaly. MUSCULOSKELETAL: No joint swelling or deformity. -EXTREMITIES: No cyanosis, clubbing, or pedal edema. Left lateral foot wound with no surrounding cellulitis NEUROLOGICAL: Gross neurological examination did not reveal any focal deficits. SKIN: No rashes. No petechiae Thrombosis Risk Factor Assmnt - Choose All That Apply Each Factor Represents 1 point: Medical pt on bed rest, Obesity (BMI >25) Each Risk Factor Represents 2 Points: Patient confined to bed Other congenital or acquired thrombophilia - If yes, enter type in comment: No Thrombosis Risk Factor Assessment Total Risk Factor Score: 4 Thrombosis Risk Factor Assessment Level: Moderate Risk Assessment and Plan Assessment: acute dyspnea, rule out cardiac causes. Chronic left foot wound Diabetes mellitus History of coronary artery disease status post CABG and AICD Hypertension Hyperlipidemia Sleep apnea on CPAP/BiPAP at night Plan: This is a pleasant 54 years old male who presents with dyspnea. We'll do serial troponin. Cardiology consult. equipment monitor phototypesetting. Wounds consult for his left foot Labs and medication were reviewed.. Continue same treatment. Continue with symptomatic treatment. Resume home medication. Monitor lytes and vitals. DVT and GI prophylaxis. Further recommendations depends on the clinical course of the patient DVT prophylaxis: Eliquis GI Prophylaxis: Pepcid Prognosis is guarded
[2020-02-21 16:09] LABS: ALT 23 U/L (4-49); AST 31 U/L (17-59); African American GFR (CKD) >90 (>60 ml/min/1.73 sqM); Albumin 4.4 g/dL (3.5-5.0); Alkaline Phosphatase 99 U/L (38-126); Anion Gap 10 mmol/L; Bilirubin, Delta 0.2 mg/dL (0.0-0.2); Bilirubin,Unconjugated 0.4 mg/dL (0.0-1.1); Blood Urea Nitrogen 31 mg/dL (9-20); Calcium 9.1 mg/dL (8.4-10.2); Carbon Dioxide 27 mmol/L (22-30); Chloride 96 mmol/L (98-107); Glucose 112 mg/dL (74-99); Magnesium 1.7 mg/dL (1.6-2.3); Non-African American GFR(CKD) 81 (>60 ml/min/1.73 sqM); Potassium 4.1 mmol/L (3.5-5.1); Sodium 133 mmol/L (137-145); Total Bilirubin 0.6 mg/dL (0.2-1.3); Total Protein 7.7 g/dL (6.3-8.2)
[2020-02-21] MEDS ORDERED: NITROGLYCERIN SL TABS 0.4 MG TAB SUBLINGUAL PRN (16:57)
[2020-02-21 17:00] LABS: Glucose,Whole Blood 116 mg/dL (75-99)
[2020-02-21] MEDS: carvediloL 3.125 MG TAB PO SCH (17:00)
[2020-02-21] MEDS: INSULIN ASPART (NovoLOG) 100 UNIT/ML VIAL SQ SCH ×2 (17:01→17:22)
[2020-02-21] MEDS: HYDROcodone/APAP 7.5-325MG 1 EACH TAB PO PRN (17:20)
[2020-02-21] MEDS: metFORMIN 500 MG TAB PO SCH (17:20)
[2020-02-21 20:22] LABS: Glucose,Whole Blood 148 mg/dL (75-99)
[2020-02-21] MEDS: FUROSEMIDE 40 MG TAB PO SCH (20:36)
[2020-02-21] MEDS: APIXABAN 5 MG TAB PO SCH (20:36)
[2020-02-21] MEDS: ATORVASTATIN 80 MG TAB PO SCH (20:36)
[2020-02-21] MEDS: ALBUTEROL NEBULIZED 2.5 MG/3 ML INHALATION PRN (21:02)
[2020-02-21] MEDS: INSULIN DETEMIR (LEVEMIR) 100 UNIT/ML SYR SQ SCH (21:45)
[2020-02-22 06:17] LABS: Glucose,Whole Blood 157 mg/dL (75-99)
[2020-02-22] MEDS: metFORMIN 500 MG TAB PO SCH ×2 (08:49→17:21)
[2020-02-22] MEDS: INSULIN ASPART (NovoLOG) 100 UNIT/ML VIAL SQ SCH ×6 (08:49→17:21)
[2020-02-22] MEDS: ISOSORBIDE MONONITRATE ER 30 MG TAB.ER.24H PO SCH (09:12)
[2020-02-22] MEDS: ASPIRIN 81 MG PO SCH (09:12)
[2020-02-22] MEDS: DULoxetine HCL 60 MG CAPSULE.DR PO SCH (09:12)
[2020-02-22] MEDS: MAGNESIUM OXIDE 400 MG TAB PO SCH (09:13)
[2020-02-22] MEDS: FUROSEMIDE 40 MG TAB PO SCH ×2 (09:13→21:06)
[2020-02-22] MEDS: ARIPiprazole 5 MG TAB PO SCH (09:13)
[2020-02-22] MEDS: FENOFIBRATE 160 MG TAB PO SCH (09:13)
[2020-02-22] MEDS: FLUTICASONE 50MCG/SPRAY NASAL 16GM EA NOSTRIL SCH (09:14)
[2020-02-22] MEDS: HYDROcodone/APAP 7.5-325MG 1 EACH TAB PO PRN ×2 (09:19→17:31)
[2020-02-22] MEDS: APIXABAN 5 MG TAB PO SCH ×2 (10:19→21:08)
[2020-02-22] MEDS: carvediloL 3.125 MG TAB PO SCH ×2 (10:20→17:22)
[2020-02-22 11:34] VITALS: BMI 34.4
--- NOTE | 2020-02-22 11:36 | P.CRDCN ---
History of Present Illness History of present illness: HISTORY OF PRESENTING ILLNESS This is a pleasant 54-year-old male past medical history significant for coronary artery disease status post bypass grafting, hypertension, dyslipidemia, paroxysmal atrial fibrillation on long-term anticoagulation, ischemic cardiomyopathy and history of ventricular tachycardia status post AICD placement. He follows in the office with Dr. Jenkins. We have been asked to see in consultation for angina. He states he woke up from sleep on Sunday night to use the bathroom. He took off his CPAP and started walking. While he was exerting himself he felt short of breath. No chest pain, dizziness or palpitations. Again the next morning when he got up to a bathroom he felt shortness of breath with exertion. At rest he appears comfortable equal and unlabored respirations. He initially went to [facility] while he had a chest x-ray that was negative for an acute cardiopulmonary process, NT proBNP was normal and initial troponin was unremarkable. He was transferred here for further cardiac evaluation. EKG reveals sinus mechanism, incomplete left bundle branch block and nonspecific ST abnormalities. Laboratory data reviewed, d-di nish 0.52, cardiac enzymes negative 2, sodium 133, potassium 4.1, magnesium 1.7 and creatinine 1.06. Currently maintained on Eliquis 5 mg twice a day, aspirin 81 mg daily, atorvastatin 80 mg daily, carvedilol 3.125 mg twice a day, Lasix 40 mg twice a day, Lopid 600 mg twice a day, Imdur 30 mg daily and lisinopril 2.5 mg daily. Most recent echocardiogram obtained November 2019 revealed impaired LV sy stolic function with ejection fraction 20-25%. Most recent stress test in the office was a Lexiscan stress test January 2019 revealing prior inferior wall AZ with LV dysfunction and no reversible ischemia. REVIEW OF SYSTEMS At the time of my exam: CONSTITUTIONAL: Denies fever or chills. CARDIOVASCULAR: Denies chest pain, shortness of breath, orthopnea, PND or palpitations. RESPIRATORY: Denies cough. GASTROINTESTINAL: Denies abdominal pain, diarrhea, constipation, nausea or vomiting. MUSCULOSKELETAL: Denies myalgias. NEUROLOGIC: Denies numbness, tingling or weakness. ENDOCRINE: Denies fatigue, weight change, polydipsia or polyurina. GENITOURINARY: Denies burning, hematuria or urgency with micturation. HEMATOLOGIC: Denies history of anemia or bleeding. PHYSICAL EXAMINATION Blood pressure 118/78 heart rate 85 afebrile and maintaining oxygen saturation on room air. CONSTITUTIONAL: No apparent distress. HEENT: Head is normocephalic. Pupils are equal, round. Sclerae anicteric. Mucous membranes of the mouth are moist. No JVD. No carotid bruit. CHEST EXAMINATION: Lungs are clear to auscultation. No chest wall tenderness is noted on palpation or with deep breathing. HEART EXAMINATION: Regular rate and rhythm. S1, S2 heard. No murmurs, gallops or rub. ABDOMEN: Soft, nontender. Positive bowel sounds. EXTREMITIES: 2+ peripheral pulses, no lower extremity edema and no calf tender ness. NEUROLOGIC EXAMINATION: Patient is awake, alert and oriented x3. ASSESSMENT Exertional dyspnea History of coronary artery disease status post bypass grafting Chronic systolic heart failure, clinically euvolemic Ischemic cardiomyopathy status post AICD placement Paroxysmal atrial fibrillation on long-term anticoagulation Hypertension Dyslipidemia Diabetes mellitus Obesity, BMI 34 PLAN Recommend proceeding with a Lexiscan stress test tomorrow morning to assess for reversible cardiac ischemia. If an abnormality is noted we will consider proceeding with coronary angiography. Clinically he is euvolemic and not in acute heart failure. We will not repeat an echocardiogram on this admission as he had one in November. Thank you kindly for this consultation. Nurse Practitioner note has been reviewed, I agree with a documented findings and plan of care. Patient was seen and examined. 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 Past Anesthesia/Blood Transfusion Reactions: No Reported Reaction Date of Last Stent Placement:: 2011 APPROX Type of Cardiac Device: AICD Device Placement Date:: July 2014 Past Psychological History: Anxiety, Depression Smoking Status: Former smoker Past Alcohol Use History: None Reported Additional Past Alcohol Use History / Comment(s): QUIT SMOKING APPROX 2007, STARTED SMOKING AT AGE 18 Past Drug Use History: None Reported - Past Family History Mother Family Medical History: Diabetes Mellitus Father Family Medical History: Cancer Additional Family Medical History / Comment(s): LIVER Medications and Allergies Home Medications Medication Instructions Recorded Confirmed Type Gemfibrozil [Lopid] 600 mg PO AC-BID 07/06/14 02/21/20 History Fluticasone Nasal [place] [Flonase 1 spr EA NOSTRIL DAILY 08/31/15 02/21/20 History Nasal [place]] Niacin [Niacin ER] 1,000 mg PO HS 08/31/15 02/21/20 History Atorvastatin [Lipitor] 80 mg PO HS #30 tab 09/04/15 02/21/20 Rx Nitroglycerin Sl Tabs [Nitrostat] 0.4 mg SUBLINGUAL Q5M PRN #25 tab 09/04/15 02/21/20 Rx Pantoprazole [Protonix] 40 mg PO AC-BRKFST #30 tablet. 09/04/15 02/21/20 Rx Apixaban [Eliquis] 5 mg PO BID 02/13/17 02/21/20 History Loratadine [Claritin] 10 mg PO DAILY 02/13/17 02/21/20 History carvediloL [Coreg] 3.125 mg PO BID 02/13/17 02/21/20 History ARIPiprazole [Abilify] 5 mg PO DAILY 11/16/17 02/21/20 History Aspirin EC [Ecotrin Low Dose] 81 mg PO DAILY 11/16/17 02/21/20 History Furosemide [Lasix] 40 mg PO BID 11/16/17 02/21/20 History Magnesium Oxide [Mag-Ox] 400 mg PO DAILY 05/06/18 02/21/20 History DULoxetine HCL [Cymbalta] 120 mg PO DAILY 07/23/18 02/21/20 History lisinopriL [Zestril] 2.5 mg PO DAILY 07/23/18 02/21/20 History metFORMIN HCL [Glucophage] 1,000 mg PO BID 07/23/18 02/21/20 History Insulin Degludec [Tresiba 72 units SQ HS 10/23/18 02/21/20 History Flextouch U-100] Insulin Lispro [humaLOG Kwikpen] 16 unit SQ AC-TID MDD 70 units/day 10/23/18 02/21/20 History HYDROcodone/APAP 7.5-325MG [[place] 1 tab PO TID PRN 3 Days #9 tab 10/25/18 02/21/20 Rx 7.5-325] Albuterol Sulfate [Ventolin HFA] 2 puff INHALATION RT-Q4H PRN 02/21/20 02/21/20 History Insulin Lispro [humaLOG Kwikpen] See Protocol SQ AC-TID PRN MDD 70 02/21/20 02/21/20 History units / day Isosorbide Mononitrate ER [Imdur] 30 mg PO DAILY 02/21/20 02/21/20 History Liraglutide [Victoza 3-Masood] 1.8 mg SQ DAILY 02/21/20 02/21/20 History traZODone HCL [Desyrel] 50 mg PO HS PRN 02/21/20 02/21/20 History Allergies Allergy/AdvReac Type Severity Reaction Status Date / Time No Known Allergies Allergy Verified 02/21/20 14:28 Physical Exam Vitals: Vital Signs Temp Pulse Pulse Resp BP Pulse Ox 02/22/20 09:00 85 20 02/22/20 07:22 97.6 F 85 20 118/78 96 02/22/20 03:03 97.8 F 83 20 100/53 96 02/21/20 21:14 96 02/21/20 21:03 96 02/21/20 20:35 98.1 F 99 20 117/67 95 02/21/20 13:47 98.1 F 99 16 128/72 100 Intake and Output 02/21/20 02/22/20 02/22/20 22:59 06:59 14:59 Intake Total 100 Balance 100 Intake: Oral 100 Other: Voiding Method Toilet Toilet Toilet Results 02/21/20 15:33 Cardiac Enzymes 02/21/20 02/21/20 02/21/20 Range/Units 15:33 17:57 23:47 AST 31 (17-59) U/L Troponin I <0.012 <0.012 (0.000-0.034) ng/mL Comprehensive Metabolic Panel 02/21/20 Range/Units 15:33 Sodium 133 L (137-145) mmol/L Potassium 4.1 (3.5-5.1) mmol/L Chloride 96 L (98-107) mmol/L Carbon Dioxide 27 (22-30) mmol/L BUN 31 H (9-20) mg/dL Creatinine 1.06 (0.66-1.25) mg/dL Glucose 112 H (74-99) mg/dL Calcium 9.1 (8.4-10.2) mg/dL Unconjugated Bilirubin 0.4 (0.0-1.1) mg/dL AST 31 (17-59) U/L ALT 23 (4-49) U/L Alkaline Phosphatase 99 (38-126) U/L Total Protein 7.7 (6.3-8.2) g/dL Albumin 4.4 (3.5-5.0) g/dL Current Medications Generic Name Dose Route Start Last Admin Trade Name Freq PRN Reason Stop Dose Admin Hydrocodone Bitart/Acetaminophen 1 each 02/21/20 16:57 02/22/20 09:19 Hydrocodone/Apap 7.5-325mg 1 Each Tab PO 1 each TID PRN Administration Pain Albuterol Sulfate 2.5 mg 02/21/20 14:45 02/21/20 21:02 Albuterol Nebulized 2.5 Mg/3 Ml INHALATION 2.5 mg RT-Q4H PRN Administration Shortness Of Breath Aminophylline 100 mg 02/23/20 07:00 Aminophylline 500 Mg/20 Ml Vial IV ONCE PRN Patient Response Apixaban 5 mg 02/21/20 21:00 02/22/20 10:19 Apixaban 5 Mg Tab PO Not Given BID [facility] Aripiprazole 5 mg 02/22/20 09:00 02/22/20 09:13 Aripiprazole 5 Mg Tab PO 5 mg DAILY [facility] Administration Aspirin 81 mg 02/22/20 09:00 02/22/20 09:12 Aspirin 81 Mg PO 81 mg DAILY [facility] Administration Atorvastatin Calcium 80 mg 02/21/20 21:00 02/21/20 20:36 Atorvastatin 80 Mg Tab PO 80 mg HS [facility] Administration Caffeine Citrate 60 mg 02/23/20 07:00 Caffeine Citrate 60 Mg/3 Ml Vial IV ONCE PRN Patient Response Carvedilol 3.125 mg 02/21/20 17:30 02/22/20 10:20 Carvedilol 3.125 Mg Tab PO 3.125 mg BID-W/MEALS [facility] Administration Duloxetine HCl 120 mg 02/22/20 09:00 02/22/20 09:12 Duloxetine Hcl 60 Mg Capsule.Dr PO 120 mg DAILY [facility] Administration Fenofibrate 160 mg 02/22/20 09:00 02/22/20 09:13 Fenofibrate 160 Mg Tab PO 160 mg DAILY [facility] Administration Fluticasone Propionate 1 spray 02/22/20 09:00 02/22/20 09:14 Fluticasone 50mcg/[place] Nasal 16gm EA NOSTRIL 1 spray DAILY [facility] Administration Furosemide 40 mg 02/21/20 21:00 02/22/20 09:13 Furosemide 40 Mg Tab PO 40 mg BID [place] Administration Insulin Aspart 0 unit 02/21/20 17:30 02/22/20 08:49 Insulin Aspart (Novolog) 100 Unit/Ml Vial SQ Not Given AC-TID [facility] Protocol Insulin Aspart 16 unit 02/21/20 17:30 02/22/20 08:49 Insulin Aspart (Novolog) 100 Unit/Ml Vial SQ Not Given AC-TID [facility] Insulin Detemir 35 unit 02/21/20 21:00 02/21/20 21:45 Insulin Detemir (Levemir) 100 Unit/Ml Syr SQ 35 unit HS [facility] Administration Isosorbide Mononitrate 30 mg 02/22/20 09:00 02/22/20 09:12 Isosorbide Mononitrate Er 30 Mg Tab.Er.24h PO 30 mg DAILY [facility] Administration Lisinopril 2.5 mg 02/22/20 09:00 02/22/20 09:13 Lisinopril 2.5 Mg Tab PO 2.5 mg DAILY [facility] Administration Magnesium Oxide 400 mg 02/22/20 09:00 02/22/20 09:13 Magnesium Oxide 400 Mg Tab PO 400 mg DAILY [facility] Administration Metformin HCl 1,000 mg 02/21/20 17:30 02/22/20 08:49 Metformin 500 Mg Tab PO Not Given BID-W/MEALS [facility] Nitroglycerin 0.4 mg 02/21/20 16:57 Nitroglycerin Sl Tabs 0.4 Mg Tab SUBLINGUAL Q5M PRN Chest Pain Regadenoson 0.4 mg 02/23/20 07:00 Regadenoson 0.4 Mg/5 Ml Syringe IV 02/23/20 07:01 ONCE ONE Intake and Output 02/21/20 02/22/20 02/22/20 22:59 06:59 14:59 Intake Total 100 Balance 100 Intake: Oral 100 Other: Voiding Method Toilet Toilet Toilet 02/21/20 15:33
[2020-02-22] MEDS: ALBUTEROL NEBULIZED 2.5 MG/3 ML INHALATION PRN (12:15)
--- NOTE | 2020-02-22 12:56 | P.PN ---
Subjective This is a pleasant 54 years old male with past medical history of coronary artery disease, diabetes mellitus, hypertension, hyperlipidemia, sleep apnea, heart failure. He is status post AICD and CABG. Patient presents to the [facility] for dyspnea. He denies chest pain or dizziness or vomiting or palpitation Patient uses CPAP/BiPAP at night.Patient states he took his Eliquis and aspirin this morning Vitals are stable [facility] are reviewed Troponin 0.018 which is within the reference range, BNP is 26 which is within the reference range. Sodium 140, potassium 3.7, liver enzymes AST and ALT are not elevated with 27 and 26 respectively. Creatinine 1.2 which is within the reference range, GFR is more than 60%, glucose 70, total bilirubin 0.6. Magnesium 1.9. WBC is 10.2 K which is within the reference range, hemoglobin 12.9, platelets 232. Lactic acid is normal at 1.3 Chest x-ray report by radiologist states no acute cardiopulmonary process 02/22/2020 Patient is lying in bed comfortable. No chest pain or dyspnea. Vitals are stable and d-dimer is negative at 0.5 to Cardiology team are planning for stress test tomorrow Objective - Vital Signs Vital signs: Vital Signs Temp 97.6 F 02/22/20 07:22 Pulse 92 02/22/20 12:25 Resp 20 02/22/20 09:00 BP 118/78 02/22/20 07:22 Pulse Ox 96 02/22/20 07:22 Intake & Output 02/21/20 02/22/20 02/22/20 18:59 06:59 18:59 Intake Total 100 Balance 100 Weight 115.2 kg 115.2 kg Intake: Oral 100 Other: Voiding Method Toilet Toilet Toilet - Exam GENERAL: The patient is alert and oriented x3, not in any acute distress. Well developed, well nourished. HEENT: Pupils are round and equally reacting to light. EOMI. No scleral icterus. No conjunctival pallor. Normocephalic, atraumatic. No pharyngeal erythema. No t hyromegaly. CARDIOVASCULAR: S1 and S2 present. No murmurs, rubs, or gallops. PULMONARY: Chest is clear to auscultation, no wheezing or crackles. ABDOMEN: Soft, nontender, nondistended, normoactive bowel sounds. No palpable organomegaly. MUSCULOSKELETAL: No joint swelling or deformity. EXTREMITIES: No cyanosis, clubbing, or pedal edema. NEUROLOGICAL: Gross neurological examination did not reveal any focal deficits. SKIN: No rashes. no petechiae. - Labs CBC & Chem 7: 02/21/20 15:33 Labs: Abnormal Lab Results - Last 24 Hours (Table) 02/21/20 02/21/20 02/21/20 Range/Units 15:33 16:58 20:20 Sodium 133 L (137-145) mmol/L Chloride 96 L (98-107) mmol/L BUN 31 H (9-20) mg/dL Glucose 112 H (74-99) mg/dL POC Glucose (mg/dL) 116 H 148 H (75-99) mg/dL 02/22/20 Range/Units 06:15 Sodium (137-145) mmol/L Chloride (98-107) mmol/L BUN (9-20) mg/dL Glucose (74-99) mg/dL POC Glucose (mg/dL) 157 H (75-99) mg/dL Assessment and Plan Assessment: acute dyspnea, rule out cardiac causes. Chronic left foot wound Diabetes mellitus History of coronary artery disease status post CABG and AICD Hypertension Hyperlipidemia Sleep apnea on CPAP/BiPAP at night Plan: This is a pleasant 54 years old male who presents with dyspnea. We'll do serial troponin. Cardiology consult. monitor tech. Wounds consult for his left foot Labs and medication were reviewed.. Continue same treatment. Continue with symptomatic treatment. Resume home medication. Monitor lytes and vitals. DVT and GI prophylaxis. Further recommendations depends on the clinical course of the patient DVT prophylaxis: Eliquis GI Prophylaxis: Pepcid Prognosis is guarded
[2020-02-22 15:23] VITALS: RESP 18
[2020-02-22 16:49] LABS: Glucose,Whole Blood 138 mg/dL (75-99)
[2020-02-22 20:04] LABS: Glucose,Whole Blood 144 mg/dL (75-99)
[2020-02-22] MEDS: ATORVASTATIN 80 MG TAB PO SCH (21:05)
[2020-02-22] MEDS: INSULIN DETEMIR (LEVEMIR) 100 UNIT/ML SYR SQ SCH (21:06)
[2020-02-23] MEDS ORDERED: REGADENOSON 0.4 MG/5 ML SYRINGE IV ONE (07:00)
[2020-02-23] MEDS ORDERED: AMINOPHYLLINE 500 MG/20 ML VIAL IV PRN (07:00)
[2020-02-23] MEDS ORDERED: CAFFEINE CITRATE 60 MG/3 ML VIAL IV PRN (07:00)
[2020-02-23 07:19] LABS: Glucose,Whole Blood 174 mg/dL (75-99)
[2020-02-23] MEDS: metFORMIN 500 MG TAB PO SCH ×2 (07:59→17:13)
[2020-02-23] MEDS: carvediloL 3.125 MG TAB PO SCH ×2 (07:59→17:13)
[2020-02-23] MEDS: INSULIN ASPART (NovoLOG) 100 UNIT/ML VIAL SQ SCH ×6 (07:59→18:49)
[2020-02-23] MEDS: ASPIRIN 81 MG PO SCH (09:08)
[2020-02-23] MEDS: DULoxetine HCL 60 MG CAPSULE.DR PO SCH (09:08)
[2020-02-23] MEDS: APIXABAN 5 MG TAB PO SCH (09:08)
[2020-02-23] MEDS: ARIPiprazole 5 MG TAB PO SCH (09:08)
[2020-02-23] MEDS: FENOFIBRATE 160 MG TAB PO SCH (09:09)
[2020-02-23] MEDS: FLUTICASONE 50MCG/SPRAY NASAL 16GM EA NOSTRIL SCH (09:09)
[2020-02-23] MEDS: FUROSEMIDE 40 MG TAB PO SCH (09:09)
[2020-02-23] MEDS: ISOSORBIDE MONONITRATE ER 30 MG TAB.ER.24H PO SCH (09:10)
[2020-02-23] MEDS: MAGNESIUM OXIDE 400 MG TAB PO SCH (10:02)
[2020-02-23 11:43] LABS: Glucose,Whole Blood 180 mg/dL (75-99)
--- NOTE | 2020-02-23 12:01 | P.PN ---
Subjective Progress Note Date: 02/23/20 HISTORY OF PRESENTING ILLNESS This is a pleasant 54-year-old male past medical history significant for coronary artery disease status post bypass grafting, hypertension, dyslipidemia, paroxysmal atrial fibrillation on long-term anticoagulation, ischemic cardiomyopathy and history of ventricular tachycardia status post AICD placement. He follows in the office with Dr. Jenkins. We have been asked to see in consultation for angina. He states he woke up from sleep on Sunday night to use the bathroom. He took off his CPAP and started walking. While he was exerting himself he felt short of breath. No chest pain, dizziness or palpitations. Again the next morning when he got up to a bathroom he felt shortness of breath with exertion. At rest he appears comfortable equal and unlabored respirations. He initially went to [facility] while he had a chest x-ray that was negative for an acute cardiopulmonary process, NT proBNP was normal and initial troponin was unremarkable. He was transferred here for further cardiac evaluation. EKG reveals sinus mechanism, incomplete left bundle branch block and nonspecific ST abnormalities. Laboratory data reviewed, d- dimer 0.52, cardiac enzymes negative 2, sodium 133, potassium 4.1, magnesium 1.7 and creatinine 1.06. Currently maintained on Eliquis 5 mg twice a day, aspirin 81 mg daily, atorvastatin 80 mg daily, carvedilol 3.125 mg twice a day, Lasix 40 mg twice a day, Lopid 600 mg twice a day, Imdur 30 mg daily and lisinopril 2.5 mg daily. Most recent echocardiogram obtained November 2019 revealed impaired LV systolic function with ejection fraction 20-25%. Most recent stress test in the office was a Lexiscan stress test January 2019 revealing prior inferior wall NH with LV dysfunction and no reversible ischemia. 02/23/2020 patient seen and examined. Patient denies any chest pain or pressure overnight. No shortness of breath. Tolerating diet. No complaints per patient. REVIEW OF SYSTEMS At the time of my exam: CONSTITUTIONAL: Denies fever or chills. CARDIOVASCULAR: Denies chest pain, shortness of breath, orthopnea, PND or palpitations. RESPIRATORY: Denies cough. GASTROINTESTINAL: Denies abdominal pain, diarrhea, constipation, nausea or vomiting. MUSCULOSKELETAL: Denies myalgias. NEUROLOGIC: Denies numbness, tingling or weakness. ENDOCRINE: Denies fatigue, weight change, polydipsia or polyurina. GENITOURINARY: Denies burning, hematuria or urgency with micturation. HEMATOLOGIC: Denies history of anemia or bleeding. PHYSICAL EXAMINATION Blood pressure 115/57 heart rate 97 afebrile and maintaining oxygen saturation on room air. CONSTITUTIONAL: No apparent distress. HEENT: Head is normocephalic. Pupils are equal, round. Sclerae anicteric. Mucous membranes of the mouth are moist. No JVD. No carotid bruit. CHEST EXAMINATION: Lungs are clear to auscultation. No chest wall tenderness is noted on palpation or with deep breathing. HEART EXAMINATION: Regular rate and rhythm. S1, S2 heard. No murmurs, gallops or rub. ABDOMEN: Soft, nontender. Positive bowel sounds. EXTREMITIES: 2+ peripheral pulses, no lower extremity edema and no calf tenderness. NEUROLOGIC EXAMINATION: Patient is awake, alert and oriented x3. ASSESSMENT Exertional dyspnea History of coronary artery disease status post bypass grafting Chronic systolic heart failure, clinically euvolemic Ischemic cardiomyopathy status post AICD placement Paroxysmal atrial fibrillation on long-term anticoagulation Hypertension Dyslipidemia Diabetes mellitus Obesity, BMI 34 PLAN No evidence of heart failure on exam. Continue with heart failure regimen and antianginals. Check Lexiscan stress test today. If no reversible ischemia, luis f watson may be discharged home. Objective - Vital Signs Vital signs: Vital Signs Temp 97.9 F 02/23/20 09:00 Pulse 97 02/23/20 09:00 Resp 18 02/23/20 09:00 BP 115/57 02/23/20 09:00 Pulse Ox 95 02/23/20 09:00 Intake & Output 02/22/20 02/23/20 02/23/20 18:59 06:59 18:59 Intake Total 2150 1000 Balance 2150 1000 Weight 115.2 kg Intake: Oral 2150 1000 Other: Voiding Method Toilet Toilet # Voids 1 1 - Labs CBC & Chem 7: 02/21/20 15:33 Labs: Abnormal Lab Results - Last 24 Hours (Table) 02/22/20 02/22/20 02/23/20 Range/Units 16:43 20:03 07:18 POC Glucose (mg/dL) 138 H 144 H 174 H (75-99) mg/dL 02/23/20 Range/Units 11:40 POC Glucose (mg/dL) 180 H (75-99) mg/dL
--- NOTE | 2020-02-23 12:35 | P.CONS ---
History of Present Illness - Reason for Consult Consult date: 02/23/20 wound care - History of Present Illness This is a 54-year-old patient being seen by the wound care center for nonhealing ulceration to the left lateral foot. Patient sees Dr. Winn at [facility] wound care center he has been utilizing Hydrofera Blue. Patient has been tolerating dressings without any difficulties. Patient has medical history significant for coronary disease, diabetes mellitus, hypertension, hyperlipidemia, obstructive sleep apnea, CHF, he had recently had an AICD placement and previous CABG. Review of Systems Review Of Systems: Constitutional: No fever, no chills, no night sweats. No weight change. No weakness, fatigue or lethargy. No daytime sleepiness. Integumentary:reports wounds, no lesions. No rash or pruritus. No unusual bruising. No change in hair or nails. 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 Past Anesthesia/Blood Transfusion Reactions: No Reported Reaction Date of Last Stent Placement:: 2011 APPROX Type of Cardiac Device: AICD Device Placement Date:: July 2014 Past Psychological History: Anxiety, Depression Smoking Status: Former smoker Past Alcohol Use History: None Reported Additional Past Alcohol Use History / Comment(s): QUIT SMOKING APPROX 2007, STARTED SMOKING AT AGE 18 Past Drug Use History: None Reported - Past Family History Mother Family Medical History: Diabetes Mellitus Father Family Medical History: Cancer Additional Family Medical History / Comment(s): LIVER Medications and Allergies Home Medications Medication Instructions Recorded Confirmed Type Gemfibrozil [Lopid] 600 mg PO AC-BID 07/06/14 02/21/20 History Fluticasone Nasal [place] [Flonase 1 spr EA NOSTRIL DAILY 08/31/15 02/21/20 History Nasal [place]] Niacin [Niacin ER] 1,000 mg PO HS 08/31/15 02/21/20 History Atorvastatin [Lipitor] 80 mg PO HS #30 tab 09/04/15 02/21/20 Rx Nitroglycerin Sl Tabs [Nitrostat] 0.4 mg SUBLINGUAL Q5M PRN #25 tab 09/04/15 02/21/20 Rx Pantoprazole [Protonix] 40 mg PO AC-BRKFST #30 tablet. 09/04/15 02/21/20 Rx Apixaban [Eliquis] 5 mg PO BID 02/13/17 02/21/20 History Loratadine [Claritin] 10 mg PO DAILY 02/13/17 02/21/20 History carvediloL [Coreg] 3.125 mg PO BID 02/13/17 02/21/20 History ARIPiprazole [Abilify] 5 mg PO DAILY 11/16/17 02/21/20 History Aspirin EC [Ecotrin Low Dose] 81 mg PO DAILY 11/16/17 02/21/20 History Furosemide [Lasix] 40 mg PO BID 11/16/17 02/21/20 History Magnesium Oxide [Mag-Ox] 400 mg PO DAILY 05/06/18 02/21/20 History DULoxetine HCL [Cymbalta] 120 mg PO DAILY 07/23/18 02/21/20 History lisinopriL [Zestril] 2.5 mg PO DAILY 07/23/18 02/21/20 History metFORMIN HCL [Glucophage] 1,000 mg PO BID 07/23/18 02/21/20 History Insulin Degludec [Tresiba 72 units SQ HS 10/23/18 02/21/20 History Flextouch U-100] Insulin Lispro [humaLOG Kwikpen] 16 unit SQ AC-TID MDD 70 units/day 10/23/18 02/21/20 History HYDROcodone/APAP 7.5-325MG [[place] 1 tab PO TID PRN 3 Days #9 tab 10/25/18 02/21/20 Rx 7.5-325] Albuterol Sulfate [Ventolin HFA] 2 puff INHALATION RT-Q4H PRN 02/21/20 02/21/20 History Insulin Lispro [humaLOG Kwikpen] See Protocol SQ AC-TID PRN MDD 70 02/21/20 02/21/20 History units / day Isosorbide Mononitrate ER [Imdur] 30 mg PO DAILY 02/21/20 02/21/20 History Liraglutide [Victoza 3-Masood] 1.8 mg SQ DAILY 02/21/20 02/21/20 History traZODone HCL [Desyrel] 50 mg PO HS PRN 02/21/20 02/21/20 History Allergies Allergy/AdvReac Type Severity Reaction Status Date / Time No Known Allergies Allergy Verified 02/21/20 14:28 Physical Exam Vitals: Vital Signs Temp Pulse Resp BP Pulse Ox 02/23/20 09:00 97.9 F 97 18 115/57 95 02/22/20 21:00 98.1 F 93 17 109/64 95 02/22/20 15:00 98.0 F 71 18 102/59 98 Intake and Output 02/22/20 02/23/20 02/23/20 22:59 06:59 14:59 Intake Total 1000 Balance 1000 Intake: Oral 1000 Other: Voiding Method Toilet # Voids 1 Physical exam: General Appearance: Alert, cooperative, no distress, appears stated age. Skin: Full thickness diabetic foot ulcer Venegas grade 3 to the left lateral foot. Fat layer exposed. Minimal granulation seen within the wound bed moderate slough noted. Wound edges attached to the wound base. No tunneling or undermining noted. Periwound shows erythema. all other Skin color, texture, tugor normal, no rashes or lesions. Neurologic: Alert oriented x3 Results CBC & Chem 7: 02/21/20 15:33 Labs: Abnormal Lab Results - Last 24 Hours (Table) 02/22/20 02/22/20 02/23/20 Range/Units 16:43 20:03 07:18 POC Glucose (mg/dL) 138 H 144 H 174 H (75-99) mg/dL 02/23/20 Range/Units 11:40 POC Glucose (mg/dL) 180 H (75-99) mg/dL Assessment and Plan (1) Non-healing ulcer of left foot with fat layer exposed Current Visit: Yes Status: Acute Code(s): L97.522 - NON-PRS CHRONIC ULCER OTH PRT LEFT FOOT W FAT LAYER EXPOSED SNOMED Code(s): 847276288 (2) Diabetic ulcer of left foot Current Visit: No Status: Acute Code(s): E11.621 - TYPE 2 DIABETES MELLITUS WITH FOOT ULCER; L97.529 - NON-PRESSURE CHRONIC ULCER OTH PRT LEFT FOOT W UNSP SEVERITY SNOMED Code(s): 814607669 Plan: Apply absorptive silver, saline moistened gauze, dry gauze, rolled gauze and sec ure with paper tape. Nonweightbearing to the left forefoot. Patient to return to his wound care visits with Dr. Garcia upon discharge. Patient may utilize Hydrofera Blue upon discharge. Thank you kindly for the consultation and questions please contact the wound care center DNP note has been reviewed and discussed with Dr. Puentes and the impression and plan of care has been directed as dictated.
--- NOTE | 2020-02-23 13:57 | P.STRESS ---
- Stress Test Note Stress Test Results/Findings: Exam Performed: NM stress lexiscan cardiolite Exam Date: 02/23/20 Reason for Exam: Shortness of breath Height: 6 ft Weight: 115.2 kg Protocol: Lexiscan Stage: na Duration of Exercise: na Resting Heart Rate: 86 Resting Blood Pressure: 113/70 Maximum Achieved Heart Rate: 101 Maximum Achieved Blood Pressure: 113/70 85% PMHR: na 100% PMHR: na METS: na Technologist Comment: Stress Test Results/Findings: At baseline EKG showed normal sinus rhythm, normal axis, nonspecific inte rventricular conduction delay with ST depressions in the inferior and lateral leads. Patient recieved IV infusion of Lexiscan 0.4mg and at peak infusion EKG showed no significant change from baseline. Conclusions: 1. Normal EKG response to Lexiscan infusion 2. Nuclear imaging to be reported separately.
--- NOTE | 2020-02-23 14:00 | NM ---
EXAMINATION TYPE: NM stress lexiscan cardiolite DATE OF EXAM: 02/23/2020 COMPARISON: Exam 02/13/2017 HISTORY: Exertional dyspnea TECHNIQUE: After the intravenous administration of 9.78 mCi Tc 99m Sestamibi - Cardiolite resting SP ECT images acquired 45 minutes post injection. The patient received 0.4mg Lexiscan, 24.9 mCi Tc 99m Sestamibi - Stress images obtained [address] injection FINDINGS: Review of stress and rest SPECT images demonstrates decreased uptake along the anterior wall, lateral wall, inferior wall and apex on stress and rest images. Some decreased uptake noted at the inferior wall greater on stress than rest images extending into the apex. Decreased uptake also noted along t he inferolateral wall liter on stress than on rest images. Gated analysis shows global hypokinesis wi th an estimated left ventricular ejection fraction of 14 %. IMPRESSION: Findings consistent with previous infarcts, carleen-infarct pharmacologically induced left ventricular m yocardial ischemia, abnormal low wall motion, correlate with echocardiogram
[2020-02-23 15:18] VITALS: BP 122/63; PULSE 98; TEMP 97.7
[2020-02-23 16:39] LABS: Glucose,Whole Blood 191 mg/dL (75-99)
--- NOTE | 2020-02-23 22:58 | P.DS ---
Providers Date of admission: 02/21/20 13:45 Attending physician: Roscoe Gold MD Consults: 02/21/20 14:47 Consult Physician Urgent Consulting Provider: Osvaldo Moran Consult Reason/Comments: unstable anina Do you want consulting provider notified?: Yes Primary care physician: Roscoe Gold MD Hospital Course: Diagnoses: acute dyspnea, rule out cardiac causes. Chronic left foot wound Diabetes mellitus History of coronary artery disease status post CABG and AICD Hypertension Hyperlipidemia Sleep apnea on CPAP/BiPAP at night Hospital course: This is a pleasant 54 years old male with past medical history of coronary artery disease, diabetes mellitus, hypertension, hyperlipidemia, sleep apnea, heart failure. He is status post AICD and CABG. Patient presents to the [facility] for dyspnea. Patient uses CPAP/BiPAP at night.. He denies chest pain or dizziness or vomiting or palpitation Troponin 0.018 which is within the reference range. D-dimer checked this hospital was negative at 0.52. Entry Writer evaluated the patient and recommended stress test:Finding consistent with previous infarct, carleen-infarct ischemia, abnormal low wall motion. After the test wood form builder contact the staff stating there is no change from previous wood form builder workup and patient is stable from cardiac perspective for discharge Patient has been evaluated by wound care team for his chronic left foot wound and the recommended Non-weightbearing to the left forefoot. Patient to return to his wound care visits with Dr. Garcia upon discharge. Patient informed Patient denies chest pain, no change in urine or bowel habits. No abdominal pain or nausea vomiting. He is tolerating diet well. No fever Patient is medically stable and he was cleared for discharge by wood form builder team Problems and management plan were discussed with the patient and he verbalized understanding and acceptance Patient was found stable and can be discharged home however he needs follow-up as an outpatient. Patient was instructed to follow up with PCP Dr. Manrique within one week and patient agrees. Also patient was instructed to follow up with his wood form builder within 1-2 weeks and he agrees to call and make Appointments Gen: patient is a AAOx3, no distress CVS: S1-S2, RRR, no murmur Lungs: B/L CTA, no wheezing Abdomen: soft, no distention, no tenderness, positive bowel sounds -Extremity: no leg edema or induration. Chronic left lateral wound over the distal forefoot with no surrounding cellulitis Time spent more than 35 minutes Patient Condition at Discharge: Good Plan - Discharge Summary Discharge Rx Participant: No New Discharge Prescriptions: Continue Gemfibrozil [Lopid] 600 mg PO AC-BID Niacin [Niacin ER] 1,000 mg PO HS Fluticasone Nasal [place] [Flonase Nasal [place]] 1 spr EA NOSTRIL DAILY Atorvastatin [Lipitor] 80 mg PO HS #30 tab Nitroglycerin Sl Tabs [Nitrostat] 0.4 mg SUBLINGUAL Q5M PRN #25 tab PRN Reason: Chest Pain Pantoprazole [Protonix] 40 mg PO AC-BRKFST #30 tablet. Apixaban [Eliquis] 5 mg PO BID carvediloL [Coreg] 3.125 mg PO BID Furosemide [Lasix] 40 mg PO BID Aspirin EC [Ecotrin Low Dose] 81 mg PO DAILY ARIPiprazole [Abilify] 5 mg PO DAILY Magnesium Oxide [Mag-Ox] 400 mg PO DAILY metFORMIN HCL [Glucophage] 1,000 mg PO BID lisinopriL [Zestril] 2.5 mg PO DAILY DULoxetine HCL [Cymbalta] 120 mg PO DAILY Insulin Degludec [Tresiba Flextouch U-100] 72 units SQ HS Insulin Lispro [humaLOG Kwikpen] 16 unit SQ AC-TID MDD 70 units/day HYDROcodone/APAP 7.5-325MG [[place] 7.5-325] 1 tab PO TID PRN 3 Days #9 tab PRN Reason: Pain traZODone HCL [Desyrel] 50 mg PO HS PRN PRN Reason: sleep Liraglutide [Victoza 3-Masood] 1.8 mg SQ DAILY Albuterol Sulfate [Ventolin HFA] 2 puff INHALATION RT-Q4H PRN PRN Reason: Shortness Of Breath Isosorbide Mononitrate ER [Imdur] 30 mg PO DAILY Insulin Lispro [humaLOG Kwikpen] See Protocol SQ AC-TID PRN MDD 70 units / day PRN Reason: high blood sugar Discontinued Loratadine [Claritin] 10 mg PO DAILY Discharge Medication List Gemfibrozil [Lopid] 600 mg PO AC-BID 07/06/14 [History] Fluticasone Nasal [place] [Flonase Nasal [place]] 1 spr EA NOSTRIL DAILY 08/31/15 [History] Niacin [Niacin ER] 1,000 mg PO HS 08/31/15 [History] Atorvastatin [Lipitor] 80 mg PO HS #30 tab 09/04/15 [Rx] Nitroglycerin Sl Tabs [Nitrostat] 0.4 mg SUBLINGUAL Q5M PRN #25 tab 09/04/15 [Rx] Pantoprazole [Protonix] 40 mg PO AC-BRKFST #30 tablet.dr 09/04/15 [Rx] Apixaban [Eliquis] 5 mg PO BID 02/13/17 [History] carvediloL [Coreg] 3.125 mg PO BID 02/13/17 [History] ARIPiprazole [Abilify] 5 mg PO DAILY 11/16/17 [History] Aspirin EC [Ecotrin Low Dose] 81 mg PO DAILY 11/16/17 [History] Furosemide [Lasix] 40 mg PO BID 11/16/17 [History] Magnesium Oxide [Mag-Ox] 400 mg PO DAILY 05/06/18 [History] DULoxetine HCL [Cymbalta] 120 mg PO DAILY 07/23/18 [History] lisinopriL [Zestril] 2.5 mg PO DAILY 07/23/18 [History] metFORMIN HCL [Glucophage] 1,000 mg PO BID 07/23/18 [History] Insulin Degludec [Tresiba Flextouch U-100] 72 units SQ HS 10/23/18 [History] Insulin Lispro [humaLOG Kwikpen] 16 unit SQ AC-TID MDD 70 units/day 10/23/18 [History] HYDROcodone/APAP 7.5-325MG [[place] 7.5-325] 1 tab PO TID PRN 3 Days #9 tab 10/25/18 [Rx] Albuterol Sulfate [Ventolin HFA] 2 puff INHALATION RT-Q4H PRN 02/21/20 [History] Insulin Lispro [humaLOG Kwikpen] See Protocol SQ AC-TID PRN MDD 70 units / day 02/21/20 [History] Isosorbide Mononitrate ER [Imdur] 30 mg PO DAILY 02/21/20 [History] Liraglutide [Victoza 3-Masood] 1.8 mg SQ DAILY 02/21/20 [History] traZODone HCL [Desyrel] 50 mg PO HS PRN 02/21/20 [History] Follow up Appointment(s)/Referral(s): Harjeet Jenkins MD [STAFF PHYSICIAN] - 03/03/20 10:30 am Patient Instructions/Handouts: Chest Pain (GEN) Activity/Diet/Wound Care/Special Instructions: we recommend Non-weightbearing to the left forefoot. Patient to return to his wound care visits with Dr. Garcia upon discharge.please call to make appointment in one week follow up with your primary care doctor in one week, please call to make appointment heart healthy diet activity is limited till you see your doctor Discharge Disposition: HOME SELF-CARE
--- NOTE | 2020-02-24 08:13 | ECHOS ---
Stress Test Results/Findings: Exam Performed: NM stress lexiscan cardiolite Exam Date: 02/23/20 Reason for Exam: Shortness of breath Height: 6 ft Weight: 115.2 kg Protocol: Lexiscan Stage: na Duration of Exercise: na Resting Heart Rate: 86 Resting Blood Pressure: 113/70 Maximum Achieved Heart Rate: 101 Maximum Achieved Blood Pressure: 113/70 85% PMHR: na 100% PMHR: na METS: na Technologist Comment: Stress Test Results/Findings: At baseline EKG showed normal sinus rhythm, normal axis, nonspecific interventricular conduction delay with ST depressions in the inferior and lateral leads. Patient recieved IV infusion of Lexiscan 0.4mg and at peak infusion EKG showed no significant change from baseline. Conclusions: 1. Normal EKG response to Lexiscan infusion 2. Nuclear imaging to be reported separately. MTDD
== END 2020-02-23 19:55 | disposition home or self-care (01) ==
LOC: 1SOBS 13:45
PROVIDERS: ADMIT Internal Medicine; ATTEND Internal Medicine
DX: R06.00 Dyspnea, unspecified (principal); I25.10 Atherosclerotic heart disease of native coronary artery without angina pectoris; I11.0 Hypertensive heart disease with heart failure; I50.22 Chronic systolic (congestive) heart failure; E11.9 Type 2 diabetes mellitus without complications; K21.9 Gastro-esophageal reflux disease without esophagitis; E78.5 Hyperlipidemia, unspecified; G47.30 Sleep apnea, unspecified; Z99.89 Dependence on other enabling machines and devices; E11.621 Type 2 diabetes mellitus with foot ulcer; Z89.422 Acquired absence of other left toe(s); Z95.810 Presence of automatic (implantable) cardiac defibrillator; Z90.49 Acquired absence of other specified parts of digestive tract; Z95.1 Presence of aortocoronary bypass graft; Z95.5 Presence of coronary angioplasty implant and graft; Z98.890 Other specified postprocedural states; F41.9 Anxiety disorder, unspecified; F32.9 Major depressive disorder, single episode, unspecified; Z87.891 Personal history of nicotine dependence; Z83.3 Family history of diabetes mellitus; Z80.0 Family history of malignant neoplasm of digestive organs; Z79.899 Other long term (current) drug therapy; E66.9 Obesity, unspecified; Z68.34 Body mass index [BMI] 34.0-34.9, adult; I25.2 Old myocardial infarction; I25.5 Ischemic cardiomyopathy; I44.7 Left bundle-branch block, unspecified; I48.0 Paroxysmal atrial fibrillation; Z79.01 Long term (current) use of anticoagulants; Z79.82 Long term (current) use of aspirin; Z79.4 Long term (current) use of insulin
CPT/HCPCS: 93005 ×2; 94660 ×3; 94640 ×2; 93017; 85379; 80048; 80076; 83735; 84484; 78452; G0378 ×3; G0379; A9500; J2785